=== PATIENT | male | born 1995 | race Caucasian/White ===

== ENCOUNTER → 2018-10-17 | Outpatient (CLI) | payer OTHER, MEDICAID ==
[~2018-10-17] MED LIST: ACET-683 PO; INVE234I IM
[2018-10-17 11:12] LABS: CHOLESTEROL RISK RATIO 2.781 (<5)
== END ==
LOC: M LAB 09:44
PROVIDERS: ATTEND Family Medicine
DX: Z13.1 Encounter for screening for diabetes mellitus (principal); Z13.220 Encounter for screening for lipoid disorders

== ENCOUNTER → 2019-04-24 | Outpatient (CLI) | payer OTHER, MEDICAID ==
[2019-04-24 13:51] LABS: ALT/SGPT 30 U/L (12-78); BILIRUBIN,TOTAL 0.4 MG/DL (0.2-1.0); BLOOD UREA NITROGEN 12 MG/DL (7-18); CALCIUM LEVEL 9.3 MG/DL (8.5-10.1); CARBON DIOXIDE LEVEL 27 MEQ/L (21-32); CHLORIDE LEVEL 104 MEQ/L (98-107); CHOLESTEROL LEVEL 159 MG/DL (<200); CHOLESTEROL RISK RATIO 3.533 (<5); CREATININE FOR GFR 0.81 MG/DL (0.70-1.30); GLOMERULAR FILTRATION RATE > 60.0 (>60); GLUCOSE, FASTING 94 MG/DL (70-100); HDL CHOLESTEROL 45 MG/DL (>40); LDL CHOLESTEROL 88 MG/DL (<100); NON-HDL-C 114 MG/DL; SODIUM LEVEL 138 MEQ/L (136-145); TOTAL PROTEIN 8.1 GM/DL (6.4-8.2); TRIGLYCERIDES LEVEL 130 MG/DL (<150)
== END ==
LOC: M LAB 11:25
PROVIDERS: ATTEND Psychiatry & Neurology Psychiatry
DX: Z51.81 Encounter for therapeutic drug level monitoring (principal)

== ENCOUNTER 2019-08-12 18:59 | Inpatient (IN) | payer MEDICAID, OTHER ==
[~2019-08-12] VITALS: Ht 182.9 cm; Wt 89.1 kg
[2019-08-12 19:48] LABS: HEMATOCRIT 43.3 % (42.0-52.0); HEMOGLOBIN 15.1 g/dl (13.5-17.5); MEAN CORPUSCULAR HEMOGLOBIN 27.7 pg (27.0-33.0); MEAN CORPUSCULAR HGB CONC 34.9 g/dl (32.0-36.5); MEAN CORPUSCULAR VOLUME 79.3 fl (80.0-96.0); PLATELET COUNT, AUTOMATED 345 10^3/uL (150-450); RED BLOOD COUNT 5.46 10^6/uL (4.30-6.10); WHITE BLOOD COUNT 11.3 10^3/uL (4.0-10.0)
[2019-08-12 20:14] LABS: AMPHETAMINES LEVEL URINE NEGATIVE (NEGATIVE); BARBITURATES URINE NEGATIVE (NEGATIVE); BENZODIAZEPINES URINE NEGATIVE (NEGATIVE); CANNABINOIDS URINE NEGATIVE (NEGATIVE); COCAINE METABOLITE URINE NEGATIVE (NEGATIVE); METHADONE URINE NEGATIVE (NEGATIVE); OPIATES URINE NEGATIVE (NEGATIVE); PHENCYCLIDINE URINE NEGATIVE (NEGATIVE)
[2019-08-12 20:27] LABS: ACETAMINOPHEN LEVEL < 2.0 UG/ML (10.0-30.0); ALBUMIN 3.9 GM/DL (3.2-5.2); ALT/SGPT 46 U/L (12-78); BILIRUBIN,DIRECT 0.1 MG/DL (0.0-0.2); BILIRUBIN,TOTAL 0.3 MG/DL (0.2-1.0); BLOOD UREA NITROGEN 13 MG/DL (7-18); CALCIUM LEVEL 9.2 MG/DL (8.5-10.1); CARBON DIOXIDE LEVEL 27 MEQ/L (21-32); CHLORIDE LEVEL 104 MEQ/L (98-107); CREATININE FOR GFR 0.88 MG/DL (0.70-1.30); ETHYL ALCOHOL (ETHANOL) < 0.003 % (0.000-0.010); GLOMERULAR FILTRATION RATE > 60.0 (>60); GLUCOSE, FASTING 101 MG/DL (70-100); POTASSIUM SERUM 3.6 MEQ/L (3.5-5.1); SALICYLATE LEVEL < 1.7 MG/DL (5.0-30.0); SODIUM LEVEL 139 MEQ/L (136-145); TOTAL PROTEIN 8.2 GM/DL (6.4-8.2)
[2019-08-12] MEDS ORDERED: MELA3TAB62 PO (21:00)
[2019-08-12] MEDS ORDERED: INVE234I IM (21:00)
[2019-08-12] MEDS ORDERED: C 50TAB PO (21:00)
[2019-08-12] MEDS ORDERED: VITAD1000T PO (21:00)
[2019-08-12] MEDS ORDERED: OLANZapine ORAL DISINTEGRATING TAB 5MG PO PRN (21:15)
[2019-08-12] MEDS ORDERED: MAALOX 30 ML SUSP *UDC PO PRN (21:15)
[2019-08-12] MEDS ORDERED: MOM 30ML SUSPENSION UDC PO PRN (21:15)
[2019-08-12 22:04] VITALS: BP 150/86
[2019-08-12] MEDS: QUEtiapine FUMARATE 50 MG TAB PO PRN (22:24)
[2019-08-13 06:28] VITALS: BP 134/66
[2019-08-13] MEDS ORDERED: risperiDONE 1 MG TAB PO SCH (09:00)
--- NOTE | 2019-08-13 09:12 | MHHPEPDOC ---
[facility] History & Physical History and Physical DATE OF ADMISSION: Aug 12, 2019 at 21:12 LEGAL STATUS AT ADMISSION: . CHIEF COMPLAINT: . HISTORY OF PRESENT ILLNESS: Patient is a 24-year-old male, who PSYCHIATRIC REVIEW OF SYSTEMS: Affective: . Anxiety: . Trauma: . Psychosis: . Personality: . PAST PSYCHIATRIC HISTORY: Prior Psychiatric Disorder: . Outpatient Treatment: . Suicidal/Self injurious: [Denies]. Psychotropic Medication History: . ALLERGIES: Please see below. FAMILY PSYCHIATRIC HISTORY: [Denies]. SOCIAL HISTORY: Early Relations/development: . Sibling order: . Paternal relationships: . Education: . Occupational: . Legal: . Marital: . Economic: . Supports: . Abuse/trauma: . SUBSTANCE ABUSE HISTORY: . PAST MEDICAL/SURGICAL HISTORY: [None]. VITAL SIGNS: Please see below. MENTAL STATUS EXAMINATION: General appearance: Patient is a -year old male, who is . Speech: . Thought processes: . Thought content: . Abstract reasoning and computation: . Description of associations: . Description of abnormal or psychotic thoughts: . Judgment: . Insight: . Orientation: . Recent and remote memory: . Attention span and concentration: . Fund of knowledge: . Mood: "." Affect: . DIAGNOSES: 1. . 2. . 3. . ASSESSMENT: PROBLEM LIST: 1. . 2. . 3. . INITIAL TREATMENT PLAN: 1. Patient was admitted on a . 2. Complete history was obtained. 3. With patients permission, family will be contacted and database will be expanded. 4. Patients medication regimen will be reviewed and changed accordingly. 5. Patient will be provided with protected environment. 6. Patient will be treated with individual, group, and milieu therapies. 7. Patient will receive supportive psych-education. 8. Discharge planning will commence immediately. 9. Outpatient follow-up treatment will be strongly recommended. 10. The initial treatment plan will focus initially on: * Depression. * Risk for suicide. * Substance abuse. ESTIMATED LENGTH OF STAY: - DAYS. TIME SPENT COUNSELING AND COORDINATING INITIAL CARE: minutes. Vital Signs Vital Signs Date Time Temp Pulse Resp B/P (MAP) Pulse Ox O2 Delivery O2 Flow Rate FiO2 08/13/19 06:28 97.3 97 18 134/66 (88) 97 Room Air Laboratory Data 24H Labs Laboratory Tests 2 08/12/19 19:36: Urine Opiates Screen NEGATIVE, Urine Methadone Screen NEGATIVE, Urine Barbiturates Screen NEGATIVE, Urine Phencyclidine Screen NEGATIVE, Urine Amphetamines Screen NEGATIVE, Urine Benzodiazepines Screen NEGATIVE, Urine Cocaine Metabolite Screen NEGATIVE, Urine Cannabinoids Screen NEGATIVE 08/12/19 19:37: Nucleated Red Blood Cells % (auto) 0.0, Anion Gap 8, Glomerular Filtration Rate > 60.0, Calcium Level 9.2, Total Bilirubin 0.3, Direct Bilirubin 0.1, Aspartate Amino Transf (AST/SGOT) 23, Alanine Aminotransferase (ALT/SGPT) 46, Alkaline Phosphatase 108, Total Protein 8.2, Albumin 3.9, Albumin/Globulin Ratio 0.91L, Thyroid Stimulating Hormone (TSH) 2.330, Salicylates Level < 1.7L, Acetaminophen Level < 2.0L, Ethyl Alcohol Level < 0.003 CBC/BMP Laboratory Tests 08/12/19 19:37 Medications Scheduled Ascorbic Acid (Vitamin C) 500 Mg Tablet, 500 MG PO DAILY, (Reported) Cholecalciferol (Vitamin D3) (Vitamin D3) 1,000 Unit Tablet, 1,000 UNITS PO DAILY, (Reported) Melatonin (Melatonin) 3 Mg Tablet, 3 MG PO QHS, (Reported) Paliperidone Palmitate (Invega Sustenna) 234 Mg/1.5 Ml Syringe, 234 MG IM QMONTH, (Reported) Allergies Coded Allergies: No Known Drug Allergies (Verified Allergy, Unknown, 10/13/18) HIRO YEBOAH DO Aug 13, 2019 09:12
[2019-08-13] MEDS ORDERED: ALBUTEROL SULFATE 2.5 MG/0.5 ML INH NEB SOLN INH PRN (13:00)
--- NOTE | 2019-08-13 13:09 | HPEPDOC ---
General Date of Admission Aug 12, 2019 at 21:12 Date of Service: Aug 13, 2019 Chief Complaint The patient is a 24-year-old male Who presented to the emergency room with complaints of suicidal ideation History of Present Illness Patient is a 24-year-old male with a past medical history of asthma, anxiety and depression who presented to the emergency room with complaints of suicidal ideation. Upon arrival to emergency room, patient was evaluated and admitted to inpatient mental health unit under the care of psychiatry. Hospitalist services consult for medical screening evaluation. Currently patient denies any headache, lightheadedness, dizziness, nausea, vomiting, chest pain, shortness of breath, palpitations, cough, abdominal pain, constipation, diarrhea or urinary discomfort. Patient denies any recent fevers or chills. They do report that they have a slight increase in weight, but reports her appetite is fairly normal. Patient reports some left ankle pain that he attributes to walking excessively. Home Medications Scheduled Ascorbic Acid (Vitamin C) 500 Mg Tablet, 500 MG PO DAILY, (Reported) Cholecalciferol (Vitamin D3) (Vitamin D3) 1,000 Unit Tablet, 1,000 UNITS PO DAILY, (Reported) Melatonin (Melatonin) 3 Mg Tablet, 3 MG PO QHS, (Reported) Paliperidone Palmitate (Invega Sustenna) 234 Mg/1.5 Ml Syringe, 234 MG IM QMONTH, (Reported) Allergies Coded Allergies: No Known Drug Allergies (Verified Allergy, Unknown, 10/13/18) Past Medical History Medical History Asthma, Anxiety and Depression Surgical History Double hernia surgery Rhinoplasty Family History - Mother with a history of multiple sclerosis - Father with a history of nerve pain - Paternal uncle with a history of lung cancer secondary to smoking Social History - Patient reports that he seldom smokes patient did report a remote history of alcohol use with whiskey. Patient reports that he smokes marijuana, last use was last year - Denies recent travel or sick contacts - Lives with parents and brother - Occupation; currently unemployed and living at home Review of Systems Other systems 10 point review of systems complete, all negative otherwise stated in HPI Vital Signs - Vitals: BP 134/66, HR 97, RR 18, Sat 97%RA, Temp 97.3F - General: Lying in bed, No acute distress, Speaking in full sentences, AAOx3 - HEENT: NC, AT, PERRLA, EOMI - CVS: RRR, +S1S2 - Lungs: Fair air entry bilaterally, No appreciable wheezing / rales / rhonchi - Abdomen: Soft, Non-distended, Non-tender - Extremities: No lower extremity edema, No calf tenderness - Neuro: No focal motor or sensory deficit - Skin: No visible rashes Laboratory Data Labs 24H Laboratory Tests 2 08/12/19 19:36: Urine Opiates Screen NEGATIVE, Urine Methadone Screen NEGATIVE, Urine Barbiturates Screen NEGATIVE, Urine Phencyclidine Screen NEGATIVE, Urine Amphetamines Screen NEGATIVE, Urine Benzodiazepines Screen NEGATIVE, Urine Coca ine Metabolite Screen NEGATIVE, Urine Cannabinoids Screen NEGATIVE 08/12/19 19:37: Nucleated Red Blood Cells % (auto) 0.0, Anion Gap 8, Glomerular Filtration Rate > 60.0, Calcium Level 9.2, Total Bilirubin 0.3, Direct Bilirubin 0.1, Aspartate Amino Transf (AST/SGOT) 23, Alanine Aminotransferase (ALT/SGPT) 46, Alkaline Phosphatase 108, Total Protein 8.2, Albumin 3.9, Albumin/Globulin Ratio 0.91L, Thyroid Stimulating Hormone (TSH) 2.330, Salicylates Level < 1.7L, Acetaminophen Level < 2.0L, Ethyl Alcohol Level < 0.003 CBC/BMP Laboratory Tests 08/12/19 19:37 Plan / VTE VTE Prophylaxis Ordered?: Yes Plan Plan Anxiety / Depression / Suicidal ideation - Presented to the emergency room with complaints of sweats at ideation - Currently is being managed by psychiatry Asthma - No evidence of exacerbation at this time - Patient reports that he uses an inhaler during emergencies - Will start albuterol PRN DVT prophylaxis - Will start early ambulation Female well services operator was present throughout the duration of his history and physical examination Thank you for this consultation; please reconsult as needed ARMIDA MCCABE MD Aug 13, 2019 13:09
[2019-08-13 16:00] VITALS: BP 138/86
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
[2019-08-13 17:54] VITALS: BP 138/86
[2019-08-13] MEDS: PALIPERIDONE 6 MG ER TAB (INVEGA) PO SCH (20:39)
[2019-08-13] MEDS: QUEtiapine FUMARATE 50 MG TAB PO PRN (21:43)
[2019-08-14 06:37] VITALS: BP 142/96
--- NOTE | 2019-08-14 09:13 | MHIPNPDOC ---
[facility] Progress Note Progress Note Inpatient Progress Note Cedrick Lozano MRN: N/A Date of : N/A Date of Service: 08/14/2019 History of Present Illness 24-year-old man with a history of psychotic disorder presents after his Invega Sustenna appears to stop working in the final weeks of his dose, he had presented with auditory hallucinations and paranoia. Interval History Patient is met with today. He reports that he is doing much better on the Invega 6 mg at night that has been augmenting his lower serum levels of Invega Sustenna. He reports he is doing well, staff report that he is engaging in treatment, has no behavioral problems, and has no complaints today. He appears more amenable and less flat. Review Of Systems General: Denies fever or appetite changes Cardiovascular: Denies Chest pain or palpations GI: Denies Nausea, vomiting, or bowel changes Respiratory: Denies shortness of breath or cough Neuro: Denies dizziness, tremors Derm: Denies any rashes or pruritus : Denies any dysuria or urinary problems MSK: Denies any muscle tightness or stiffness HEENT: Denies any vision changes or headaches Psychotherapy None on this visit. Vital Signs Reviewed. Mental Status Examination General: Well dressed with good hygiene Speech: Spontaneous and fluid Thought processes: Linear and logical MSK: Smooth and coordinated gait, no signs of tremors or involuntary orofacial movements Thought content: Less hopeless. Abstract reasoning, and computation: Intact Description of associations: Intact Description of abnormal or psychotic thoughts: Denies any suicidal or homicidal ideation. Denies any auditory or visual hallucinations. Does not appear to be responding to internal stimuli. Does not appear to be endorsing any bizarre or paranoid ideation. Judgment: Improved. Insight: Improved. Orientation: Alert and orientated 3 Cognition: Grossly normal Recent and remote memory: Intact Attention span and concentration: Intact Fund of knowledge: Adequate Mood: "okay" Affect: More reactive. Diagnoses Schizophrenia. Assessment and Plan Schizophrenia: Continue Invega 6 mg nightly of extended release, will give pat ient Invega Sustenna 234 mg before being discharged, further observation but likely discharge Saturday. Disposition Likely discharge Saturday after observation and titration of medications, we'll perform metabolic monitoring prior to discharge. Conversion to voluntary today. Time Spent 15 minutes [id number]. Saturday Vital Signs Vital Signs Date Time Temp Pulse Resp B/P (MAP) Pulse Ox O2 Delivery O2 Flow Rate FiO2 08/14/19 06:37 97.6 108 16 142/96 (111) 99 Room Air Current Medications Current Medications Medications (Trade) Dose Ordered Sig/Gerson Route PRN Reason Start Time Stop Time Status Last Admin Dose Admin Acetaminophen (Tylenol Tab) 650 mg Q6HP PRN PO HEADACHE or DISCOMFORT 08/12/19 21:15 Al Hydrox/Mg Hydrox/Simethicone (Mylanta) 30 ml Q4HP PRN PO HEARTBURN/INDIGESTION 08/12/19 21:15 Albuterol Sulfate (Proventil Neb) 2.5 mg Q2HP PRN INH SOB/WHEEZING 08/13/19 13:00 Home Med (Med Rec Complete!) ASDIRECTED XX 08/12/19 21:15 08/12/19 21:03 DC Magnesium Hydroxide (Milk Of Magnesia) 30 ml DAILYPRN PRN PO CONSTIPATION 08/12/19 21:15 Olanzapine (ZyPREXA ZYDIS) 5 mg Q6HP PRN PO AGITATION/Psychosis 08/12/19 21:15 Paliperidone (Invega) 6 mg QHS PO 08/13/19 21:00 08/13/19 20:39 Quetiapine Fumarate (SEROquel) 50 mg QHS PRN PO Insomnia 08/12/19 21:15 08/13/19 21:43 Risperidone (RisperDAL) 1 mg BID PO 08/13/19 09:00 08/13/19 10:17 DC 08/13/19 08:39 Allergies Coded Allergies: No Known Drug Allergies (Verified Allergy, Unknown, 10/13/18) HIRO YEBOAH DO Aug 14, 2019 09:13
[2019-08-14 16:00] VITALS: BP 120/80
[2019-08-14] MEDS: QUEtiapine FUMARATE 50 MG TAB PO PRN (20:14)
[2019-08-14] MEDS: PALIPERIDONE 6 MG ER TAB (INVEGA) PO SCH (20:14)
[2019-08-14] MEDS: ACETAMINOPHEN TAB 650MG DOSE (2X325MG) PO PRN (21:16)
[2019-08-15 06:27] VITALS: BP 132/71
--- NOTE | 2019-08-15 11:46 | MHIPNPDOC ---
[facility] Progress Note Progress Note Inpatient Progress Note Cedrick Lozano MRN: N/A Date of : N/A Date of Service: 08/15/2019 History of Present Illness 24-year-old man with a history of psychotic disorder presents after his Invega Sustenna appears to stop working in the final weeks of his dose, he had presented with auditory hallucinations and paranoia. Interval History The patient was met with today. He reports he is doing much better, sleeping better, and has no auditory or visual hallucinations at this time. He reports he is tolerating the medication well, staff report that he is doing well, no major behavioral problems overnight and he's been friendly and amenable to treatment. Review Of Systems General: Denies fever or appetite changes Cardiovascular: Denies Chest pain or palpations GI: Denies Nausea, vomiting, or bowel changes Respiratory: Denies shortness of breath or cough Neuro: Denies dizziness, tremors Derm: Denies any rashes or pruritus : Denies any dysuria or urinary problems MSK: Denies any muscle tightness or stiffness HEENT: Denies any vision changes or headaches Psychotherapy None on this visit. Vital Signs Reviewed. Mental Status Examination General: Well dressed with good hygiene Speech: Spontaneous and fluid Thought processes: Linear and logical MSK: Smooth and coordinated gait, no signs of tremors or involuntary orofacial movements Thought content: Less hopeless. Abstract reasoning, and computation: Intact Description of associations: Intact Description of abnormal or psychotic thoughts: Denies any suicidal or homicidal ideation. Denies any auditory or visual hallucinations. Does not appear to be responding to internal stimuli. Does not appear to be endorsing any bizarre or paranoid ideation. Judgment: Improved. Insight: Improved. Orientation: Alert and orientated 3 Cognition: Grossly normal Recent and remote memory: Intact Attention span and concentration: Intact Fund of knowledge: Adequate Mood: "okay" Affect: More reactive. Diagnoses Schizophrenia. Assessment and Plan Schizophrenia: Continue Invega 6 mg nightly of extended release, will give patient Invega Sustenna 234 mg before being discharged, further observation but likely discharge Saturday. Disposition Discharge on Saturday if continues to improve. Time Spent 15 minutes [id number]. Saturday Vital Signs Vital Signs Date Time Temp Pulse Resp B/P (MAP) Pulse Ox O2 Delivery O2 Flow Rate FiO2 08/15/19 06:53 100.1 08/15/19 06:27 96 16 132/71 (91) 99 Room Air Current Medications Current Medications Medications (Trade) Dose Ordered Sig/Gerson Route PRN Reason Start Time Stop Time Status Last Admin Dose Admin Acetaminophen (Tylenol Tab) 650 mg Q6HP PRN PO HEADACHE or DISCOMFORT 08/12/19 21:15 08/14/19 21:16 Al Hydrox/Mg Hydrox/Simethicone (Mylanta) 30 ml Q4HP PRN PO HEARTBURN/INDIGESTION 08/12/19 21:15 Albuterol Sulfate (Proventil Neb) 2.5 mg Q2HP PRN INH SOB/WHEEZING 08/13/19 13:00 Home Med (Med Rec Complete!) ASDIRECTED XX 08/12/19 21:15 08/12/19 21:03 DC Magnesium Hydroxide (Milk Of Magnesia) 30 ml DAILYPRN PRN PO CONSTIPATION 08/12/19 21:15 Olanzapine (ZyPREXA ZYDIS) 5 mg Q6HP PRN PO AGITATION/Psychosis 08/12/19 21:15 Paliperidone (Invega) 6 mg QHS PO 08/13/19 21:00 08/14/19 20:14 Quetiapine Fumarate (SEROquel) 50 mg QHS PRN PO Insomnia 08/12/19 21:15 08/14/19 20:14 Risperidone (RisperDAL) 1 mg BID PO 08/13/19 09:00 08/13/19 10:17 DC 08/13/19 08:39 Allergies Coded Allergies: No Known Drug Allergies (Verified Allergy, Unknown, 10/13/18) HIRO YEBOAH DO Aug 15, 2019 11:46
[2019-08-15 16:05] VITALS: BP 150/79
[2019-08-15] MEDS: ACETAMINOPHEN TAB 650MG DOSE (2X325MG) PO PRN (17:59)
[2019-08-15] MEDS: QUEtiapine FUMARATE 50 MG TAB PO PRN (20:42)
[2019-08-15] MEDS: PALIPERIDONE 6 MG ER TAB (INVEGA) PO SCH (20:42)
[2019-08-16 06:10] VITALS: BP 122/81
[2019-08-16] MEDS ORDERED: ALBUTEROL 90 MCG/ACT 8GM HFA INHALER INH PRN (09:15)
[2019-08-16 09:36] LABS: BASO % 0.2 % (0.0-1.0); EOS # 0.2 10^3/uL (0.0-0.5); EOS % 1.6 % (0.0-3.0); HEMATOCRIT 41.5 % (42.0-52.0); HEMOGLOBIN 14.5 g/dl (13.5-17.5); LYMPH # 2.4 10^3/uL (1.5-5.0); MEAN CORPUSCULAR HEMOGLOBIN 28.2 pg (27.0-33.0); MEAN CORPUSCULAR HGB CONC 34.9 g/dl (32.0-36.5); MEAN CORPUSCULAR VOLUME 80.6 fl (80.0-96.0); MONO # 1.2 10^3/uL (0.0-0.8); MONO % 9.4 % (0.0-5.0); NEUTROPHILS # 8.3 10^3/uL (1.5-8.5); NEUTROPHILS % 68.4 % (36.0-66.0); PLATELET COUNT, AUTOMATED 310 10^3/uL (150-450); RED BLOOD COUNT 5.15 10^6/uL (4.30-6.10); WHITE BLOOD COUNT 12.2 10^3/uL (4.0-10.0)
[2019-08-16 09:59] LABS: BLOOD UREA NITROGEN 15 MG/DL (7-18); CARBON DIOXIDE LEVEL 26 MEQ/L (21-32); CHLORIDE LEVEL 104 MEQ/L (98-107); CPK CREATINE PHOSPHOKINASE 77 U/L (39-308); CREATININE FOR GFR 1.04 MG/DL (0.70-1.30); GLOMERULAR FILTRATION RATE > 60.0 (>60); GLUCOSE, FASTING 117 MG/DL (70-100); MAGNESIUM LEVEL 1.9 MG/DL (1.8-2.4); POTASSIUM SERUM 3.7 MEQ/L (3.5-5.1); SODIUM LEVEL 142 MEQ/L (136-145)
--- NOTE | 2019-08-16 10:10 | REP ---
CHEST: REASON: Fever. FINDINGS: The technique utilized in obtaining the radiograph has magnified the cardiac silhouette and accentuated the interstitial markings. The superior mediastinal structures are midline. The cardiac silhouette is unremarkable in size, shape, and position. The diaphragmatic surfaces of the lungs are regular, and the costophrenic angles are clear. The pulmonary lindsey are clear. The imaged osseous structures are intact. IMPRESSION: There is no acute cardiopulmonary disease. Electronically Signed by Jonah Hensley DO 08/16/2019 10:46 A
--- NOTE | 2019-08-16 10:40 | MHDSPDOC ---
[facility] Discharge Summary Discharge Summary DATE OF ADMISSION: Aug 12, 2019 at 21:12 DATE OF DISCHARGE: 08/16/19 Discharge Cedrick Lozano MRN: N/[id number] Date of : N/A Date of Service: 08/16/2019 Diagnoses Schizophrenia. History of Present Illness 24-year-old man with a history of psychotic disorder presents after his Invega Sustenna appears to stop working in the final weeks of his dose, he had presented with auditory hallucinations and paranoia. Consultants Involved Hospitalist/PCP screening Treatment and Progress On The Unit The patient was admitted to the inpatient mental health unit and subsequently started on 6 mg of the equivalent Invega to use injectable, and he noted that he had had auditory hallucinations more frequently in the last week prior to his next injection. He had been replaced onto 6 mg of the oral medications and did well. He was able to stabilize with no further auditory hallucinations, was cooperative retreat with no major behavioral problems. He attended to treatment and had an uneventful admission. However, on the last day of his admission, he had a fever and tachycardia with a negative CK. It was determined that he pos sibly could be suffering from sepsis and he was subsequently sent to the medical floor and psychiatrically discharged. Discharge Assessment 27-year-old man with a history of schizophrenia and does well on 6 mg on Invega, I recommended that medicine continue his Invega as there is no signs of NMS, he will be treated on the medical floor; however, he will not need a one-to-one sitter or to be held against his will, as he is psychiatrically stable at this time and was triaged for discharge on the following day. The patient at the time of discharge did not meet criteria for involuntary admission/extension due to having a normal mental status exam, fair insight into the situation, They are engaged in the discharge process, as well as being friendly and amenable in behavioral control and havent been engaging in any observed concerning behavior or ideation recently. They decline voluntary exte nsion/admission at this time and must be discharged in [place], as Im unable to make a case for holding the patient against their will. They may have historical risk factors of admissions and other interactions with psychiatry however, those are not modifiable from a clinical perspective. The patient will need to be discharged in [place]. . S Mental Status Examination Please refer to my previous mental status exam. Review of the chart indicates no signs of suicidal or homicidal ideation and no sense of resurgence of auditory hallucinations prior to his discharge as he was discharged in the evening due to the acuity of the situation. Follow Up The social work team worked during the predischarge meeting in order to evaluate for further issues of lethality address them fully before discharge. They worked on safety planning with the patient's family members in order to ensure that the patient will have a safe and effective discharge. Time Spent The amount of time spent in the coordination of care for this patient was approximately 45 minutes. Saturday Vital Signs/I&Os Vital Signs Date Time Temp Pulse Resp B/P (MAP) Pulse Ox O2 Delivery O2 Flow Rate FiO2 08/16/19 06:10 99.7 110 16 122/81 (95) 99 Room Air Laboratory Data Labs 24H Laboratory Tests 2 08/15/19 21:32: Total Creatine Kinase 100 08/16/19 09:04: Total Creatine Kinase 77, Immature Granulocyte % (Auto) 0.4, Neutrophils (%) (Auto) 68.4H, Lymphocytes (%) (Auto) 20.0L, Monocytes (%) (Auto) 9.4H, Eosinophils (%) (Auto) 1.6, Basophils (%) (Auto) 0.2, Neutrophils # (Auto) 8.3, Lymphocytes # (Auto) 2.4, Monocytes # (Auto) 1.2H, Eosinophils # (Auto) 0.2, Basophils # (Auto) 0.0, Nucleated Red Blood Cells % (auto) 0.0, Anion Gap 12, Glomerular Filtration Rate > 60.0, Lactic Acid Level 2.3*H, Calcium Level 9.0, Magnesium Level 1.9 08/16/19 10:15: CBC/BMP Laboratory Tests 08/16/19 09:04 Microbiology Microbiology 08/16/19 Blood Culture, Received Pending 08/16/19 Blood Culture, Received Pending 08/15/19 Coronavirus COVID-19 PCR (JANIS), Received Pending 08/15/19 Respiratory Virus Panel (PCR) (JANIS) - Final, Complete Medications Scheduled Ascorbic Acid (Vitamin C) 500 Mg Tablet, 500 MG PO DAILY, (Reported) Cholecalciferol (Vitamin D3) (Vitamin D3) 1,000 Unit Tablet, 1,000 UNITS PO DAILY, (Reported) Melatonin (Melatonin) 3 Mg Tablet, 3 MG PO QHS, (Reported) Paliperidone (Paliperidone ER) 6 Mg Tab.er.24, 6 MG PO QHS for thoughts for 7 Days, #7 Paliperidone Palmitate (Invega Sustenna) 234 Mg/1.5 Ml Syringe, 234 MG IM QMONTH, (Reported) Allergies Coded Allergies: No Known Drug Allergies (Verified Allergy, Unknown, 10/13/18) HIRO YEBOAH DO Aug 16, 2019 10:40
[2019-08-16] MEDS ORDERED: PALI1TAB3 PO (10:43)
[2019-08-16] MEDS: ACETAMINOPHEN TAB 650MG DOSE (2X325MG) PO PRN (14:16)
[2019-08-16 14:26] VITALS: BP 135/88
[2019-08-16] MEDS ORDERED: PALIPERIDONE 6 MG ER TAB (INVEGA) PO SCH (21:00)
[2019-08-17] MEDS ORDERED: AMOX875T2 PO (10:14)
== END 2019-08-16 14:51 | disposition short-term general hospital (02) | DRG 750 ==
LOC: M ED 18:59 → M ED INP 21:12 → M PSY 21:44
PROVIDERS: ADMIT Psychiatry & Neurology Psychiatry; ATTEND Psychiatry & Neurology Addiction Medicine
DX: F20.0 Paranoid schizophrenia (principal); R45.851 Suicidal ideations; Z79.899 Other long term (current) drug therapy; J45.909 Unspecified asthma, uncomplicated; R50.9 Fever, unspecified; R00.0 Tachycardia, unspecified

== ENCOUNTER 2019-08-16 10:46 | Observation (INO) | payer OTHER ==
[~2019-08-16] VITALS: Ht 182.9 cm; Wt 87.5 kg
[~2019-08-16 10:46] MED LIST changes: +C 50TAB PO; +MELA3TAB62 PO; +PALI1TAB3 PO; +VITAD1000T PO
[2019-08-16] MEDS ORDERED: ALBUTEROL 90 MCG/ACT 8GM HFA INHALER INH PRN (12:45)
--- NOTE | 2019-08-16 12:45 | HPEPDOC ---
General Date of Admission 08/16/2019 Date of Service: Aug 16, 2019 Chief Complaint The patient is a 24-year-old male who was transferred to inpatient acute medical status after patient was noted to have a fever in inpatient mental health unit History of Present Illness Patient is a 24-year-old male with a PMHx of Asthma, Anxiety / Depression and recent suicidal ideation who was transferred to the inpatient medical side of the hospital for fever while at inpatient mental health unit. Patient remained in inpatient mental health unit from 08/12-08/15 for suicidal ideation that was managed by his psychiatrist. Patient was initially evaluated by hospitalist on 08/12. At that time, patient did not have any significant findings on review of systems. However, he did report left ankle pain extubated 2 excessive walking. Hospitalist service was again consulted on 08/15 were evaluation of fever that he experienced on 08/14. Initially there was a thought that this could be related to neuroleptic malignant syndrome. Psychiatrist had checked a CK level that resulted within normal range. Upon evaluation of patient this morning patient was placed in a room for COVID precautions. He had denied any headache, nausea, vomiting, chest pain, shortness of breath, palpitations, cough, abdominal pain, constipation, diarrhea, or urinary discomfort. Patient noted that yesterday he did experience chills. Reports that his left ankle pain that he experienced initially on 08/12, has completely resolved. Patient was discharged from inpatient mental health unit and admitted to the hospital for further evaluation of his lactic acidosis and fevers. Home Medications Scheduled Ascorbic Acid (Vitamin C) 500 Mg Tablet, 500 MG PO DAILY, (Reported) Cholecalciferol (Vitamin D3) (Vitamin D3) 1,000 Unit Tablet, 1,000 UNITS PO DAILY, (Reported) Melatonin (Melatonin) 3 Mg Tablet, 3 MG PO QHS, (Reported) Paliperidone (Paliperidone ER) 6 Mg Tab.er.24, 6 MG PO QHS for thoughts Paliperidone Palmitate (Invega Sustenna) 234 Mg/1.5 Ml Syringe, 234 MG IM QMONTH, (Reported) Allergies Coded Allergies: No Known Drug Allergies (Verified Allergy, Unknown, 10/13/18) Past Medical History Medical History Asthma, Anxiety and Depression Surgical History Double hernia surgery Rhinoplasty Family History - Mother with a history of multiple sclerosis - Father with a history of nerve pain - Paternal uncle with a history of lung cancer secondary to smoking Social History - Patient reports that he seldom smokes patient did report a remote history of alcohol use with whiskey. Patient reports that he smokes marijuana, last use was last year - Denies recent travel or sick contacts - Lives with parents and brother - Occupation; currently unemployed and living at home Review of Systems Other systems 10 point review of systems complete, all negative otherwise stated in HPI Vital Signs - Vitals: BP 122/81, HR 110, RR 16, Sat 99%RA, Temp 99.7F - General: Sitting up in bed, appears to be comfortable, AAOx3 - HEENT: NC, AT, PERRLA, EOMI - CVS: +S1S2 - Lungs: Fair air entry bilaterally, auscultation does not reveal any evidence of rhonchi or crackles, mild wheezing appreciated bilaterally - Abdomen: Soft, remains nondistended and nontender. No guarding, rigidity or rebound - Extremities: LE are free of any pitting edema, No calf tenderness - Neuro: No focal motor or sensory deficit - Skin: No visible rashes Plan / VTE VTE Prophylaxis Ordered?: Yes Plan Plan Fevers - possibly 2/2 sepsis - etiology unclear, possibly 2/2 medication related - Clinically patient has denied any positives on review of systems - Yesterday, patient did experience a fever as high as 101.5 - Mild leukocytosis still noted; lactic acidosis of 2.3 - UA without evidence of infection - Blood cultures pending - Respiratory panel 08/14: Negative; COVID 19 Pending - Will check EKG to evaluate QTc - Will continue with IV fluid hydration at this time; Will start Augmentin for now Lactic acidosis - Will repeat Lactic acid level - Will start IV fluid hydration Elevated Cr compared to baseline - Will start IV fluid hydration Asthma - Physical does reveal very faint wheezing on expiration - Will continue with albuterol inhaled PRN Anxiety / Depression - s/p Suicidal ideation - Patient was seen and evaluated by psychiatry who have cleared patient for discharge home - Patient does not require any sitters at this time - Will continue with antidepressant/antipsychotic medications as per psychiatrys recommendation - c/w Paliperidone and Quetiapine DVT prophylaxis - Will start Heparin ARMIDA MCCABE MD Aug 16, 2019 12:45
[2019-08-16 13:00] VITALS: BP 138/81
[2019-08-16 15:00] VITALS: BP 138/81
[2019-08-16] MEDS: NS 1,000 ML IV SCH ×2 (15:47→21:22)
[2019-08-16 16:00] VITALS: O2SAT 98
[2019-08-16 16:06] LABS: INR 0.99; PROTHROMBIN TIME 12.8 SECONDS (11.8-14.0)
[2019-08-16 16:07] LABS: PARTIAL THROMBOPLASTIN TIME 28.3 SECONDS (25.0-38.4)
[2019-08-16 16:09] LABS: D-DIMER QUANT 335.66 ng/ml (<500)
[2019-08-16 16:42] LABS: C REACTIVE PROTEIN QUANTITATIV 5.19 MG/DL (0.00-0.30); CK-MB VALUE MASS < 1.0 NG/ML (<3.6); CPK CREATINE PHOSPHOKINASE 104 U/L (39-308); FERRITIN 55 NG/ML (26-388); LDH LACTATE DEHYDROGENASE 278 U/L (87-241); MB/CK RELATIVE INDEX 0.96 (< OR =4); NT-PRO BNP 9 PG/ML (<125); TRIGLYCERIDES LEVEL 92 MG/DL (<150); TROPONIN I < 0.02 NG/ML (< 0.10)
[2019-08-16] MEDS: AUGMENTIN 875 MG TAB PO SCH (17:27)
[2019-08-16 20:00] VITALS: O2SAT 99
[2019-08-16 21:00] VITALS: BP 136/88
[2019-08-16] MEDS ORDERED: QUEtiapine FUMARATE 50 MG TAB PO SCH (21:00)
[2019-08-16] MEDS ORDERED: PALIPERIDONE 3 MG ER TAB (INVEGA) PO SCH (21:00)
[2019-08-16] MEDS: HEPARIN SOD (PORCINE) 5000UNITS/ML VIAL (J1644 PER 1000UNITS) SQ SCH (21:22)
[2019-08-17] VITALS: O2SAT 96
[2019-08-17 04:00] VITALS: BP 143/72; O2SAT 97
[2019-08-17] MEDS: NS 1,000 ML IV SCH (04:04)
[2019-08-17 04:50] LABS: BASO % 0.3 % (0.0-1.0); EOS # 0.2 10^3/uL (0.0-0.5); EOS % 1.6 % (0.0-3.0); HEMATOCRIT 38.9 % (42.0-52.0); HEMOGLOBIN 13.6 g/dl (13.5-17.5); LYMPH # 2.7 10^3/uL (1.5-5.0); LYMPH % 22.3 % (24.0-44.0); MEAN CORPUSCULAR HEMOGLOBIN 28.2 pg (27.0-33.0); MEAN CORPUSCULAR VOLUME 80.7 fl (80.0-96.0); MONO # 1.1 10^3/uL (0.0-0.8); MONO % 8.7 % (0.0-5.0); NEUTROPHILS % 66.9 % (36.0-66.0); PLATELET COUNT, AUTOMATED 286 10^3/uL (150-450); RED BLOOD COUNT 4.82 10^6/uL (4.30-6.10)
[2019-08-17] MEDS: AUGMENTIN 875 MG TAB PO SCH (05:00)
[2019-08-17] MEDS: HEPARIN SOD (PORCINE) 5000UNITS/ML VIAL (J1644 PER 1000UNITS) SQ SCH (05:01)
[2019-08-17 05:03] LABS: INR 1.12; PROTHROMBIN TIME 14.1 SECONDS (11.8-14.0)
[2019-08-17 05:04] LABS: FIBRINOGEN 426 MG/DL (221-452); PARTIAL THROMBOPLASTIN TIME 32.4 SECONDS (25.0-38.4)
[2019-08-17 05:20] LABS: ALBUMIN 3.2 GM/DL (3.2-5.2); ALT/SGPT 33 U/L (12-78); BILIRUBIN,DIRECT 0.2 MG/DL (0.0-0.2); BILIRUBIN,TOTAL 0.7 MG/DL (0.2-1.0); BLOOD UREA NITROGEN 9 MG/DL (7-18); C REACTIVE PROTEIN QUANTITATIV 4.35 MG/DL (0.00-0.30); CALCIUM LEVEL 8.5 MG/DL (8.5-10.1); CARBON DIOXIDE LEVEL 25 MEQ/L (21-32); CHLORIDE LEVEL 107 MEQ/L (98-107); CPK CREATINE PHOSPHOKINASE 57 U/L (39-308); CREATININE FOR GFR 0.73 MG/DL (0.70-1.30); D-DIMER QUANT < 270 ng/ml (<500); FERRITIN 53 NG/ML (26-388); GLOMERULAR FILTRATION RATE > 60.0 (>60); GLUCOSE, FASTING 96 MG/DL (70-100); LDH LACTATE DEHYDROGENASE 158 U/L (87-241); MAGNESIUM LEVEL 1.8 MG/DL (1.8-2.4); POTASSIUM SERUM 3.9 MEQ/L (3.5-5.1); SODIUM LEVEL 141 MEQ/L (136-145); TOTAL PROTEIN 7.2 GM/DL (6.4-8.2); TROPONIN I < 0.02 NG/ML (< 0.10)
--- NOTE | 2019-08-17 07:45 | ECGEPIP ---
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
[2019-08-17 08:00] VITALS: BP 132/91; O2SAT 95
[2019-08-17 08:39] LABS: HIV 1&2 SCREEN CENTAUR NEGATIVE (NEGATIVE)
[2019-08-17] MEDS ORDERED: AMOX875T2 PO (10:14)
--- NOTE | 2019-08-17 15:37 | DS.PDOC ---
Discharge Summary General Date of Admission Aug 16, 2019 at 14:55 Date of Discharge 08/17/2019 Discharge Summary PROCEDURES PERFORMED DURING STAY: [None]. ADMITTING DIAGNOSES / DISCHARGE DIAGNOSES: s/p Fevers - possibly 2/2 sepsis - etiology unclear, possibly 2/2 medication related s/p Lactic acidosis Elevated Cr compared to baseline Asthma Anxiety / Depression DVT prophylaxis COMPLICATIONS/CHIEF COMPLAINT: Fever HISTORY OF PRESENT ILLNESS: Patient is a 24-year-old male with a PMHx of Asthma, Anxiety / Depression and recent suicidal ideation who was transferred to the inpatient medical side of the hospital for fever while at inpatient mental health unit. Patient remained in inpatient mental health unit from 08/12-08/15 for suicidal ideation that was managed by his psychiatrist. Patient was initially evaluated by hospitalist on 08/12. At that time, patient did not have any significant findings on review of systems. However, he did report left ankle pain extubated 2 excessive walking. Hospitalist service was again consulted on 08/15 were evaluation of fever that he experienced on 08/14. Initially there was a thought that this could be related to neuroleptic malignant syndrome. Psychiatrist had checked a CK level that resulted within normal range. Upon evaluation of patient he was on COVID precautions. Patient was admitted to hospitalist service for evaluation of fever. HOSPITAL COURSE: s/p Fevers - possibly 2/2 sepsis - etiology unclear, possibly 2/2 medication related - Clinically patient has denied any positives on review of systems - Yesterday, patient did experience a fever as high as 101.5; since admission to ICU patient has not experienced any fevers - Mild leukocytosis improved / Blood cultures at 24 hours negative - UA without evidence of infection - Respiratory panel 08/14: Negative; COVID 19 08/15: - s/p IV fluid hydration; will complete Augmentin course as outpatinet - Will follow up with PCP within 7 days s/p Lactic acidosis - Will repeat Lactic acid level - s/p IV fluid hydration Elevated Cr compared to baseline - Will start IV fluid hydration Asthma - Physical does reveal very faint wheezing on expiration - c/w albuterol inhaled PRN Anxiety / Depression - s/p Suicidal ideation - Patient was seen and evaluated by psychiatry who have cleared patient for discharge home - Patient does not require any sitters at this time - c/w antidepressant/antipsychotic medications as per psychiatrys recommendation - c/w Paliperidone and Quetiapine DVT prophylaxis - c/w Heparin DISCHARGE MEDICATIONS: Please see below. ALLERGIES: Please see below. PHYSICAL EXAMINATION ON DISCHARGE: Vitals (See below) General: Lying in bed, appears comfortable, AAOx3 HEENT: NC, AT CVS: +S1S2 Lungs: Fair air entry b/l, no rhonchi / crackles / wheezing Abdomen: Soft, ND, NT Extremities: No evidence of edema, - Calf tenderness LABORATORY DATA: Please see below. ACTIVITY: [As tolerated]. INSTRUCTIONS: Follow-up with PCP and psychiatry within 7 days Remain compliant with treatment plan and medications Return to the ER if you experience any problems DISPOSITION: Home, Self-Care. DISCHARGE CONDITION: [Stable]. TIME SPENT ON DISCHARGE: 35 minutes Vital Signs/I&Os Vital Signs Date Time Temp Pulse Resp B/P (MAP) Pulse Ox O2 Delivery O2 Flow Rate FiO2 08/17/19 08:00 95 Room Air 08/17/19 08:00 96.4 112 20 132/91 (105) I&O- Last 24 Hours up to 6 AM 08/17/19 06:00 Intake Total 2720 ml Output Total 750 ml Balance 1970 ml Laboratory Data Labs 24H Laboratory Tests 2 08/16/19 15:35: Prothrombin Time 12.8, Prothromb Time International Ratio 0.99, Activated Partial Thromboplast Time 28.3, Fibrinogen 491H, D-Dimer, Quantitative 335.66, Lactic Acid Level 2.0 08/16/19 15:37: Ferritin 55, Lactate Dehydrogenase 278H, Total Creatine Kinase 104, Creatine Kinase MB < 1.0, Creatine Kinase MB Relative Index 0.96, Troponin I < 0.02, C- Reactive Protein, Quantitative 5.19H, JM-Qlp-X-Type Natriuretic Peptide 9, Triglycerides Level 92, HIV Antigen/Antibody Combo Qual NEGATIVE 08/16/19 17:27: Urine Color COLORLESS, Urine Appearance CLEAR, Urine pH 6.0, Urine Specific [place] 1.001L, Urine Protein NEGATIVE, Urine Glucose (UA) NEGATIVE, Urine Ketones NEGATIVE, Urine Blood NEGATIVE, Urine Nitrite NEGATIVE, Urine Bilirubin NEGATIVE, Urine Urobilinogen 0.2, Urine Leukocyte Esterase NEGATIVE, Urine WBC (Auto) 0, Urine RBC (Auto) 0, Urine Hyaline Casts (Auto) 0, Urine Bacteria (Auto) NEGATIVE, Urine Squamous Epithelial Cells 0, Urine Sperm (Auto) 08/17/19 04:28: Prothrombin Time 14.1H, Prothromb Time International Ratio 1.12, Activated Partial Thromboplast Time 32.4, Fibrinogen 426, D-Dimer, Quantitative < 270, Ferritin 53, Lactate Dehydrogenase 158, Total Creatine Kinase 57, Troponin I < 0.02, C-Reactive Protein, Quantitative 4.35H, Immature Granulocyte % (Auto) 0.2, Neutrophils (%) (Auto) 66.9H, Lymphocytes (%) (Auto) 22.3L, Monocytes (%) (Auto) 8.7H, Eosinophils (%) (Auto) 1.6, Basophils (%) (Auto) 0.3, Neutrophils # (Auto) 8.0, Lymphocytes # (Auto) 2.7, Monocytes # (Auto) 1.1H, Eosinophils # (Auto) 0.2, Basophils # (Auto) 0.0, Nucleated Red Blood Cells % (auto) 0.0, Anion Gap 9, Glomerular Filtration Rate > 60.0, Calcium Level 8.5, Magnesium Level 1.8, Total Bilirubin 0.7, Direct Bilirubin 0.2, Aspartate Amino Transf (AST/SGOT) 13, Alanine Aminotransferase (ALT/SGPT) 33, Alkaline Phosphatase 88, Total Protein 7.2, Albumin 3.2, Albumin/Globulin Ratio 0.80L CBC/BMP Laboratory Tests 08/17/19 04:28 Discharge Medications Scheduled Amoxicillin/Potassium Clav (Amox-Clav 875-125 mg Tablet) 1 Each Tablet, 875 MG PO Q12H Ascorbic Acid (Vitamin C) 500 Mg Tablet, 500 MG PO DAILY, (Reported) Cholecalciferol (Vitamin D3) (Vitamin D3) 1,000 Unit Tablet, 1,000 UNITS PO DAILY, (Reported) Melatonin (Melatonin) 3 Mg Tablet, 3 MG PO QHS, (Reported) Paliperidone (Paliperidone ER) 6 Mg Tab.er.24, 6 MG PO QHS for thoughts Paliperidone Palmitate (Invega Sustenna) 234 Mg/1.5 Ml Syringe, 234 MG IM QMONTH, (Reported) Allergies Coded Allergies: No Known Drug Allergies (Verified Allergy, Unknown, 10/13/18) ARMIDA MCCABE MD Aug 17, 2019 15:37
[2019-08-19 14:11] LABS: BODY FLUID CULTURE Not indicated. (.); LEGIONELLA ANTIGEN URINE Negative (Negative); ORGANISM ID Not indicated. (.); SPECIMEN SOURCE Urine (.); URINE STREP PNEUMONIAE ANTIGEN Negative (Negative)
== END 2019-08-17 10:53 | disposition home or self-care (01) ==
LOC: M ICU 14:55
PROVIDERS: ADMIT Internal Medicine; ATTEND Internal Medicine
DX: R50.9 Fever, unspecified (principal); E87.2 Acidosis; R79.89 Other specified abnormal findings of blood chemistry; J45.909 Unspecified asthma, uncomplicated; F41.9 Anxiety disorder, unspecified; F32.9 Major depressive disorder, single episode, unspecified; D72.829 Elevated white blood cell count, unspecified; I45.10 Unspecified right bundle-branch block; Z79.899 Other long term (current) drug therapy; Z79.2 Long term (current) use of antibiotics
CPT/HCPCS: 36415; 80048; 80076; 81001; 82550; 82553; 82728; 83605; 83615; 83735; 83880; 84145; 84478; 85025; 85379; 85384; 85610; 85730; 86140; 87389; 87449; 87899; 93005; 96360; 96361; 96372; J1644

== ENCOUNTER 2019-12-15 23:42 | Inpatient (IN) | payer MEDICAID, OTHER ==
[~2019-12-15 23:42] MED LIST changes: +AMOX875T2 PO; +D31000TA2 PO; +MELA3TAB30 PO; -MELA3TAB62 PO; -VITAD1000T PO
[2019-12-16] MEDS ORDERED: traZODone 50 MG TAB ONE (20:59)
[2019-12-16] MEDS ORDERED: traZODone 50 MG TAB As Ordered ONE (20:59)
[2019-12-16] MEDS ORDERED: SERTRALINE HCL 50 MG TAB As Ordered ONE (20:59)
[2019-12-16] MEDS ORDERED: SERTRALINE HCL 50 MG TAB ONE (20:59)
[2019-12-17] MEDS ORDERED: SERTRALINE HCL 50 MG TAB As Ordered ONE (20:33)
[2019-12-17] MEDS ORDERED: traZODone 50 MG TAB ONE (20:33)
[2019-12-17] MEDS ORDERED: SERTRALINE HCL 50 MG TAB ONE (20:33)
[2019-12-17] MEDS ORDERED: traZODone 50 MG TAB As Ordered ONE (20:33)
[2020-01-30 07:49] LABS: HEMATOCRIT 42.8 % (42.0-52.0); HEMOGLOBIN 15.1 g/dl (13.5-17.5); MEAN CORPUSCULAR HEMOGLOBIN 28.1 pg (27.0-33.0); MEAN CORPUSCULAR HGB CONC 35.3 g/dl (32.0-36.5); MEAN CORPUSCULAR VOLUME 79.7 fl (80.0-96.0); PLATELET COUNT, AUTOMATED 368 10^3/uL (150-450); RED BLOOD COUNT 5.37 10^6/uL (4.30-6.10); WHITE BLOOD COUNT 10.7 10^3/uL (4.0-10.0)
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
[2020-03-04 10:26] LABS: AMPHETAMINES LEVEL URINE NEGATIVE (NEGATIVE); BARBITURATES URINE NEGATIVE (NEGATIVE); BENZODIAZEPINES URINE NEGATIVE (NEGATIVE); CANNABINOIDS URINE NEGATIVE (NEGATIVE); COCAINE METABOLITE URINE NEGATIVE (NEGATIVE); METHADONE URINE NEGATIVE (NEGATIVE); OPIATES URINE NEGATIVE (NEGATIVE); PHENCYCLIDINE URINE NEGATIVE (NEGATIVE)
[2020-03-04 10:27] LABS: ACETAMINOPHEN LEVEL < 2.0 UG/ML (10.0-30.0); BLOOD UREA NITROGEN 9 MG/DL (7-18); CALCIUM LEVEL 9.1 MG/DL (8.5-10.1); CARBON DIOXIDE LEVEL 29 MEQ/L (21-32); CHLORIDE LEVEL 107 MEQ/L (98-107); CREATININE FOR GFR 0.95 MG/DL (0.70-1.30); ETHYL ALCOHOL (ETHANOL) 0.006 % (0.000-0.010); GLOMERULAR FILTRATION RATE > 60.0 (>60); GLUCOSE, FASTING 113 MG/DL (70-100); POTASSIUM SERUM 3.9 MEQ/L (3.5-5.1); SALICYLATE LEVEL < 1.7 MG/DL (5.0-30.0); SODIUM LEVEL 142 MEQ/L (136-145)
== END 2019-12-18 12:30 | disposition home or self-care (01) | DRG 753 ==
LOC: M ED 23:42 → M PSY 12-16 03:00
PROVIDERS: ADMIT Psychiatry & Neurology Psychiatry; ATTEND Psychiatry & Neurology Psychiatry
DX: F39 Unspecified mood [affective] disorder (principal); F79 Unspecified intellectual disabilities; F20.9 Schizophrenia, unspecified

== ENCOUNTER 2020-05-31 17:21 | Inpatient (IN) | payer MEDICAID, OTHER ==
[~2020-05-31] VITALS: Ht 185.4 cm; Wt 108.8 kg
[2020-05-31 18:50] LABS: HEMOGLOBIN 14.9 g/dl (13.5-17.5); MEAN CORPUSCULAR HEMOGLOBIN 26.8 pg (27.0-33.0); MEAN CORPUSCULAR HGB CONC 33.9 g/dl (32.0-36.5); MEAN CORPUSCULAR VOLUME 79.3 fl (80.0-96.0); PLATELET COUNT, AUTOMATED 385 10^3/uL (150-450); RED BLOOD COUNT 5.55 10^6/uL (4.30-6.10)
[2020-05-31] MEDS ORDERED: ZOLO50TA (19:02)
[2020-05-31 19:09] LABS: AMPHETAMINES LEVEL URINE NEGATIVE (NEGATIVE); BARBITURATES URINE NEGATIVE (NEGATIVE); BENZODIAZEPINES URINE NEGATIVE (NEGATIVE); CANNABINOIDS URINE NEGATIVE (NEGATIVE); COCAINE METABOLITE URINE NEGATIVE (NEGATIVE); METHADONE URINE NEGATIVE (NEGATIVE); OPIATES URINE NEGATIVE (NEGATIVE); PHENCYCLIDINE URINE NEGATIVE (NEGATIVE)
[2020-05-31 19:24] LABS: ACETAMINOPHEN LEVEL < 2.0 UG/ML (10.0-30.0); ALBUMIN 4.1 GM/DL (3.2-5.2); ALT/SGPT 50 U/L (12-78); BILIRUBIN,DIRECT 0.1 MG/DL (0.0-0.2); BILIRUBIN,TOTAL 0.2 MG/DL (0.2-1.0); BLOOD UREA NITROGEN 11 MG/DL (7-18); CALCIUM LEVEL 10.2 MG/DL (8.5-10.1); CARBON DIOXIDE LEVEL 28 MEQ/L (21-32); CHLORIDE LEVEL 105 MEQ/L (98-107); CREATININE FOR GFR 0.91 MG/DL (0.70-1.30); ETHYL ALCOHOL (ETHANOL) < 0.003 % (0.000-0.010); GLOMERULAR FILTRATION RATE > 60.0 (>60); GLUCOSE, FASTING 107 MG/DL (70-100); POTASSIUM SERUM 3.7 MEQ/L (3.5-5.1); SALICYLATE LEVEL < 1.7 MG/DL (5.0-30.0); SODIUM LEVEL 138 MEQ/L (136-145); TOTAL PROTEIN 8.8 GM/DL (6.4-8.2)
[2020-05-31] MEDS ORDERED: VITAMIN D 1,000 INTERNATIONAL UNITS TABLET PO ONE (20:45)
--- OUTSIDE RECORDS SUMMARY | 2020-05-31 21:11 | CCD ---
Author Author [facility] Organization [facility] Address Unknown Phone Unavailable Care Team Providers Care Dancing Master Name Role Phone Marilee Lai Unavailable PROBLEMS Type Condition ICD9-CM Code [id number] Code Onset Dates Condition S tatus SNOMED Code Notes Problem Body mass index [BMI] 33.0-33.9, adult Z68.33 A ctive [id number] Problem Other obesity due to excess calories E66.09 Act bertin [id number] Problem Environmental allergies Z91.09 Active [id number] Problem 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 1 [id number] ALLERGIES No Known Allergies ENCOUNTERS from 1997 to 2020-05-16 Encounter Location Date Provider Diagnosis [address] [address] May, Marilee Lai Annual physical exam Z00.00 ; Undifferen tiated schizophrenia F20.3 ; Environmental allergies Z91.09 ; Other obesity due to excess calories E66.09 ; Body mass index [BMI] 33.0-33.9, adult Z68.33 ; Screening for hyperlipidemia Z13.220 and Screening for diabetes mellitus Z13.1 IMMUNIZATIONS No Information SOCIAL HISTORY Tobacco Use: Social History Observation Description Date Details (start date - stop date) Never Smoker Sex Assigned At : Social History Observation Description Sex Assigned At Unknown Education: Question Answer Notes Level of Education: College Audit Question Answer Notes Total Score: 0 Interpretation: Alcohol Education Language: Question Answer Notes Languages spoken: Beninese Rastafari: Question Answer Notes Rastafari 33 None Domestic Violence: Question Answer Notes Status: Single Sexual Hx: Question Answer Notes Had sex in the last 12 months (vaginal, oral, or anal)? No Have you ever had an STD? No Drug and Alcohol Question Answer Notes Total Score: 0 Interpretation: No problems reported Alcohol Screening: Question Answer Notes Did you have a drink containing alcohol in the past year? No Points 0 Interpretation Negative Tobacco Use: Question Answer Notes Are you a: never smoker REASON FOR REFERRAL No Information VITAL SIGNS Weight 230 lbs May, Height 70 in May, BMI 33.00 kg/m2 May, Heart Rate 106 /min May, Respiratory Rate 20 /min May, Temperature 97.7 degrees Fahrenheit May, Oximetry 96 May, Blood pressure systolic 122 mm Hg May, Blood pressure diastolic 78 mm Hg May, MEDICATIONS Medication SIG (Take, Route, Frequency, Duration) Notes Start Da te End Date Status Sertraline HCl 50 MG 1 tablet Orally Once a day for 30 day(s) Active Claritin 10 MG 1 tablet Orally Once a day as needed Not-Taking Melatonin 3 MG 1 tablet at bedtime as needed Orally Once a day for 30 day(s) Active Acetaminophen 500 MG 1 capsule as needed Orally every 6 hrs Active Fluticasone Propionate 50 MCG/ACT 1 spray in each nostril Nasall y Once a day May, Not-Taking HydrOXYzine HCl 10 MG 1 tablet as needed Orally every 8 hrs Active Invega Sustenna 234 MG/1.5ML 1.5 ml Intramuscular monthly Active Paliperidone ER 6 MG 1 tablet in the morning Orally Once a day Not-Taking ProAir HFA 108 (90 Base) MCG/ACT 2 puff as needed Inhalation ese ry 6 hrs May, Active PROCEDURES No Information RESULTS No Results REASON FOR VISIT Annual MEDICAL (GENERAL) HISTORY Type Description Date Medical History Undifferentiated schizophrenia - Dr. Candelario mtz Medical History Environmental allergies Medical History Anxiety Surgical History double hernia repair 1999 Hospitalization History surgery related Hospitalization History [facility] stay for a week 09/11/2018 Hospitalization History [facility] for 6 days 07/2019 Goals Section No Information Health Concerns No Information MEDICAL EQUIPMENT No Information MENTAL STATUS No Information FUNCTIONAL STATUS No Information ASSESSMENTS Encounter Date Diagnosis Assessment Notes Treatment Notes Treatm ent Clinical Notes May, Annual physical exam (ICD-10 - Z00.00) Medical, surgical, and family histories were reviewed and updated. See preventative section. I recommended he schedule an appointment with his dentist. May, Undifferentiated schizophrenia (ICD-10 - F20.3) Following with [facility]; feels his mood is doing well on current medication. May, Environmental allergies (ICD-10 - Z91.09) Denies recent symptoms. May, Other obesity due to excess calories (ICD-10 - E 66.09) Has had a 34 lb weight gain since starting Invega; I recommended regular exercise and dietary changes to control weight. Screen for diabetes and HLD. May, Body mass index [BMI] 33.0-33.9, adult (ICD-10 - Z68.33) May, Screening for hyperlipidemia (ICD-10 - Z13.220) May, Screening for diabetes mellitus (ICD-10 - Z13.1) PLAN OF TREATMENT Treatment Notes Assessment Notes Clinical Notes Annual physical exam Medical, surgical, and family histories were reviewed and updated. See preventative section. I recommended he schedule an appointment with his dentist. Undifferentiated schizophrenia Following with [facility]; feels his mood is doing well on current medication. Environmental allergies Denies recent sy mptoms. Other obesity due to excess calories Has had a 34 lb weight gain since starting Invega; I recommended regular exercise and dietary changes to control weight. Screen for diabetes and HLD. Future Test Test Name Order Date LIPID PANEL (CARDIAC RISK) 20200513 Comprehensive Metabolic Profile (CMP) 20200513 Next Appt Details 1 year; 30 min Reason:Annual Provider Name:Marilee Lai, 2021-05-17 01:00:00 PM, [address] [place], [id number], Follow Up:1 year; 30 minAnnual Insurance Providers Payer Name Payer Address Payer Phone Insured Name Patient Relati onship to Insured Coverage Start Date Coverage End Date [facility] [employer] [facility] [address] [facility] [id number] ELLYN LOZANO self
--- OUTSIDE RECORDS SUMMARY | 2020-05-31 21:14 | CCD ---
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 If such information is present, then the following federally mandated warning applies: This information has been disclosed to you from records protected by federal confidentiality rules (42 CFR part 2). The federal rules prohibit you from making any further disclosure of this information unless further disclosure is expressly permitted by the written consent of the person to whom it pertains or as otherwise permitted by 42 CFR part 2. A general authorization for the release of medical or other information is NOT sufficient for this purpose. The Federal rules restrict any use of the information to criminally investigate or prosecute any alcohol or drug abuse patient.The records that you are about to access may contain highly sensitive health information, the redisclosure of which is protected by Article 27-F of the [facility] Public Health law. If you continue you may have access to information: Regarding HIV / AIDS; Provided by facilities licensed or operated by the [facility] Office of Mental Health; or Provided by the [facility] Office for People With Developmental Disabilities. If such information is present, then the following [facility] mandated warning applies: This information has been disclosed to you from confidential records which are protected by state law. State law prohibits you from making any further disclosure of this information without the specific written consent of the person to whom it pertains, or as otherwise permitted by law. Any unauthorized further disclosure in violation of state law may result in a fine or shelter sentence or both. A general authorization for the release of medical or other information is NOT sufficient authorization for further disc losure. Encounters Encounter Providers Location Date Indications Data Source(s ) Outpatient [address] [place] [address] [place] [address] 05/13/2020 12:00:00 AM EST eCW1 ([facility]) [facility] 10/06/2019 12:02:23 AM EDT [address] [address] 08/21/2019 12:00:00 AM EDT eCW1 ([facility]) [address] [place] [address] 07/10/2019 12:00:00 AM EST eCW1 ([facility]) [address] [place] [address] 07/03/2019 12:00:00 AM EST eCW1 ([facility]) [address] [address] 05/14/2019 12:00:00 AM EST eCW1 ([facility]) [address] [place] [address] 05/14/2019 12:00:00 AM EST eCW1 ([facility]) Medications Medication Brand Name Start Date Product Form Dose Route Admi nistrative Instructions Pharmacy Instructions Status Indications Reaction Description Data Source(s) 234 mg/1.5 mL 05/27/2020 12:00:00 AM EST syringe 1 INJECT 234MG INTRAMUSCULARLY EVERY 4 WEEKS INJECT 234MG INTRAMUSCULARLY EVERY 4 WEEKS SOLD: 05/27/2020 [facility] 50 mg 05/08/2020 12:00:00 AM EST tablet 45 TAKE 1 & 1/2 TABLETS BY MOUTH ONCE DAILY DIRECTED TAKE 1 & 1/2 TABLETS BY MOUTH ONCE DAILY DIRECTED SOLD: 05/08/2020 [facility] 234 mg/1.5 mL 04/28/2020 12:00:00 AM EST syringe 1 INJECT INTRAMUSCULARLY ONCE EVERY 4 WEEKS INJECT INTRAMUSCULARLY ONCE EVERY 4 WEEKS SOLD: 04/30/2020 [facility] 234 mg/1.5 mL 04/04/2020 12:00:00 AM EST syringe 1 INJECT INTRAMUSCULARLY ONCE EVERY 4 WEEKS INJECT INTRAMUSCULARLY ONCE EVERY 4 WEEKS SOLD: 04/04/2020 [facility] 50 mg 03/21/2020 12:00:00 AM EST tablet 45 TAKE ONE AND ONE-HALF TABLETS BY MOUTH EVERY DAY DIRECTED TAKE ONE AND ONE-HALF TABLETS BY MOUTH E VERY DAY DIRECTED SOLD: 03/24/2020 [facility] 234 mg/1.5 mL 02/27/2020 12:00:00 AM EDT syringe 1 INJECT 234MG INTRAMUSCULARLY ONCE MONTHLY INJECT 234MG INTRAMUSCULARLY ONCE MONTHLY SOLD: 03/03/2020 [facility] 50 mg 02/04/2020 12:00:00 AM EDT tablet 45 TAKE 1 & 1/2 TABLETS BY MOUTH ONCE DAILY DIRECTED TAKE 1 & 1/2 TABLETS BY MOUTH ONCE DAILY DIRECTED SOLD: 02/05/2020 [facility] 50 mg 01/07/2020 12:00:00 AM EDT tablet 30 TAKE ONE TABLET BY MOUTH EVERY DAY TAKE ONE TABLET BY MOUTH EVERY DAY SOLD: 01/08/2020 [facility] 50 mg 12/18/2019 12:00:00 AM EDT tablet 7 TAKE ONE TABLET BY MOUTH DAILY TAKE ONE TABLET BY MOUTH DAILY SOLD: 12/18/2019 [facility] 50 mg 12/18/2019 12:00:00 AM EDT tablet 7 TAKE ONE TABLET BY MOUTH DAILY TAKE ONE TABLET BY MOUTH DAILY SOLD: 01/01/2020 [facility] 50 mg 12/18/2019 12:00:00 AM EDT tablet 7 TAKE ONE TABLET BY MOUTH DAILY TAKE ONE TABLET BY MOUTH DAILY SOLD: 12/25/2019 [facility] 234 mg/1.5 mL 12/08/2019 12:00:00 AM EDT syringe 1 INJECT INTRAMUSCULARLY ONCE EVERY MONTH INJECT INTRAMUSCULARLY ONCE EVERY MONTH SOLD: 12/08/2019 [facility] 234 mg/1.5 mL 12/08/2019 12:00:00 AM EDT syringe 1 INJECT INTRAMUSCULARLY ONCE EVERY MONTH INJECT INTRAMUSCULARLY ONCE EVERY MONTH SOLD: 02/02/2020 [facility] 234 mg/1.5 mL 12/08/2019 12:00:00 AM EDT syringe 1 INJECT INTRAMUSCULARLY ONCE EVERY MONTH INJECT INTRAMUSCULARLY ONCE EVERY MONTH SOLD: 01/05/2020 [facility] 234 mg/1.5 mL 10/15/2019 12:00:00 AM EDT syringe 1 INJECT 1 SYRINGE INTRAMUSCULARLY ONCE MONTHLY INJECT 1 SYRINGE INTRAMUSCULARLY ONCE MONTHLY SOLD: 11/11/2019 [facility] 234 mg/1.5 mL 10/15/2019 12:00:00 AM EDT syringe 1 INJECT 1 SYRINGE INTRAMUSCULARLY ONCE MONTHLY INJECT 1 SYRINGE INTRAMUSCULARLY ONCE MONTHLY SOLD: 10/15/2019 [facility] 3 mg 10/13/2019 12:00:00 AM EDT tablet extended release 24hr 7 TAKE ONE TABLET BY MOUTH EVERY OTHER DAY FOR 2 WEEKS THEN STOP TAKE ONE TABLET BY MOUTH EVERY OTHER DAY FOR 2 WEEKS THEN STOP SOLD: 10/15/2019 [facility] 234 mg/1.5 mL 09/16/2019 12:00:00 AM EDT syringe 1 INJECT INTRAMUSCULARLY ONCE MONTHLY INJECT INTRAMUSCULARLY ONCE MONTHLY SOLD: 09/17/2019 [facility] 3 mg 09/14/2019 12:00:00 AM EDT tablet extended release 24hr 7 TAKE ONE TABLET BY MOUTH EVERY DAY TAKE ONE TABLET BY MOUTH EVERY DAY SOLD: 09/14/2019 [facility] 10 mg 08/22/2019 12:00:00 AM EDT tablet 20 TAKE ONE TABLET BY MOUTH TWO TIMES A DAY NEEDED FOR ANXIETY TAKE ONE TABLET BY MOUTH TWO TIMES A DAY NEEDED FOR ANXIETY SOLD: 08/26/2019 [facility] 234 mg/1.5 mL 08/20/2019 12:00:00 AM EDT syringe 1 INJECT 1 SYRINGE INTRAMUSCULAR ONCE A MONTH INJECT 1 SYRINGE INTRAMUSCULAR ONCE A MONTH SOLD: 08/20/2019 [facility] 6 mg 08/19/2019 12:00:00 AM EDT tablet extended release 24hr 7 TAKE ONE TABLET BY MOUTH AT BEDTIME FOR THOUGHTS TAKE ONE TABLET BY MOUTH AT BEDTIME FOR THOUGHTS SOLD: 08/20/2019 [facility] 6 mg 08/19/2019 12:00:00 AM EDT tablet extended release 24hr 7 TAKE ONE TABLET BY MOUTH AT BEDTIME FOR THOUGHTS TAKE ONE TABLET BY MOUTH AT BEDTIME FOR THOUGHTS SOLD: 09/11/2019 [facility] 6 mg 08/19/2019 12:00:00 AM EDT tablet extended release 24hr 7 TAKE ONE TABLET BY MOUTH AT BEDTIME FOR THOUGHTS TAKE ONE TABLET BY MOUTH AT BEDTIME FOR THOUGHTS SOLD: 09/02/2019 [facility] 875-125 mg 08/17/2019 12:00:00 AM EDT tablet 8 TAKE ONE TABLET BY MOUTH EVERY 12 HOURS TAKE ONE TABLET BY MOUTH EVERY 12 HOURS SOLD: 08/17/2019 [facility] 234 mg/1.5 mL 07/23/2019 12:00:00 AM EDT syringe 1 INJECT CONTENTS OF 1 SYRINGE ONCE A MONTH INJECT CONTENTS OF 1 SYRINGE ONCE A MONTH SOLD: 07/23/2019 [facility] 234 mg/1.5 mL 06/24/2019 12:00:00 AM EST syringe 1 INJECT ONE SYRINGE INTRAMUSCULARLY ONCE A MONTH INJECT ONE SYRINGE INTRAMUSCULARLY ONCE A MONTH SOLD: 06/24/2019 [facility] 234 mg/1.5 mL 05/28/2019 12:00:00 AM EST syringe 1 INJECT 1 SYRINGE ONCE A MONTH INJECT 1 SYRINGE ONCE A MONTH SOLD: 05/29/2019 [facility] 50 mcg/actuation 05/15/2019 12:00:00 AM EST spray,suspension 16 SPRAY ONE SPRAY IN EACH NOSTRIL EVERY DAY ( THIS WILL LAST 60 DAYS ) SPRAY ONE SPRAY IN EACH NOSTRIL EVERY DAY ( THIS WILL LAST 60 DAYS ) SOLD: 05/18/2019 [facility] 90 mcg/actuation 05/15/2019 12:00:00 AM EST HFA aerosol inha ler 18 INHALE 2 PUFFS BY MOUTH EVERY 6 HOURS NEEDED INHALE 2 PUFFS BY MOUTH EVERY 6 HOURS NEEDED SOLD: 05/18/2019 [facility] 200 ACTUAT Albuterol 0.09 MG/ACTUAT Mete red Dose Inhaler [ProAir] ProAir HFA 108 (90 Base) MCG/ACT ProAir HFA 108 (90 Base) MCG/ACT 05/14/2019 12:00:00 AM EST active 2 puff as needed [facility] 200 ACTUAT Albuterol 0.09 MG/ACTUAT Mete red Dose Inhaler [ProAir] ProAir HFA 108 (90 Base) MCG/ACT ProAir HFA 108 (90 Base) MCG/ACT 05/14/2019 12:00:00 AM EST active 2 puff as needed [facility]) Fluticasone Propionate 50 MCG/ACT Fluticasone Propionate 50 MCG/ACT 05/14/2019 12:00:00 AM EST 1.0 {spray_in_each_nostril} susp ended Fluticasone Propionate 50 MCG/ACT eCW[facility]) 200 ACTUAT Albuterol 0.09 MG/ACTUAT Mete red Dose Inhaler [ProAir] ProAir HFA 108 (90 Base) MCG/ACT ProAir HFA 108 (90 Base) MCG/ACT 05/14/2019 12:00:00 AM EST 2.0 {puff_as_needed} active Pro Air HFA 108 (90 Base) MCG/ACT eCW[facility]) Fluticasone Propionate 50 MCG/ACT Fluticasone Propionate 50 MCG/ACT 05/14/2019 12:00:00 AM EST active 1 spray in each nostril eCW1 ([facility]) Fluticasone Propionate 50 MCG/ACT Fluticasone Propionate 50 MCG/ACT 05/14/2019 12:00:00 AM EST suspended 1 spr ay in each nostril eCW1 ([facility]) 200 ACTUAT Albuterol 0.09 MG/ACTUAT Mete red Dose Inhaler [ProAir] ProAir HFA 108 (90 Base) MCG/ACT ProAir HFA 108 (90 Base) MCG/ACT 05/14/2019 12:00:00 AM EST active 2 puff as needed eCW1 ([facility]) Fluticasone Propionate 50 MCG/ACT Fluticasone Propionate 50 MCG/ACT 05/14/2019 12:00:00 AM EST active 1 spray in each nostril eCW1 ([facility]) 234 mg/1.5 mL 05/01/2019 12:00:00 AM EST syringe 1 USE 1 SYRINGE ONCE A MONTH USE 1 SYRINGE ONCE A MONTH SOLD: 05/02/2019 [facility] 234 mg/1.5 mL 04/04/2019 12:00:00 AM EST syringe 1 INJECT 1 SYRINGE ONCE MONTHLY INJECT 1 SYRINGE ONCE MONTHLY SOLD: 04/05/2019 [facility] Insurance Providers Payer name Policy type / Coverage type Policy ID Covered republican ID Covered republican's relationship to 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 Plan Information [facility] [id number] SP [id number] UN COMMUNITY PLAN [facility] [id number] SP [id number] UN COMMUNITY PLAN [facility] [id number] SP [id number] Managed Care [facility] P [id number] S [id number] Medicaid S UNAVAILABLE S UNAVAILA BLE UN COMMUNITY PLAN MCDO [id number] SP [id number] ANSI-Medicaid [id number] Managed Care [facility] P [id number] S [id number] [facility] COMMUNITY PLAN [facility] [id number] SP [id number] [facility] [id number] SP [id number] D Managed Care [facility] P [id number] S [id number] ANSI-Medicaid [id number] MEDICAID [id number] SP [id number] Problems, Conditions, and Diagnoses Code Display Name Description Problem Type Effective Dates Data Source(s) E66.09 073927606 Other obesity due to excess calories Prob dominga 05/13/2020 12:00:00 AM EST [facility]) Z68.33 [id number] Body mass index [BMI] 33.0-33.9, adult Pr oblem 05/13/2020 12:00:00 AM EST eCW1 ([facility]) Results ID Date Data Source [id number] 08/15/2019 07:15:00 PM EDT [facility] Name Value Range Interpretation Code Description Data Roro rce(s) Supporting Document(s) SARS CORONAVIRUS 2 RNA [facility] This lab was ordered by [facility] and reported by [facility]. Procedure Social History Code Duration Value Status Description Data Source(s ) Smoking 05/13/2020 12:00:00 AM EST Never Smoker completed Never S moker eCW1 ([facility]) Vital Signs ID Date Data Source UNK Name Value Range Interpretation Code Description Data Source(s) Diastolic blood pressure 78 mm[Hg] 78 mm[Hg] eCW1 ([facility]) Systolic blood pressure 122 mm[Hg] 122 mm[Hg] e CW1 ([facility]) Body temperature 97.7 [degF] 97.7 [degF] [facility]) Respiratory rate 20 /min 20 /min eCW1 ([facility]) Heart rate 106 /min 106 /min eCW1 ([facility]) Body mass index (BMI) [Ratio] 33.00 kg/m2 33.00 kg/m2 eCW1 [facility]) Body height 70 [in_i] 70 [in_i] eCW1 ([facility]) Body weight 230 [lb_av] 230 [lb_av] eCW1 ([facility]) Diastolic blood pressure 74 mm[Hg] 74 mm[Hg] eCW1 [facility]) Systolic blood pressure 120 mm[Hg] 120 mm[Hg] e CW1 ([facility]) Body temperature 95.7 [degF] 95.7 [degF] eCW1 ( [facility]) Respiratory rate 20 /min 20 /min eCW1 ([facility]) Heart rate 120 /min 120 /min eCW1 ([facility]) Body mass index (BMI) [Ratio] 28.12 kg/m2 28.12 kg/m2 eCW1 ([facility]) Body height 70 [in_us] 70 [in_us] eCW1 ([facility]) Body weight Measured 196 [lb_av] 196 [lb_av] eC W1 ([facility]) Diastolic blood pressure 70 mm[Hg] 70 mm[Hg] eCW1 ([facility]) Systolic blood pressure 120 mm[Hg] 120 mm[Hg] e CW1 ([facility]) Body temperature 96.3 [degF] 96.3 [degF] eCW1 ( [facility]) Respiratory rate 20 /min 20 /min eCW1 ([facility]) Heart rate 120 /min 120 /min eCW1 ([facility]) Body mass index (BMI) [Ratio] 28.12 kg/m2 28.12 kg/m2 eCW1 ([facility]) Body height 70 [in_us] 70 [in_us] eCW1 ([facility]) Body weight Measured 196 [lb_av] 196 [lb_av] eC W1 ([facility]) Diastolic blood pressure 60 mm[Hg] 60 mm[Hg] eCW1 ([facility]) Systolic blood pressure 110 mm[Hg] 110 mm[Hg] e CW1 ([facility]) Body temperature 98.6 [degF] 98.6 [degF] eCW1 ( [facility]) Respiratory rate 20 /min 20 /min eCW1 ([facility]) Heart rate 111 /min 111 /min eCW1 ([facility]) Body mass index (BMI) [Ratio] 26.40 kg/m2 26.40 kg/m2 eCW1 ([facility]) Body height 70 [in_us] 70 [in_us] eCW1 ([facility]) Body weight Measured 184 [lb_av] 184 [lb_av] eC W1 ([facility]) Patient Treatment Plan of Care Planned Activity Planned Date Details Description Data Source (s) Fluticasone Propionate 50 MCG/ACT 05/14/2019 12:00:00 AM EST eCW1 [facility] 200 ACTUAT Albuterol 0.09 MG/ACTUAT Metered Dose Inhal er [ProAir] 05/14/2019 12:00:00 AM EST eCW1 ([facility]) Fluticasone Propionate 50 MCG/ACT 05/14/2019 12:00:00 AM EST eCW1 [facility] 200 ACTUAT Albuterol 0.09 MG/ACTUAT Metered Dose Inhal er [ProAir] 05/14/2019 12:00:00 AM EST eCW1 ([facility])
[2020-05-31] MEDS ORDERED: HYDR-643 PO (22:33)
[2020-05-31] MEDS ORDERED: D31000TA2 PO (22:33)
[2020-05-31] MEDS ORDERED: SERT50TA29 PO (22:33)
[2020-05-31] MEDS ORDERED: MELA5TAB36 PO (22:33)
[2020-05-31] MEDS ORDERED: MOM 30ML SUSPENSION UDC PO PRN (22:45)
[2020-05-31] MEDS ORDERED: hydrOXYzine 10 MG TAB PO PRN (22:45)
[2020-05-31 23:42] LABS: RSV AMPLIFICATION NEGATIVE (NEGATIVE)
--- OUTSIDE RECORDS SUMMARY | 2020-05-31 23:49 | CCD ---
Author Author [facility] Organization [facility] Address Unknown Phone Unavailable Care Team Providers Care Strike Planning Applications Name Role Phone NIRAJ WAHL Unavailable Unavailable [...] is protected by Article 27-F of the [facility] Public Health law. If you continue you may have access to information: Regarding HIV / AIDS; Provided by facilities licensed or operated by the [facility] Office of Mental Health; or Provided by the [facility] Office for People With Developmental Disabilities. If such information is present, then the following [facility] mandated warning applies: This information has [...] law may result in a fine or penitentiary sentence or both. A general authorization for the release of medical or other information is NOT sufficient authorization for further disc losure. Encounters Encounter Providers Location Date Indications Data Source(s ) Outpatient [address] [place] [address] Y [address] 05/13/2020 12:00:00 AM EST eCW1 ([facility]) [facility] 10/06/2019 12:02:23 AM EDT [address] [address] 08/21/2019 12:00:00 AM EDT eCW1 ([facility]) [address] [place] [address] 07/10/2019 12:00:00 AM EST eCW1 ([facility]) [address] [place] [address] 07/03/2019 12:00:00 AM EST eCW1 ([facility]) [address] [address] 05/14/2019 12:00:00 AM EST eCW1 ([facility]) [address] [place] [address] 05/14/2019 12:00:00 AM EST eCW1 ([facility]) Medications Medication Brand Name Start Date Product [...] EST active 2 puff as needed eCW1 ([facility]) 200 ACTUAT Albuterol 0.09 MG/ACTUAT Mete red Dose Inhaler [ProAir] ProAir HFA 108 (90 Base) MCG/ACT ProAir HFA 108 (90 Base) MCG/ACT 05/14/2019 12:00:00 AM EST active 2 puff as needed eCW1 ([facility]) Fluticasone Propionate 50 MCG/ACT Fluticasone Propionate 50 MCG/ACT 05/14/2019 12:00:00 AM EST 1.0 {spray_in_each_nostril} susp ended Fluticasone Propionate 50 MCG/ACT eCW1 ([facility]) 200 ACTUAT Albuterol 0.09 MG/ACTUAT Mete red Dose Inhaler [ProAir] ProAir HFA 108 (90 Base) MCG/ACT ProAir HFA 108 (90 Base) MCG/ACT 05/14/2019 12:00:00 AM EST 2.0 {puff_as_needed} active Pro Air HFA 108 (90 Base) MCG/ACT eCW1 ([facility]) Fluticasone Propionate 50 MCG/ACT Fluticasone Propionate 50 MCG/ACT 05/14/2019 12:00:00 AM EST active 1 spray in each nostril eCW1 ([facility]) Fluticasone Propionate 50 MCG/ACT Fluticasone Propionate 50 MCG/ACT 05/14/2019 12:00:00 AM EST suspended 1 spr ay in each nostril eCW1 ([facility]) 200 ACTUAT Albuterol 0.09 MG/ACTUAT Mete red Dose Inhaler [ProAir] ProAir HFA 108 (90 Base) MCG/ACT ProAir HFA 108 (90 Base) MCG/ACT 05/14/2019 12:00:00 AM EST active 2 puff as needed eCW1 ([facility]) Fluticasone Propionate 50 MCG/ACT Fluticasone Propionate 50 MCG/ACT 05/14/2019 12:00:00 AM EST active 1 spray in each nostril eCW1 ([facility]) 234 mg/1.5 mL 05/01/2019 12:00:00 AM EST [...] relationship to 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 Plan Information [facility] [id number] SP [id number] UN COMMUNITY PLAN [facility] [id number] SP [id number] UN COMMUNITY PLAN [facility] [id number] SP [id number] Managed Care [facility] P [id number] S [id number] Medicaid S UNAVAILABLE S UNAVAILA BLE UN COMMUNITY PLAN MCDO [id number] SP [id number] ANSI-Medicaid [id number] Managed Care [facility] P [id number] S [id number] [facility] COMMUNITY PLAN [facility] [id number] SP [id number] [facility] [id number] SP [id number] D Managed Care [facility] P [id number] S [id number] ANSI-Medicaid [id number] MEDICAID [id number] SP [id number] Problems, Conditions, and Diagnoses Code Display Name Description Problem Type Effective Dates Data Source(s) E66.09 [id number] Other obesity due to excess calories Prob dominga 05/13/2020 12:00:00 AM EST eCW1 ([facility]) Z68.33 [id number] Body mass index [BMI] 33.0-33.9, adult Pr oblem 05/13/2020 12:00:00 AM EST eCW1 ([facility]) Results ID Date Data Source [id number] 08/15/2019 07:15:00 PM EDT [facility] Name Value Range Interpretation Code Description Data Roro rce(s) Supporting Document(s) SARS CORONAVIRUS 2 RNA [facility] This lab was ordered by [facility] and reported by [facility]. Procedure Social History Code Duration Value Status Description Data Source(s ) Smoking 05/13/2020 12:00:00 AM EST Never Smoker completed Never S moker eCW1 ([facility]) Vital Signs ID Date Data Source UNK Name Value Range Interpretation Code Description Data Source(s) Diastolic blood pressure 78 mm[Hg] 78 mm[Hg] eCW1 ([facility]) Systolic blood pressure 122 mm[Hg] 122 mm[Hg] e CW1 ([facility]) Body temperature 97.7 [degF] 97.7 [degF] eCW1 ( [facility]) Respiratory rate 20 /min 20 /min eCW1 ([facility]) Heart rate 106 /min 106 /min eCW1 ([facility]) Body mass index (BMI) [Ratio] 33.00 kg/m2 33.00 kg/m2 eCW1 ([facility]) Body height 70 [in_i] 70 [in_i] eCW1 ([facility]) Body weight 230 [lb_av] 230 [lb_av] [facility] Diastolic blood pressure 74 mm[Hg] 74 mm[Hg] eCW1 ([facility]) Systolic blood pressure 120 mm[Hg] 120 mm[Hg] e CW1 ([facility]) Body temperature 95.7 [degF] 95.7 [degF] eCW1 ( [facility]) Respiratory rate 20 /min 20 /min eCW1 ([facility]) Heart rate 120 /min 120 /min eCW1 ([facility]) Body mass index (BMI) [Ratio] 28.12 kg/m2 28.12 kg/m2 eCW1 ([facility]) Body height 70 [in_us] 70 [in_us] eCW1 ([facility]) Body weight Measured 196 [lb_av] 196 [lb_av] eC W1 ([facility]) Diastolic blood pressure 70 mm[Hg] 70 mm[Hg] eCW1 ([facility]) Systolic blood pressure 120 mm[Hg] 120 mm[Hg] e CW1 ([facility]) Body temperature 96.3 [degF] 96.3 [degF] eCW1 ( [facility]) Respiratory rate 20 /min 20 /min eCW1 ([facility]) Heart rate 120 /min 120 /min eCW1 ([facility]) Body mass index (BMI) [Ratio] 28.12 kg/m2 28.12 kg/m2 eCW1 ([facility]) Body height 70 [in_us] 70 [in_us] eCW1 ([facility]) Body weight Measured 196 [lb_av] 196 [lb_av] eC W1 ([facility]) Diastolic blood pressure 60 mm[Hg] 60 mm[Hg] eCW1 ([facility]) Systolic blood pressure 110 mm[Hg] 110 mm[Hg] e CW1 ([facility]) Body temperature 98.6 [degF] 98.6 [degF] eCW1 ( [facility]) Respiratory rate 20 /min 20 /min eCW1 ([facility]) Heart rate 111 /min 111 /min eCW1 ([facility]) Body mass index (BMI) [Ratio] 26.40 kg/m2 26.40 kg/m2 eCW1 ([facility]) Body height 70 [in_us] 70 [in_us] eCW1 ([facility]) Body weight Measured 184 [lb_av] 184 [lb_av] eC W1 ([facility]) Patient Treatment Plan of Care Planned Activity Planned Date Details Description Data Source (s) Fluticasone Propionate 50 MCG/ACT 05/14/2019 12:00:00 AM EST eCW1 ([facility]) 200 ACTUAT Albuterol 0.09 MG/ACTUAT Metered Dose Inhal er [ProAir] 05/14/2019 12:00:00 AM EST eCW1 ([facility]) Fluticasone Propionate 50 MCG/ACT 05/14/2019 12:00:00 AM EST eCW1 ([facility]) 200 ACTUAT Albuterol 0.09 MG/ACTUAT Metered Dose Inhal er [ProAir] 05/14/2019 12:00:00 AM EST eCW1 ([facility])
[2020-06-01 00:40] VITALS: BP 136/95
[2020-06-01] MEDS ORDERED: SERTRALINE 100 MG TAB PO SCH (09:00)
[2020-06-01] MEDS ORDERED: hydrOXYzine 50 MG TAB PO PRN (11:30)
[2020-06-01] MEDS ORDERED: SERTRALINE HCL 50 MG TAB PO ONE (11:45)
--- NOTE | 2020-06-01 14:46 | ECGEPIP ---
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
--- NOTE | 2020-06-01 16:16 | HPEPDOC ---
General Date of Admission May 31, 2020 at 22:44 Date of Service: Jun 01, 2020 Chief Complaint The patient is a 24-year-old male admitted with a reason for visit of Schizophrenia. Source: Patient History of Present Illness 24 year old male with PMH of intellectual disabilities, schizophrenia, mood diorsr, anxiety, depression was admitted to [facility] for depression and suicidal thoughts. His Cousin of COVID last week which is the main stressor. Patient's Zoloft was recently increased and patient believes that making him depressed. Caro reported to his father that he was having suicidal thoughts so his father called the [facility] and he was brought to the ED. He is being medically examined today. He does not offer any other complaints. Home Medications Scheduled Cholecalciferol (Vitamin D3) (Vitamin D3) 1,000 Unit Tablet, 1,000 UNITS PO QHS, (Reported) Melatonin (Melatonin) 5 Mg Tablet, 5 MG PO QHS, (Reported) Paliperidone Palmitate (Invega Sustenna) 234 Mg/1.5 Ml Syringe, 234 MG IM QMONTH, (Reported) Sertraline HCl (Sertraline HCl) 50 Mg Tablet, 75 MG PO DAILY, (Reported) Scheduled PRN Hydroxyzine HCl (Hydroxyzine HCl) 10 Mg Tablet, 10 MG PO BID PRN for ANXIETY, (Reported) Allergies Coded Allergies: No Known Drug Allergies (Verified Allergy, Unknown, 10/13/18) Past Medical History Medical History Intellectual disability, Schizophrenia, mood disorder, anxiety, depression, environmental allergies, asthma Surgical History Double hernia repair in 1999 Family History FATHER: ALIVE, FIBROMYALGIA MOTHER: ALIVE, MS, DIAGNOSED WITH HYPERTENSION, DIABETES Uncles and Aunts both maternal and paternal with Diabetes and heart disease Social History * Smoker: non-smoker Alcohol: Denies Drugs: marijuana (Last used more than a year ago) A-FIB/CHADSVASC A-FIB History Current/History of A-Fib/PAF?: No Review of Systems Constitutional: Denies: Chills, Fever, Night Sweats Eyes: Denies: Pain, Vision change ENT: Denies: Head Aches, Ear Pain, Dysphagia Skin: Denies: Rash, Lesions, Breakdown Pulmonary: Denies: Dyspnea, Cough Cardiovascular: Denies: Chest Pain, Palpitations, Orthopnea, Paroxysmal Noc. Dyspnea, Lt Headedness Gastrointestinal: Denies: Nausea, Vomiting, Abdominal Pain, Diarrhea Genitourinary: Denies: Dysuria, Frequency, Incontinence, Retention Hematologic: Denies: Bruising, Bleeding Excessively Musculoskeletal: Denies: Neck Pain, Back Pain, Joint Pain, Muscle Pain, Spasms Neurological: Denies: Weakness, Numbness, Change in speech, Confusion Psych: Reports: Anxiety, Depression, Thoughts of Self Harm; Denies: Memory Issues Physical Examination General Exam: Positive: Alert, No Acute Distress Eye Exam: Positive: PERRLA, Conjunctiva & lids normal, EOMI; Negative: Sclera icteric ENT Exam: Positive: Atraumatic, Mucous membr. moist/pink, Pharynx Normal Neck Exam: Positive: Supple; Negative: JVD, thyromegaly Chest Exam: Positive: Clear to auscultation, Normal air movement Heart Exam: Positive: Rate Normal, Regular Rhythm, Normal S1, Normal S2; Negative: Murmurs, Rubs Telemetry: Positive: No significant arrhythmia Abdomen Exam: Positive: Normal bowel sounds, Soft; Negative: Tenderness, Hepatospenomegaly Extremity Exam: Positive: Normal pulses; Negative: Clubbing, Cyanosis, Edema Skin Exam: Positive: Nl turgor and temperature; Negative: Breakdown, Lesion Neuro Exam: Positive: Normal Gait, Normal Speech, Cranial Nerves 3-12 NL, Reflexes 2+ Psych Exam: Positive: Mental status NL, Mood NL, Oriented x 3 Vital Signs Vital Signs Date Time Temp Pulse Resp B/P (MAP) Pulse Ox O2 Delivery O2 Flow Rate FiO2 06/01/20 00:40 98.4 106 20 136/95 (109) 97 Room Air Laboratory Data Labs 24H Laboratory Tests 2 05/31/20 18:37: Nucleated Red Blood Cells % (auto) 0.0, Anion Gap 5L, Glomerular Filtration Rate > 60.0, Calcium Level 10.2H, Total Bilirubin 0.2, Direct Bilirubin 0.1, Aspartate Amino Transf (AST/SGOT) 18, Alanine Aminotransferase (ALT/SGPT) 50, Alkaline Phosphatase 120H, Total Protein 8.8H, Albumin 4.1, Albumin/Globulin Ratio 0.9, Thyroid Stimulating Hormone (TSH) 1.330, Salicylates Level < 1.7L, Urine Opiates Screen NEGATIVE, Urine Methadone Screen NEGATIVE, Acetaminophen Level < 2.0L, Urine Barbiturates Screen NEGATIVE, Urine Phencyclidine Screen NEGATIVE, Urine Amphetamines Screen NEGATIVE, Urine Benzodiazepines Screen NEGATIVE, Urine Cocaine Metabolite Screen NEGATIVE, Urine Cannabinoids Screen NEGATIVE, Ethyl Alcohol Level < 0.003 05/31/20 22:45: Coronavirus (COVID-19)(PCR) NEGATIVE, Influenza Type A (RT-PCR) NEGATIVE, Influenza Type B (RT-PCR) NEGATIVE, Respiratory Syncytial Virus (PCR) NEGATIVE CBC/BMP Laboratory Tests 05/31/20 18:37 Assessment/Plan 24 year old male with PMH of intellectual disabilities, schizophrenia, mood diorsr, anxiety, depression was admitted to [facility] for depression and suicidal thoughts. His Cousin of COVID last week which is the main stressor. Patient's Zoloft was recently increased and patient believes that making him depressed. Caro reported to his father that he was having suicidal thoughts so his father called the [facility] and he was brought to the ED. He is being medically examined today. Depression/ Schizophrenia As per psychiatry Asthma albuterol prn No active medical issues at this time. Plan / VTE VTE Prophylaxis Ordered?: No (Freely ambulatory) SILVA REY MD Jun 01, 2020 14:12
--- NOTE | 2020-06-01 17:01 | MHHPEPDOC ---
General Date Of Admission: Jun 01, 2020 Legal Status: 9.39 Chief Complaint I told my dad that I didnt feel safe and he brought me to the ER. History of Present Illness Cedrick is a 24 year old male with a history of Schizoaffective disorder, depressed subtype and r/o Intellectual developmental disorder, mild type who was brought into the [facility] ED, and later, admitted to the [facility] after letting his father know that he didnt feel safe. States that he has been compliant with his Invega Sustenna, 234 mg, monthly injection, that he just received as recent as yesterday, but his depressive symptoms have increased in frequency/intensity since COVID began. States that his cousin from COVID, one week ago, and that was his tipping point for feeling very depressed and tearful. He told his father that he didnt feel safe, however, he did not have clear intent or plan on how he would, potentially, hurt himself/end his life. Endorsing anergia, anhedonia, poor concentration, feelings of hopelessness/helplessness with initial and middle insomnia. Also endorsing passive SI but denies any plan. He has one parasuicidal gesture in the past, in which he states in February 2020, he swallowed 1-2 pills of his dads medication. I dont want to ; I just feel really crappy and lonely. Denying any current manic or psychotic sxs. Denies any PTSD sxs. Denies any OCD symptoms. Psychiatric Review of Systems Depression (2 or more weeks): depressed mood, anhedonia, insomnia/hypersomnia, feelings of excess/guilt, feelings of worthlesness, decreased energy, difficulty concentrating, appetite changes, psychomotor changes, suicidal thoughts Sandi (4 or more days of): denies Psychosis: denies PTSD: denies Anxiety: gen/non-specific anxiety Anxiety/ 6 months or more of: sleep disturbance Past Psychiatric History 3 prior inpatient Psychiatric hospitalizations. He has no history of violence and no history of actual suicide attempts. One parasuicidal gesture by aamir lowing 1-2 pills in 02/2020 of his dads medication. He follows up with Dr. Ziegler at [facility] outpatient clinic. Past medication trials are unknown and he cannot elicit that information, when asked. Past Medical History Medical Problems Anemia Family Medical/Psychiatric HX Psychiatric Disorders: No Addiction: No Suicide Attemps/Completions: No Addiction History denies Social History Resides with his parents and 12 year old brother; he graduated from high school but has never been employed; He receives SSI; He is single, no children and denies any history of abuse. Denies any legal history. Denies any substance use. Mental Status Examination General Appearance: unkempt, disheveled, appears stated age, hospital scubs/clothing Build: average, tall Demeanor: withdrawn, guarded Eye Contact: poor Activity: slowed Behavior: resistant, withdrawn Speech: spontaneous, slow, low in volume, impoverished Mood: depressed Affect: constricted Thought Process: depressed, slow Thought Content (Delusions): paranoia Thought Content (Other): autistic, preoccupied, obsessional, guarded, appears paranoid Perception (Hallucinations): none reported Perception (Other): none reported Cognition (Impairment of): attention/concentration, ability to abstract Cognition(Intelligence Est.): borderline Oriented: Awake, Alert, Oriented times three Insight: poor Judgment: Poor Psychosis: Denies Diagnoses Schizoaffective disorder, Depressed type r/o Intellectual developmental disorder, mild type A-FIB/CHADSVASC A-FIB History Current/History of A-Fib/PAF?: No Current PO Anticoag Therapy: No Age/Risk Factor Scoring CHADSVASC: CHADSVASC Response (Comments) Value Age Risk Factor Age < 65 years old 0 Gender Risk Factor Male 0 Hx of CHF No 0 Hx of HTN No 0 Hx of Stroke/TIA/or VTE No 0 Hx of Diabetes No 0 Hx of Vascular Disease No 0 Total 0 Treatment Treatment ordered: NONE Reason Anticoagulant not given: Not indicated/[id number] Assessment Cedrick is a 24 year old male with a history of Schizoaffective disorder, depressed subtype and r/o Intellectual developmental disorder, mild type who was brought into the [facility] ED, and later, admitted to the [facility] after letting his father know that he didnt feel safe. Initial Treatment Plan 1. Patient was admitted on a [9.39] status. 2. Complete history was obtained. 3. With patients permission, family will be contacted and database will be expanded. 4. Patients medication regimen will be reviewed and changed accordingly. 5. Patient will be provided with protected environment. 6. Patient will be treated with individual, group, and milieu therapies. 7. Patient will receive supportive psych-education. 8. Discharge planning will commence immediately. 9. Outpatient follow-up treatment will be strongly recommended. 10. The initial treatment plan will focus initially on: Depression/Psychosis. Risk for suicide. 11. q 15 min checks 12. In terms of psychotropic medication management, he just received Invega Sustenna 234 mg, yesterday, 05/31/20, which he receives monthly. Zoloft was recently started to help with his depressive symptomatology; Increased his Zoloft from 100 mg to 150 mg to help alleviate these symptoms. 13. Strongly encourage both individual and group therapy. 14. He was given extensive psychoeducation in terms of all risks, benefits and alternatives to all treatment modalities and she vocalized understanding. 15. Continue to collaborate with Hospitalist to best optimize his medical comorbidities and his BMI. CBC, CMP, TSH, EKG, lipid panel, urine toxicology all conducted and will follow up. ESTIMATED LENGTH OF STAY: 5-7 DAYS. TIME SPENT COUNSELING AND COORDINATING INITIAL CARE: 120 minutes. Vital Signs Vital Signs Date Time Temp Pulse Resp B/P (MAP) Pulse Ox O2 Delivery O2 Flow Rate FiO2 06/01/20 00:40 98.4 106 20 136/95 (109) 97 Room Air Laboratory Data 24H Labs Laboratory Tests 2 05/31/20 18:37: Nucleated Red Blood Cells % (auto) 0.0, Anion Gap 5L, Glomerular Filtration Rate > 60.0, Calcium Level 10.2H, Total Bilirubin 0.2, Direct Bilirubin 0.1, Aspa rtate Amino Transf (AST/SGOT) 18, Alanine Aminotransferase (ALT/SGPT) 50, Alkaline Phosphatase 120H, Total Protein 8.8H, Albumin 4.1, Albumin/Globulin Ratio 0.9, Thyroid Stimulating Hormone (TSH) 1.330, Salicylates Level < 1.7L, Urine Opiates Screen NEGATIVE, Urine Methadone Screen NEGATIVE, Acetaminophen Level < 2.0L, Urine Barbiturates Screen NEGATIVE, Urine Phencyclidine Screen NEGATIVE, Urine Amphetamines Screen NEGATIVE, Urine Benzodiazepines Screen NEGATIVE, Urine Cocaine Metabolite Screen NEGATIVE, Urine Cannabinoids Screen NEGATIVE, Ethyl Alcohol Level < 0.003 05/31/20 22:45: Coronavirus (COVID-19)(PCR) NEGATIVE, Influenza Type A (RT-PCR) NEGATIVE, Influenza Type B (RT-PCR) NEGATIVE, Respiratory Syncytial Virus (PCR) NEGATIVE CBC/BMP Laboratory Tests 05/31/20 18:37 Medications Scheduled Cholecalciferol (Vitamin D3) (Vitamin D3) 1,000 Unit Tablet, 1,000 UNITS PO QHS, (Reported) Melatonin (Melatonin) 5 Mg Tablet, 5 MG PO QHS, (Reported) Paliperidone Palmitate (Invega Sustenna) 234 Mg/1.5 Ml Syringe, 234 MG IM QMONTH, (Reported) Sertraline HCl (Sertraline HCl) 50 Mg Tablet, 75 MG PO DAILY, (Reported) Scheduled PRN Hydroxyzine HCl (Hydroxyzine HCl) 10 Mg Tablet, 10 MG PO BID PRN for ANXIETY, (Reported) Allergies Coded Allergies: No Known Drug Allergies (Verified Allergy, Unknown, 10/13/18) RAMANDEEP GOMEZ MD Jun 01, 2020 17:01
[2020-06-01 17:47] VITALS: BP 135/80
[2020-06-01] MEDS: VITAMIN D 1,000 INTERNATIONAL UNITS TABLET PO SCH (20:13)
[2020-06-01] MEDS: MAALOX 30 ML SUSP *UDC PO PRN (22:16)
[2020-06-02 06:37] VITALS: BP 136/87
[2020-06-02] MEDS ORDERED: SERTRALINE HCL 50 MG TAB PO SCH (09:00)
--- NOTE | 2020-06-02 13:43 | MHIPNPDOC ---
[facility] Progress Note Progress Note Subjective: Cedrick is a 24 year old male with a history of Schizoaffective disorder, depressed subtype and r/o Intellectual developmental disorder, mild type who was brought into the [facility] ED, and later, admitted to the [facility] after letting his father know that he didnt feel safe. Staff states that he was, for the most part, isolative on the unit, not participating in group activities; He is not engaging with staff or peers; endorsing hopelessness, helplessness, poor energy and initial insomnia. I just feel really crappy. ADLs are poor; he appears internally preoccupied. Objective: He was seen and evaluated, alert and oriented times three, cognition poor, poor hygiene, average body habitus, tall stature; appears stated age, fair eye contact; Speech is decreased in production, slow in rate and soft in volume. Mood: not great, affect: constricted; TP are concrete and disorganized; TC contains depressive themes but he denies any current passive or active suicidal or homicidal ideation, intent or plan. Paranoid ideation is present but denies any delusional themes; Denies AH/VH/TH but appears somewhat internally preoccupied, responding to internal stimuli; insight, impulse control and judgment are poor Diagnosis: Schizoaffective disorder, Depressed type r/o Intellectual developmental disorder, mild type A/P: Cedrick is a 24 year old male with a history of Schizoaffective disorder, depressed subtype and r/o Intellectual developmental disorder, mild type who was brought into the [facility] ED, and later, admitted to the [facility] after letting his father know that he didnt feel safe. 1) Today, increased his Zoloft to 200 mg q am to help alleviate mood and anxiety symptoms 2) Continue to collaborate with treatment team and Hospitalist. 3) Q 15 min checks 4) Collaborate with discharge planners for the safest, most optimal, discharge, upon his clinical stabilization. Likely will be discharged on 06/06/20, with appropriate aftercare in place. 5) Continue to encourage participation with group programming and activities on the unit. Total time spent: 45 minutes Vital Signs Vital Signs Date Time Temp Pulse Resp B/P (MAP) Pulse Ox O2 Delivery O2 Flow Rate FiO2 06/02/20 06:37 97.0 118 16 136/87 (103) 96 Room Air Current Medications Current Medications Medications (Trade) Dose Ordered Sig/Gerson Route PRN Reason Start Time Stop Time Status Last Admin Dose Admin Acetaminophen (Tylenol Tab) 650 mg Q6HP PRN PO HEADACHE or DISCOMFORT 05/31/20 22:45 Al Hydrox/Mg Hydrox/Simethicone (Mylanta) 30 ml Q4HP PRN PO HEARTBURN/INDIGESTION 05/31/20 22:45 06/01/20 22:16 Home Med (Med Rec Complete!) ASDIRECTED XX 05/31/20 22:45 05/31/20 22:35 DC Hydroxyzine HCl (Atarax) 10 mg BID PRN PO ANXIETY 05/31/20 22:45 06/01/20 11:25 DC Hydroxyzine HCl (Atarax) 50 mg BID PRN PO ANXIETY 06/01/20 11:30 Magnesium Hydroxide (Milk Of Magnesia) 30 ml DAILYPRN PRN PO CONSTIPATION 05/31/20 22:45 Sertraline HCl (Zoloft) 100 mg DAILY PO 06/01/20 09:00 06/01/20 11:29 DC 06/01/20 08:10 Sertraline HCl (Zoloft) 150 mg DAILY PO 06/02/20 09:00 06/02/20 11:05 DC 06/02/20 08:08 Sertraline HCl (Zoloft) 200 mg DAILY PO 06/03/20 09:00 Trazodone HCl (Desyrel) 50 mg QHSP PRN PO INSOMNIA 05/31/20 22:45 Vitamin D (Vitamin D) 1,000 units QHS PO 06/01/20 21:00 06/01/20 20:13 Allergies Coded Allergies: No Known Drug Allergies (Verified Allergy, Unknown, 10/13/18) RAMANDEEP GOMEZ MD Jun 02, 2020 13:43
[2020-06-02 16:23] VITALS: BP 125/89
[2020-06-02] MEDS: VITAMIN D 1,000 INTERNATIONAL UNITS TABLET PO SCH (20:06)
[2020-06-03 06:20] VITALS: BP 148/90
[2020-06-03] MEDS: SERTRALINE 100 MG TAB PO SCH (08:12)
[2020-06-03] MEDS: ACETAMINOPHEN TAB 650MG DOSE (2X325MG) PO PRN (12:04)
--- NOTE | 2020-06-03 13:59 | MHIPNPDOC ---
[facility] Progress Note Progress Note DATE OF SERVICE: 06/03/20 HISTORY: Cedrick is a 24 year old male with a history of Schizoaffective disorder, depressed subtype and r/o Intellectual developmental disorder, mild type who was brought into the [facility] ED, and later, admitted to the [facility] after letting his father know that he didnt feel safe. Staff is participating in group activities; He is still mildly withdrawn; denies feeling hopelessness, helplessness, poor energy and initial insomnia. I feel happy. ADLs are poor; he appears internally preoccupied. VITAL SIGNS: See below. CURRENT MEDICATIONS: See below. MENTAL STATUS EXAMINATION: Cedrick is a 24 year old Single, Disabled, male with a history of Schizoaffective disorder, depressed subtype and r/o Intellectual developmental disorder, mild type who was brought into the [facility] ED, and later, admitted to the [facility] after letting his father know that he didnt feel safe (suicidal thinking). He is alert and oriented in the interview, appears his stated age, eye contact is intermittent, no observations of psychomotor agitation or retardation Speech: Is fluid, conversant, normal rate, tone and volume Language skills are intact Thought processes including: fairly linear and at times mildly disorganized Thought content: denies depression and anxiety. Denies suicidal/homicidal ideation, planning or intent. Abstract reasoning, and computation: fair Description of associations: denies, none observed Description of abnormal or psychotic thoughts: denies, observed mildly paranoid Judgment: fair Insight: fair Orientation: alert and oriented to person, place, time and situation Recent and remote memory: intact Attention span and concentration: good Language: expansive Fund of knowledge: average Mood: Euthymic Mood "I am happy" Affect: constricted, congruent, at times blunted DIAGNOSES: Schizoaffective disorder, depressed subtype r/o Intellectual developmental disorder, mild type ASSESSMENT: Patient appears improved from his reported of "not feeling safe." He smiles on approach and reporting that he has no suicidal ideation. States that he is engaged in the milieu, social with peers and attending groups. Staff reporting that he is improving. Denies depression and suicidality. MANAGEMENT PLAN: Continue all treatment modalities and medications as ordered. Patient to be discharged when stable, probable discharge on Tuesday 06/06. TIME SPENT: 35 minutes. Vital Signs Vital Signs Date Time Temp Pulse Resp B/P (MAP) Pulse Ox O2 Delivery O2 Flow Rate FiO2 06/03/20 06:20 98.4 115 16 148/90 (109) 96 Room Air Current Medications Current Medications Medications (Trade) Dose Ordered Sig/Gerson Route PRN Reason Start Time Stop Time Status Last Admin Dose Admin Acetaminophen (Tylenol Tab) 650 mg Q6HP PRN PO HEADACHE or DISCOMFORT 05/31/20 22:45 06/03/20 12:04 Al Hydrox/Mg Hydrox/Simethicone (Mylanta) 30 ml Q4HP PRN PO HEARTBURN/INDIGESTION 05/31/20 22:45 06/01/20 22:16 Home Med (Med Rec Complete!) ASDIRECTED XX 05/31/20 22:45 05/31/20 22:35 DC Hydroxyzine HCl (Atarax) 10 mg BID PRN PO ANXIETY 05/31/20 22:45 06/01/20 11:25 DC Hydroxyzine HCl (Atarax) 50 mg BID PRN PO ANXIETY 06/01/20 11:30 Magnesium Hydroxide (Milk Of Magnesia) 30 ml DAILYPRN PRN PO CONSTIPATION 05/31/20 22:45 Sertraline HCl (Zoloft) 100 mg DAILY PO 06/01/20 09:00 06/01/20 11:29 DC 06/01/20 08:10 Sertraline HCl (Zoloft) 150 mg DAILY PO 06/02/20 09:00 06/02/20 11:05 DC 06/02/20 08:08 Sertraline HCl (Zoloft) 200 mg DAILY PO 06/03/20 09:00 06/03/20 08:12 Trazodone HCl (Desyrel) 50 mg QHSP PRN PO INSOMNIA 05/31/20 22:45 Vitamin D (Vitamin D) 1,000 units QHS PO 06/01/20 21:00 06/02/20 20:06 Allergies Coded Allergies: No Known Drug Allergies (Verified Allergy, Unknown, 10/13/18) RENEE PAREDES NP Jun 03, 2020 12:44
[2020-06-03 19:34] VITALS: BP 135/86
[2020-06-03] MEDS: VITAMIN D 1,000 INTERNATIONAL UNITS TABLET PO SCH (20:07)
[2020-06-03] MEDS: traZODone 50 MG TAB PO PRN (21:13)
[2020-06-04] MEDS: ACETAMINOPHEN TAB 650MG DOSE (2X325MG) PO PRN (04:42)
[2020-06-04 06:49] VITALS: BP 153/87
[2020-06-04] MEDS: SERTRALINE 100 MG TAB PO SCH (08:06)
[2020-06-04] MEDS: MAALOX 30 ML SUSP *UDC PO PRN (15:47)
--- NOTE | 2020-06-04 17:43 | MHIPNPDOC ---
[facility] Progress Note Progress Note DATE OF SERVICE: 06/04/20-----The patient was evAluated using ZOOM due to coronavirus pandemic HISTORY: Cedrick is a 24 year old male with a history of Schizoaffec tive disorder, depressed subtype and r/o Intellectual developmental disorder, mild type who was brought into the [facility] ED, and later, admitted to the [facility] after letting his father know that he didnt feel safe. Staff is participating in group activities; He is still mildly withdrawn; denies feeling hopelessness, helplessness, poor energy and initial insomnia. I feel happy. ADLs are poor; he appears internally preoccupied. VITAL SIGNS: See below. CURRENT MEDICATIONS: See below. MENTAL STATUS EXAMINATION: Cedrick is a 24 year old Single, Disabled, male with a history of Schizoaffective disorder, depressed subtype and r/o Intellectual developmental disorder, mild type who was brought into the [facility] ED, and later, admitted to the [facility] after letting his father know that he didnt feel safe (suicidal thinking). Cedrick was dressed in hospital clothes, was mildly disheveled, was cooperative with the interview. Speech: Is fluid, normal in r/t/v Language skills are intact Thought processes including: linear at this time Thought content: Denies anxious/depressed thoughts, denies SI/HI at this time. Abstract reasoning, and computation: fair Description of associations: not loose at this time Description of abnormal or psychotic thoughts: Denies, but he was a little bit guarded, mistrustful Judgment: fair Insight: fair Orientation: alert and oriented to person, place, date and time Recent and remote memory: intact Attention span and concentration: good Language: sparse, needed prompting Fund of knowledge: average Mood: Euthymic Affect: constricted, congruent, at times blunted DIAGNOSES: Schizoaffective disorder, depressed subtype r/o Intellectual developmental disorder, mild type ASSESSMENT: The patient is looking forward to being discharged. He says he would go to his parents home, with whom he lives. He reports that they are very supportive. He is not suiidal, not homicidal, not dangerous to self or aothrs at this time but his affect is constricted/blunted and he still is a little bit paranoid/guarded. MANAGEMENT PLAN: Continue with current treatment plan TIME SPENT: 20 minutes Vital Signs Vital Signs Date Time Temp Pulse Resp B/P (MAP) Pulse Ox O2 Delivery O2 Flow Rate FiO2 06/04/20 09:30 Room Air 06/04/20 06:49 99.2 91 16 153/87 (109) 94 Current Medications Current Medications Medications (Trade) Dose Ordered Sig/Gerson Route PRN Reason Start Time Stop Time Status Last Admin Dose Admin Acetaminophen (Tylenol Tab) 650 mg Q6HP PRN PO HEADACHE or DISCOMFORT 05/31/20 22:45 06/04/20 04:42 Al Hydrox/Mg Hydrox/Simethicone (Mylanta) 30 ml Q4HP PRN PO HEARTBURN/INDIGESTION 05/31/20 22:45 06/01/20 22:16 Home Med (Med Rec Complete!) ASDIRECTED XX 05/31/20 22:45 05/31/20 22:35 DC Hydroxyzine HCl (Atarax) 10 mg BID PRN PO ANXIETY 05/31/20 22:45 06/01/20 11:25 DC Hydroxyzine HCl (Atarax) 50 mg BID PRN PO ANXIETY 06/01/20 11:30 Magnesium Hydroxide (Milk Of Magnesia) 30 ml DAILYPRN PRN PO CONSTIPATION 05/31/20 22:45 Sertraline HCl (Zoloft) 100 mg DAILY PO 06/01/20 09:00 06/01/20 11:29 DC 06/01/20 08:10 Sertraline HCl (Zoloft) 150 mg DAILY PO 06/02/20 09:00 06/02/20 11:05 DC 06/02/20 08:08 Sertraline HCl (Zoloft) 200 mg DAILY PO 06/03/20 09:00 06/04/20 08:06 Trazodone HCl (Desyrel) 50 mg QHSP PRN PO INSOMNIA 05/31/20 22:45 06/03/20 21:13 Vitamin D (Vitamin D) 1,000 units QHS PO 06/01/20 21:00 06/03/20 20:07 Allergies Coded Allergies: No Known Drug Allergies (Verified Allergy, Unknown, 10/13/18) LUIS CHAN MD Jun 04, 2020 14:10
[2020-06-04 18:17] VITALS: BP 143/83
[2020-06-04] MEDS: traZODone 50 MG TAB PO PRN (19:56)
[2020-06-04] MEDS: VITAMIN D 1,000 INTERNATIONAL UNITS TABLET PO SCH (19:56)
[2020-06-05 06:16] VITALS: BP 127/97
[2020-06-05] MEDS: SERTRALINE 100 MG TAB PO SCH (08:43)
--- NOTE | 2020-06-05 14:30 | MHIPNPDOC ---
[facility] Progress Note Progress Note DATE OF SERVICE: 06/05/20 -----The patient was evAluated using ZOOM due to coronavirus pandemic HISTORY: Cedrick is a 24 year old male with a history of Schizoaffe ctive disorder, depressed subtype and r/o Intellectual developmental disorder, mild type who was brought into the [facility] ED, and later, admitted to the [facility] after letting his father know that he didnt feel safe. Staff is participating in group activities; He is still mildly withdrawn; denies feeling hopelessness, helplessness, poor energy and initial insomnia. I feel happy. ADLs are poor; he appears internally preoccupied. VITAL SIGNS: See below. CURRENT MEDICATIONS: See below. MENTAL STATUS EXAMINATION: Cedrick is a 24 year old Single, Disabled, male with a history of Schizoaffective disorder, depressed subtype and r/o Intellectual developmental disorder, mild type who was brought into the [facility] ED, and later, admitted to the [facility] after letting his father know that he didnt feel safe (suicidal thinking). Cedrick was dressed in hospital clothes, was mildly disheveled, was cooperative with the interview. Speech: Is fluid, normal in r/t/v Language skills are intact Thought processes including: linear at this time Thought content: Denies anxious/depressed thoughts, denies SI/HI at this time. Abstract reasoning, and computation: fair Description of associations: not loose at this time Description of abnormal or psychotic thoughts: Denies Judgment: fair Insight: fair Orientation: alert and oriented to person, place, date and time Recent and remote memory: intact Attention span and concentration: good Language: sparse, needed prompting Fund of knowledge: average Mood: Euthymic Affect: constricted, congruent, at times blunted DIAGNOSES: Schizoaffective disorder, depressed subtype r/o Intellectual developmental disorder, mild type ASSESSMENT: Patient is stable at this time, he will continue on the same treatment plan MANAGEMENT PLAN: Continue with current treatment plan TIME SPENT: 20 minutes Vital Signs Vital Signs Date Time Temp Pulse Resp B/P (MAP) Pulse Ox O2 Delivery O2 Flow Rate FiO2 06/05/20 06:16 97.3 90 16 127/97 (107) 97 Room Air Current Medications Current Medications Medications (Trade) Dose Ordered Sig/Gerson Route PRN Reason Start Time Stop Time Status Last Admin Dose Admin Acetaminophen (Tylenol Tab) 650 mg Q6HP PRN PO HEADACHE or DISCOMFORT 05/31/20 22:45 06/04/20 04:42 Al Hydrox/Mg Hydrox/Simethicone (Mylanta) 30 ml Q4HP PRN PO HEARTBURN/INDIGESTION 05/31/20 22:45 06/04/20 15:47 Home Med (Med Rec Complete!) ASDIRECTED XX 05/31/20 22:45 05/31/20 22:35 DC Hydroxyzine HCl (Atarax) 10 mg BID PRN PO ANXIETY 05/31/20 22:45 06/01/20 11:25 DC Hydroxyzine HCl (Atarax) 50 mg BID PRN PO ANXIETY 06/01/20 11:30 Magnesium Hydroxide (Milk Of Magnesia) 30 ml DAILYPRN PRN PO CONSTIPATION 05/31/20 22:45 Sertraline HCl (Zoloft) 100 mg DAILY PO 06/01/20 09:00 06/01/20 11:29 DC 06/01/20 08:10 Sertraline HCl (Zoloft) 150 mg DAILY PO 06/02/20 09:00 06/02/20 11:05 DC 06/02/20 08:08 Sertraline HCl (Zoloft) 200 mg DAILY PO 06/03/20 09:00 06/05/20 08:43 Trazodone HCl (Desyrel) 50 mg QHSP PRN PO INSOMNIA 05/31/20 22:45 06/04/20 19:56 Vitamin D (Vitamin D) 1,000 units QHS PO 06/01/20 21:00 06/04/20 19:56 Allergies Coded Allergies: No Known Drug Allergies (Verified Allergy, Unknown, 10/13/18) LUIS CHAN MD Jun 05, 2020 14:30
[2020-06-05] MEDS: MAALOX 30 ML SUSP *UDC PO PRN (15:07)
[2020-06-05] MEDS: traZODone 50 MG TAB PO PRN (20:07)
[2020-06-05] MEDS: VITAMIN D 1,000 INTERNATIONAL UNITS TABLET PO SCH (20:07)
[2020-06-06 06:48] VITALS: BP 118/82
[2020-06-06] MEDS: SERTRALINE 100 MG TAB PO SCH (08:01)
--- NOTE | 2020-06-06 15:43 | MHIPNPDOC ---
[facility] Progress Note Progress Note DATE OF SERVICE: 06/06/20 Cedrick is a 24 year old male with a history of Schizoaffective disorder, depressed subtype and r/o Intellectual developmental disorder, mild type who was brought into the [facility] ED, and later, admitted to the [facility] after letting his father know that he didnt feel safe (suicidal thinking). Staff report he is participating in group activities; He is still mildly withdrawn; ADLs are poor; VITAL SIGNS: See below. CURRENT MEDICATIONS: See below. MENTAL STATUS EXAMINATION: Cedrick is a 24 year old Single, Disabled, male with a history of Schizoaffective disorder, depressed subtype and r/o Intellectual developmental disorder, mild type who was brought into the [facility] ED, and later, admitted to the [facility] after letting his father know that he didnt feel safe (suicidal thinking). He is alert and oriented in the interview, appears his stated age, eye contact is intermittent, no observations of psychomotor agitation or retardation Speech: Is fluid, conversant, normal rate, tone and volume Language skills are intact Thought processes including: fairly linear and at times mildly disorganized Thought content: denies depression and anxiety. Denies suicidal/homicidal ideation, planning or intent. Abstract reasoning, and computation: fair Description of associations: denies, none observed Description of abnormal or psychotic thoughts: denies, observed mildly paranoid Judgment: fair Insight: fair Orientation: alert and oriented to person, place, time and situation Recent and remote memory: intact Attention span and concentration: good Language: expansive Fund of knowledge: average Mood: Euthymic Mood "I am happy" Affect: constricted, congruent, at times blunted DIAGNOSES: Schizoaffective disorder, depressed subtype r/o Intellectual developmental disorder, mild type ASSESSMENT: Patient appears improved from his reported of "not feeling safe." He smiles on approach and reporting that he has no suicidal ideation. Staff reporting that he is improving. Slept well until another peer was coded last night. Appetite eating well. Reviewed with me that his Suicidal thoughts and depression were the reasons that he returned to the hospital .is Dad. "Was having over the weekend and doesn't feel that it is as strong." Continues to have poor hygiene and grooming. States he last showered on . Going to groups. Talking and being social with other peers. MANAGEMENT PLAN: Continue all treatment modalities and medications as ordered. Patient to be discharged TIME SPENT: 35 minutes. Vital Signs Vital Signs Date Time Temp Pulse Resp B/P (MAP) Pulse Ox O2 Delivery O2 Flow Rate FiO2 06/06/20 06:48 97.7 98 20 118/82 (94) 95 Room Air Current Medications Current Medications Medications (Trade) Dose Ordered Sig/Gerson Route PRN Reason Start Time Stop Time Status Last Admin Dose Admin Acetaminophen (Tylenol Tab) 650 mg Q6HP PRN PO HEADACHE or DISCOMFORT 05/31/20 22:45 06/04/20 04:42 Al Hydrox/Mg Hydrox/Simethicone (Mylanta) 30 ml Q4HP PRN PO HEARTBURN/INDIGESTION 05/31/20 22:45 06/05/20 15:07 Home Med (Med Rec Complete!) ASDIRECTED XX 05/31/20 22:45 05/31/20 22:35 DC Hydroxyzine HCl (Atarax) 10 mg BID PRN PO ANXIETY 05/31/20 22:45 06/01/20 11:25 DC Hydroxyzine HCl (Atarax) 50 mg BID PRN PO ANXIETY 06/01/20 11:30 Magnesium Hydroxide (Milk Of Magnesia) 30 ml DAILYPRN PRN PO CONSTIPATION 05/31/20 22:45 Sertraline HCl (Zoloft) 100 mg DAILY PO 06/01/20 09:00 06/01/20 11:29 DC 06/01/20 08:10 Sertraline HCl (Zoloft) 150 mg DAILY PO 06/02/20 09:00 06/02/20 11:05 DC 06/02/20 08:08 Sertraline HCl (Zoloft) 200 mg DAILY PO 06/03/20 09:00 06/06/20 08:01 Trazodone HCl (Desyrel) 50 mg QHSP PRN PO INSOMNIA 05/31/20 22:45 06/05/20 20:07 Vitamin D (Vitamin D) 1,000 units QHS PO 06/01/20 21:00 06/05/20 20:07 Allergies Coded Allergies: No Known Drug Allergies (Verified Allergy, Unknown, 10/13/18) RENEE PAREDES NP Jun 06, 2020 15:43
[2020-06-06 16:07] VITALS: BP 135/85
[2020-06-06] MEDS: VITAMIN D 1,000 INTERNATIONAL UNITS TABLET PO SCH (20:15)
[2020-06-06] MEDS: traZODone 50 MG TAB PO PRN (21:10)
[2020-06-07 06:17] VITALS: BP 119/59
[2020-06-07] MEDS ORDERED: SERT-138 PO (08:24)
[2020-06-07] MEDS ORDERED: HYDR50TA70 PO (08:24)
[2020-06-07] MEDS ORDERED: INVE234I IM (08:24)
[2020-06-07] MEDS: SERTRALINE 100 MG TAB PO SCH (08:59)
--- NOTE | 2020-06-07 12:50 | MHDSPDOC ---
[facility] Discharge Summary Discharge Summary DATE OF ADMISSION: May 31, 2020 at 22:44 DATE OF DISCHARGE: Jun 07, 2020 at 11:20 DISCHARGE DIAGNOSES: Schizoaffective disorder, depressed subtype Intellectual developmental disorder, mild type REASON FOR ADMISSION: Cedrick is a 24 year old male with a history of Schizoaffective disorder, depressed subtype and r/o Intellectual developmental disorder, mild type who was brought into the [facility] ED, and later, admitted to the [facility] after letting his father know that he didnt feel safe (suicidal thinking). CONSULTANTS INVOLVED: See medical H + P by hospitalist TREATMENT AND PROGRESS ON THE UNIT: Patient was admitted to the [facility] on a 9.39 legal status he was afforded the following treatment modalities: 1) Individual Therapy 2) Group Therapy 3) Medication Management 4) Milieu Therapy 5) Safe Environment HOSPITAL COURSE: Patient was given his Invega Sustenna 234 mg IM injection on 05/31/20. Initially patient was withdrawn and guarded. His ADLS were poor, he was better about hygiene and grooming at the end of his hospitalization. He was cooperative with provider/patient sessions and attended some group therapies. DISCHARGE ASSESSMENT: In today's interview, patient is alert and oriented, pts dress is appropriate. Hygiene and grooming is improved. Smiles on approach and is pleasant and engaged in the interview. Denies depression and anxiety. Denies suicidal and homicidal ideation, planning or intent. He denies and is not observed with henri, psychotic symptoms of delusions, bizarre thinking, obsessions, paranoia, ruminations illogical thoughts, flight of ideas or having poor insight and judgement. Patient has normal mentation, declines further hospitalization on a voluntary status and meets criteria for discharge today. MENTAL STATUS EXAMINATION ON DISCHARGE: Cedrick is a 24 year old Single, Disabled, male with a history of Schizoaffective disorder, depressed subtype and r/o Intellectual developmental disorder, mild type who was brought into the [facility] ED, and later, admitted to the [facility] after letting his father know that he didnt feel safe (suicidal thinking). He is alert and oriented in the interview, appears his stated age, eye contact is intermittent, no observations of psychomotor agitation or retardation Speech: Is fluid, conversant, normal rate, tone and volume Language skills are intact Thought processes including: fairly linear and at times mildly disorganized Thought content: denies depression and anxiety. Denies suicidal/homicidal ideation, planning or intent. Abstract reasoning, and computation: fair Description of associations: denies, none observed Description of abnormal or psychotic thoughts: denies, observed mildly paranoid Judgment: fair Insight: fair Orientation: alert and oriented to person, place, time and situation Recent and remote memory: intact Attention span and concentration: good Language: expansive Fund of knowledge: average Mood: Euthymic Mood "I am happy" Affect: constricted, congruent, at times blunted MEDICATIONS ON DISCHARGE: See Medication Summary PLAN/FOLLOWUP ARRANGEMENTS: Segundo The amount of time spent in the coordination of care for this patient was approximately 25 minutes. Vital Signs/I&Os Vital Signs Date Time Temp Pulse Resp B/P (MAP) Pulse Ox O2 Delivery O2 Flow Rate FiO2 06/07/20 06:17 97.5 96 18 119/59 (79) 97 Room Air Medications Scheduled Cholecalciferol (Vitamin D3) (Vitamin D3) 1,000 Unit Tablet, 1,000 UNITS PO QHS, (Reported) Melatonin (Melatonin) 5 Mg Tablet, 5 MG PO QHS, (Reported) Paliperidone Palmitate (Invega Sustenna) 234 Mg/1.5 Ml Syringe, 234 MG IM QMONTH for antipsychotic, #1 Sertraline HCl (Sertraline HCl) 100 Mg Tablet, 200 MG PO DAILY for Depression, #14 Scheduled PRN Hydroxyzine HCl (Hydroxyzine HCl) 50 Mg Tablet, 50 MG PO BID PRN for ANXIETY, #14 Allergies Coded Allergies: No Known Drug Allergies (Verified Allergy, Unknown, 10/13/18) RENEE PAREDES NP Jun 07, 2020 12:50
== END 2020-06-07 11:20 | disposition home or self-care (01) | DRG 750 ==
LOC: M ED 17:21 → M ED INP 22:44 → M PSY 06-01 00:24
PROVIDERS: ADMIT Psychiatry & Neurology Geriatric Psychiatry; ATTEND Psychiatry & Neurology Psychiatry
DX: F25.1 Schizoaffective disorder, depressive type (principal); F70 Mild intellectual disabilities; D64.9 Anemia, unspecified; J45.909 Unspecified asthma, uncomplicated; Z20.822 Contact with and (suspected) exposure to COVID-19; Z79.899 Other long term (current) drug therapy; Z63.4 Disappearance and death of family member

== ENCOUNTER → 2020-06-14 | Outpatient (REF) | payer OTHER ==
[~2020-06-14] MED LIST changes: +HYDR-643 PO; +HYDR50TA70 PO; +MELA5TAB36 PO; +SERT-138 PO; +SERT50TA29 PO; +ZOLO50TA
[2020-06-14 14:36] LABS: ALBUMIN 3.8 GM/DL (3.2-5.2); ALT/SGPT 48 U/L (12-78); BILIRUBIN,TOTAL 0.4 MG/DL (0.2-1.0); BLOOD UREA NITROGEN 15 MG/DL (7-18); CALCIUM LEVEL 9.7 MG/DL (8.5-10.1); CARBON DIOXIDE LEVEL 28 MEQ/L (21-32); CHLORIDE LEVEL 102 MEQ/L (98-107); CHOLESTEROL LEVEL 158 MG/DL (<200); CHOLESTEROL RISK RATIO 4.157 (<5); CREATININE FOR GFR 0.86 MG/DL (0.70-1.30); GLOMERULAR FILTRATION RATE > 60.0 (>60); GLUCOSE, FASTING 97 MG/DL (70-100); HDL CHOLESTEROL 38 MG/DL (>40); LDL CHOLESTEROL 101 MG/DL (<100); NON-HDL-C 120 MG/DL; POTASSIUM SERUM 4.1 MEQ/L (3.5-5.1); SODIUM LEVEL 136 MEQ/L (136-145); TOTAL PROTEIN 8.1 GM/DL (6.4-8.2); TRIGLYCERIDES LEVEL 93 MG/DL (<150)
== END ==
LOC: M PLALAB 10:41
PROVIDERS: ATTEND Family Medicine
DX: Z13.220 Encounter for screening for lipoid disorders (principal); Z13.1 Encounter for screening for diabetes mellitus

== ENCOUNTER 2020-06-21 11:54 | Inpatient (IN) | payer MEDICAID, OTHER ==
[~2020-06-21] VITALS: Ht 185.4 cm; Wt 101.4 kg
--- OUTSIDE RECORDS SUMMARY | 2020-06-21 12:59 | CCD ---
Author Author [facility] Organization [facility] Address Unknown Phone Unavailable Care Team Providers Care Die Out Worker Name Role Phone NIRAJ WAHL Unavailable Unavailable [...] is protected by Article 27-F of the [facility] Public Health law. If you continue you may have access to information: Regarding HIV / AIDS; Provided by facilities licensed or operated by the [facility] Office of Mental Health; or Provided by the [facility] Office for People With Developmental Disabilities. If such information is present, then the following [facility] mandated warning applies: This information has been [...] law may result in a fine or fdc sentence or both. A general authorization for the release of medical or other information is NOT sufficient authorization for further disc losure. Encounters Encounter Providers Location Date Indications Data Source(s ) Outpatient [address] [place] [phone] 06/15/2020 12:00:00 AM EST eCW1 ([facility]) Outpatient [address] [place] [phone] 05/13/2020 12:00:00 AM EST eCW1 ([facility]) Outpatient Attender: [facility] 10/06/2019 12:02:23 AM EDT [address] [address] 08/21/2019 12:00:00 AM EDT eCW1 ([facility]) [address] [address] 07/10/2019 12:00:00 AM EST eCW1 ([facility]) [address] [address] 07/03/2019 12:00:00 AM EST eCW1 ([facility]) [address] [address] 05/14/2019 12:00:00 AM EST eCW1 ([facility]) [address] [address] 05/14/2019 12:00:00 AM EST eCW1 ([facility]) Medications Medication Brand Name Start Date Product Form Dose Route Admi nistrative Instructions Pharmacy Instructions Status Indications Reaction Description Data Source(s) 50 mg 06/15/2020 12:00:00 AM EST tablet 14 TAKE ONE TABLET BY MOUTH TWICE A DAY NEEDED FOR ANXIETY TAKE ONE TABLET BY MOUTH TWICE A DAY NEEDED FOR ANXIETY SOLD: 06/15/2020 [facility] 100 mg 06/13/2020 12:00:00 AM EST tablet 14 TAKE TWO TABLETS BY MOUTH EVERY DAY FOR DEPRESSION TAKE TWO TABLETS BY MOUTH EVERY DAY FOR DEPRESSION [facility] 100 mg 06/07/2020 12:00:00 AM EST tablet 14 TAKE TWO TABLETS BY MOUTH EVERY DAY FOR DEPRESSION TAKE TWO TABLETS BY MOUTH EVERY DAY FOR DEPRESSION [facility] 50 mg 06/07/2020 12:00:00 AM EST tablet 14 TAKE ONE TABLET BY MOUTH TWICE A DAY NEEDED FOR ANXIETY TAKE ONE TABLET BY MOUTH TWICE A DAY NEEDED FOR ANXIETY SOLD: 06/07/2020 [facility] 234 mg/1.5 mL 05/27/2020 12:00:00 AM EST [...] 1 SYRINGE ONCE A MONTH SOLD: 05/29/2019 [facility] 50 mcg/actuation 05/15/2019 12:00:00 AM EST [...] EST active 2 puff as needed eCW1 ([facility]) Fluticasone Propionate 50 MCG/ACT Fluticasone Propionate 50 MCG/ACT 05/14/2019 12:00:00 AM EST 1.0 {spray_in_each_nostril} susp ended Fluticasone Propionate 50 MCG/ACT eCW1 ([facility]) 200 ACTUAT Albuterol 0.09 MG/ACTUAT Mete red Dose Inhaler [ProAir] ProAir HFA 108 (90 Base) MCG/ACT ProAir HFA 108 (90 Base) MCG/ACT 05/14/2019 12:00:00 AM EST active 2 puff as needed eCW1 ([facility]) Fluticasone Propionate 50 MCG/ACT Fluticasone Propionate 50 MCG/ACT 05/14/2019 12:00:00 AM EST 1.0 {spray_in_each_nostril} susp ended Fluticasone Propionate 50 MCG/ACT eCW1 ([facility]) 200 ACTUAT Albuterol 0.09 MG/ACTUAT Mete red Dose Inhaler [ProAir] ProAir HFA 108 (90 Base) MCG/ACT ProAir HFA 108 (90 Base) MCG/ACT 05/14/2019 12:00:00 AM EST 2.0 {puff_as_needed} active Pro Air HFA 108 (90 Base) MCG/ACT eCW1 ([facility]) Fluticasone Propionate 50 MCG/ACT Fluticasone Propionate 50 MCG/ACT 05/14/2019 12:00:00 AM EST active 1 spray in each nostril eCW1 ([facility]) Fluticasone Propionate 50 MCG/ACT Fluticasone Propionate 50 MCG/ACT 05/14/2019 12:00:00 AM EST suspended 1 spr ay in each nostril eCW1 ([facility]) 200 ACTUAT Albuterol 0.09 MG/ACTUAT Mete red Dose Inhaler [ProAir] ProAir HFA 108 (90 Base) MCG/ACT ProAir HFA 108 (90 Base) MCG/ACT 05/14/2019 12:00:00 AM EST active 2 puff as needed eCW1 ([facility]) Fluticasone Propionate 50 MCG/ACT Fluticasone Propionate 50 MCG/ACT 05/14/2019 12:00:00 AM EST active 1 spray in each nostril eCW1 ([facility]) 200 ACTUAT Albuterol 0.09 MG/ACTUAT Mete red Dose Inhaler [ProAir] ProAir HFA 108 (90 Base) MCG/ACT ProAir HFA 108 (90 Base) MCG/ACT 05/14/2019 12:00:00 AM EST 2.0 {puff_as_needed} active Pro Air HFA 108 (90 Base) MCG/ACT eCW1 ([facility]) 234 mg/1.5 mL 05/01/2019 12:00:00 AM EST syringe 1 USE 1 SYRINGE ONCE A MONTH USE 1 SYRINGE ONCE A MONTH SOLD: 05/02/2019 [facility] Insurance Providers Payer name Policy type / Coverage type Policy ID Covered libertarian ID Covered libertarian's relationship to 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 Plan Information [facility] [id number] SP [id number] [employer] [place] [id number] SP [id number] [employer] [place] [id number] SP [id number] Managed Care - [facility] P [id number] S [id number] Medicaid S UNAVAILABLE S UNAVAILA BLE [employer] [place] [id number] SP [id number] ANSI-Medicaid [id number] Managed Care - [facility] P [id number] S [id number] [employer] [place] [id number] SP [id number] [id number] SP [id number] D Managed Care [facility] P [id number] S [id number] ANSI-Medicaid [id number] MEDICAID [id number] SP [id number] Problems, Conditions, and Diagnoses Code Display Name Description Problem Type Effective Dates Data Source(s) F25.1 [id number] Schizoaffective disorder, depressive type Problem 06/15/2020 12:00:00 AM EST eCW1 ([facility]) Z68.33 [id number] Body mass index [BMI] 33.0-33.9, adult Pr oblem 05/13/2020 12:00:00 AM EST eCW1 ([facility]) E66.09 [id number] Other obesity due to excess calories Prob dominga 05/13/2020 12:00:00 AM EST eCW1 ([facility]) Results ID Date Data Source [id number] 05/31/2020 10:45:00 PM EST [facility] Name Value Range Interpretation Code Description Data Roro rce(s) Supporting Document(s) SARS coronavirus 2 RNA [Presence] in Res piratory specimen by MARIO with probe detection NEGATIVE [facility] This lab was ordered by [facility] a nd reported by [facility]. ID Date Data Source [id number] 08/15/2019 07:15:00 PM EDT [facility] Name Value Range Interpretation Code Description Data Roro rce(s) Supporting Document(s) SARS CORONAVIRUS 2 RNA [facility] This lab was ordered by [facility] and reported by [facility]. Procedure Social History Code Duration Value Status Description Data Source(s ) Smoking 06/15/2020 12:00:00 AM EST Never Smoker completed Never S moker eCW1 ([facility]) Smoking 05/13/2020 12:00:00 AM EST Never Smoker completed Never S moker eCW1 ([facility]) Vital Signs ID Date Data Source UNK Name Value Range Interpretation Code Description Data Source(s) Diastolic blood pressure 72 mm[Hg] 72 mm[Hg] eCW1 ([facility]) Systolic blood pressure 120 mm[Hg] 120 mm[Hg] e CW1 ([facility]) Body temperature 97.3 [degF] 97.3 [degF] eCW1 ( [facility]) Respiratory rate 20 /min 20 /min eCW1 ([facility]) Heart rate 98 /min 98 /min eCW1 ([facility]) Body mass index (BMI) [Ratio] 32.42 kg/m2 32.42 kg/m2 eCW1 ([facility]) Body height 70 [in_i] 70 [in_i] eCW1 ([facility]) Body weight 226 [lb_av] 226 [lb_av] eCW1 ([facility]) Diastolic blood pressure 78 mm[Hg] 78 mm[Hg] eCW1 ([facility]) Systolic blood pressure 122 mm[Hg] 122 mm[Hg] e CW1 ([facility]) Body temperature 97.7 [degF] 97.7 [degF] eCW1 ( [facility]) Respiratory rate 20 /min 20 /min eCW1 ([facility]) Heart rate 106 /min 106 /min eCW1 ([facility]) Body mass index (BMI) [Ratio] 33.00 kg/m2 33.00 kg/m2 eCW1 ([facility]) Body height 70 [in_i] 70 [in_i] eCW1 ([facility]) Body weight 230 [lb_av] 230 [lb_av] eCW1 ([facility]) Diastolic blood pressure 74 mm[Hg] 74 mm[Hg] eCW1 ([facility]) Systolic blood pressure 120 mm[Hg] 120 mm[Hg] e CW1 ([facility]) Body temperature 95.7 [degF] 95.7 [degF] eCW1 ( [facility]) Respiratory rate 20 /min 20 /min eCW1 ([facility]) Heart rate 120 /min 120 /min eCW1 ([facility]) Body mass index (BMI) [Ratio] 28.12 kg/m2 28.12 kg/m2 eCW1 ([facility]) Body height 70 [in_us] 70 [in_us] eCW1 ([facility]) Body weight Measured 196 [lb_av] 196 [lb_av] eC W1 ([facility]) Diastolic blood pressure 70 mm[Hg] 70 mm[Hg] eCW1 ([facility]) Systolic blood pressure 120 mm[Hg] 120 mm[Hg] e CW1 ([facility]) Body temperature 96.3 [degF] 96.3 [degF] eCW1 ( [facility]) Respiratory rate 20 /min 20 /min eCW1 ([facility]) Heart rate 120 /min 120 /min eCW1 ([facility]) Body mass index (BMI) [Ratio] 28.12 kg/m2 28.12 kg/m2 eCW1 ([facility]) Body height 70 [in_us] 70 [in_us] eCW1 ([facility]) Body weight Measured 196 [lb_av] 196 [lb_av] eC W1 ([facility]) Diastolic blood pressure 60 mm[Hg] 60 mm[Hg] eCW1 ([facility]) Systolic blood pressure 110 mm[Hg] 110 mm[Hg] e CW1 ([facility]) Body temperature 98.6 [degF] 98.6 [degF] eCW1 ( [facility]) Respiratory rate 20 /min 20 /min eCW1 ([facility]) Heart rate 111 /min 111 /min eCW1 ([facility]) Body mass index (BMI) [Ratio] 26.40 kg/m2 26.40 kg/m2 eCW1 ([facility]) Body height 70 [in_us] 70 [in_us] eCW1 ([facility]) Body weight Measured 184 [lb_av] 184 [lb_av] eC W1 ([facility]) Patient Treatment Plan of Care Planned Activity Planned Date Details Description Data Source (s) Fluticasone Propionate 50 MCG/ACT 05/14/2019 12:00:00 AM EST eCW1 ([facility]) 200 ACTUAT Albuterol 0.09 MG/ACTUAT Metered Dose Inhal er [ProAir] 05/14/2019 12:00:00 AM EST eCW1 ([facility]) Fluticasone Propionate 50 MCG/ACT 05/14/2019 12:00:00 AM EST eCW1 ([facility]) 200 ACTUAT Albuterol 0.09 MG/ACTUAT Metered Dose Inhal er [ProAir] 05/14/2019 12:00:00 AM EST eCW1 ([facility])
--- OUTSIDE RECORDS SUMMARY | 2020-06-21 12:59 | CCD ---
Author Author [facility] Organization [facility] Address Unknown Phone Unavailable Care Team Providers Care Administrative Resources Associate Name Role Phone Marilee Lai Unavailable PROBLEMS Type Condition ICD9-CM Code UOF99-FE Code Onset Dates Condition S tatus W/U Status Risk SNOMED Code Notes Problem Other obesity due to excess calories E66.09 Act bertin confirmed [id number] Problem Schizoaffective disorder, depressive type F25.1 Active confirmed 83722040 Problem Environmental allergies Z91.09 Active confirmed [id number] Problem Body mass index [BMI] 33.0-33.9, adult Z68.33 A ctive confirmed [id number] ALLERGIES No Known Allergies ENCOUNTERS from 1997 to 2020-06-17 Encounter Location Date Provider Diagnosis [address] [phone] Jun, Marilee Lai Schizoaffective disorder, depressive typ e F25.1 IMMUNIZATIONS No Information SOCIAL HISTORY Tobacco Use: Social History Observation Description Date Details (start date - stop date) Never Smoker Sex Assigned At : Social History Observation Description Sex Assigned At Unknown Education: Question Answer Notes Level of Education: College Audit Question Answer Notes Total Score: 0 Interpretation: Alcohol Education Language: Question Answer Notes Languages spoken: Belizean Yazidi: Question Answer Notes Yazidi 33 None Domestic Violence: Question Answer Notes [...] FOR REFERRAL No Information VITAL SIGNS Weight 226 lbs Jun, Height 70 in Jun, BMI 32.42 kg/m2 Jun, Heart Rate 98 /min Jun, Respiratory Rate 20 /min Jun, Temperature 97.3 degrees Fahrenheit Jun, Oximetry 99 Jun, Blood pressure systolic 120 mm Hg Jun, Blood pressure diastolic 72 mm Hg Jun, MEDICATIONS Medication SIG (Take, Route, Frequency, Duration) Notes Start Da te End Date Status Invega Sustenna 234 MG/1.5ML 1.5 ml Intramuscular monthly Active Claritin 10 MG 1 tablet Orally Once a day as needed Not-Taking Sertraline HCl 100 MG 2 tablets Orally Once a day Active HydrOXYzine HCl 10 MG 1 tablet as needed Orally every 8 hrs Active Acetaminophen 500 MG 1 capsule as needed Orally every 6 hrs Active Fluticasone Propionate 50 MCG/ACT 1 spray in each nostril Nasall y Once a day May, Not-Taking ProAir HFA 108 (90 Base) MCG/ACT 2 puff as needed Inhalation ese ry 6 hrs May, Active PROCEDURES No Information RESULTS No Results REASON FOR VISIT [facility], d/c 06/07/20, schizophrenia , [facility] Discharge summary MEDICAL (GENERAL) HISTORY Type Description Date Medical History Schizoaffective disorder - Dr. Ziegler Medical History Environmental allergies Medical History Anxiety Surgical History double hernia repair 1999 Hospitalization History surgery related Hospitalization History [facility] stay for a week 09/11/2018 Hospitalization History [facility] for 6 days 07/2019 Hospitalization History [facility]hu x 7 day 06/2020 Goals Section No Information Health Concerns No Information MEDICAL EQUIPMENT No Information MENTAL STATUS No Information FUNCTIONAL STATUS No Information ASSESSMENTS Encounter Date Diagnosis Assessment Notes Treatment Notes Treatm ent Clinical Notes Jun, Schizoaffective disorder, depressive type (ICD-1 0 - F25.1) He had some medication changes in the hospital and feels he is doing better on his current regimen. He agrees to tell his parents if he has any more suicidal thoughts. Jun, Other Recent lab resu lts were reviewed with the patient. PLAN OF TREATMENT Medication Medication Name Sig Start Date Stop Date HydrOXYzine HCl 10 MG 1 tablet as needed Orally every 8 hrs Invega Sustenna 234 MG/1.5ML 1.5 ml Intramuscular monthly Sertraline HCl 100 MG 2 tablets Orally Once a day Treatment Notes Assessment Notes Clinical Notes Schizoaffective disorder, depressive type He had some medication changes in the hospital and feels he is doing better on his current regimen. He agrees to tell his parents if he has any more suicidal thoughts. Next Appt Details as sched Reason: Provider Name:Marilee Dean Beatrizchato, 2021-05-17 01:00:00 PM, [address] [place] [address], [phone], Insurance Providers Payer Name Payer Address Payer Phone Insured Name Patient Relati onship to Insured Coverage Start Date Coverage End Date [facility] [address] [facility] [phone] ELLYN BUSCH self
[2020-06-21 13:07] LABS: HEMATOCRIT 42.7 % (42.0-52.0); HEMOGLOBIN 14.9 g/dl (13.5-17.5); MEAN CORPUSCULAR HEMOGLOBIN 27.3 pg (27.0-33.0); MEAN CORPUSCULAR HGB CONC 34.9 g/dl (32.0-36.5); MEAN CORPUSCULAR VOLUME 78.3 fl (80.0-96.0); PLATELET COUNT, AUTOMATED 364 10^3/uL (150-450); RED BLOOD COUNT 5.45 10^6/uL (4.30-6.10); WHITE BLOOD COUNT 10.8 10^3/uL (4.0-10.0)
--- OUTSIDE RECORDS SUMMARY | 2020-06-21 13:14 | CCD ---
Author Author [facility] Organization [facility] Address Unknown Phone Unavailable Care Team Providers Care Case Finishing Machine Adjuster Name Role Phone NIRAJ WAHL Unavailable Unavailable [...] is protected by Article 27-F of the [facility] Public Health law. If you continue you may have access to information: Regarding HIV / AIDS; Provided by facilities licensed or operated by the [facility] Office of Mental Health; or Provided by the [facility] Office for People With Developmental Disabilities. If such information is present, then the following [facility] mandated warning applies: This information [...] law may result in a fine or fpc sentence or both. A general authorization for the release of medical or other information is NOT sufficient authorization for further disc losure. Encounters Encounter Providers Location Date Indications Data Source(s ) Outpatient [address] [place] [phone] 06/15/2020 12:00:00 AM EST [facility]) Outpatient [address] [place] [phone] 05/13/2020 12:00:00 AM EST eCW1 ([facility]) Outpatient Attender: NIRAJ [facility] 10/06/2019 12:02:23 AM EDT [address] [phone] 08/21/2019 12:00:00 AM EDT eCW1 ([facility]) [address] [phone] 07/10/2019 12:00:00 AM EST eCW[facility] ([facility]) [address] [phone] 07/03/2019 12:00:00 AM EST eCW[facility] ([facility]) [address] [phone] 05/14/2019 12:00:00 AM EST eCW[facility] ([facility]) [address] [phone] 05/14/2019 12:00:00 AM EST eCW1 ([facility]) Medications Medication Brand Name Start Date Product [...] EST active 2 puff as needed eCW1 ([facility]) Fluticasone Propionate 50 MCG/ACT Fluticasone Propionate 50 MCG/ACT 05/14/2019 12:00:00 AM EST 1.0 {spray_in_each_nostril} susp ended Fluticasone Propionate 50 MCG/ACT eCW1 ([facility]) 200 ACTUAT Albuterol 0.09 MG/ACTUAT Mete red Dose Inhaler [ProAir] ProAir HFA 108 (90 Base) MCG/ACT ProAir HFA 108 (90 Base) MCG/ACT 05/14/2019 12:00:00 AM EST active 2 puff as needed eCW1 ([facility]) Fluticasone Propionate 50 MCG/ACT Fluticasone Propionate 50 MCG/ACT 05/14/2019 12:00:00 AM EST 1.0 {spray_in_each_nostril} susp ended Fluticasone Propionate 50 MCG/ACT eCW1 ([facility]) 200 ACTUAT Albuterol 0.09 MG/ACTUAT Mete red Dose Inhaler [ProAir] ProAir HFA 108 (90 Base) MCG/ACT ProAir HFA 108 (90 Base) MCG/ACT 05/14/2019 12:00:00 AM EST 2.0 {puff_as_needed} active Pro Air HFA 108 (90 Base) MCG/ACT eCW1 ([facility]) Fluticasone Propionate 50 MCG/ACT Fluticasone Propionate 50 MCG/ACT 05/14/2019 12:00:00 AM EST active 1 spray in each nostril eCW1 ([facility]) Fluticasone Propionate 50 MCG/ACT Fluticasone Propionate 50 MCG/ACT 05/14/2019 12:00:00 AM EST suspended 1 spr ay in each nostril eCW1 ([facility]) 200 ACTUAT Albuterol 0.09 MG/ACTUAT Mete red Dose Inhaler [ProAir] ProAir HFA 108 (90 Base) MCG/ACT ProAir HFA 108 (90 Base) MCG/ACT 05/14/2019 12:00:00 AM EST active 2 puff as needed eCW1 ([facility]) Fluticasone Propionate 50 MCG/ACT Fluticasone Propionate 50 MCG/ACT 05/14/2019 12:00:00 AM EST active 1 spray in each nostril eCW1 ([facility]) 200 ACTUAT Albuterol 0.09 MG/ACTUAT Mete red Dose Inhaler [ProAir] ProAir HFA 108 (90 Base) MCG/ACT ProAir HFA 108 (90 Base) MCG/ACT 05/14/2019 12:00:00 AM EST 2.0 {puff_as_needed} active Pro Air HFA 108 (90 Base) MCG/ACT eCW1 ([facility]) 234 mg/1.5 mL 05/01/2019 12:00:00 AM EST syringe 1 USE 1 SYRINGE ONCE A MONTH USE 1 SYRINGE ONCE A MONTH SOLD: 05/02/2019 [facility] Insurance Providers Payer name Policy type / Coverage type Policy ID Covered alliance party ID Covered alliance party's relationship to 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 Plan Information [facility] [id number] SP [id number] [facility] [id number] SP [id number] [facility] [id number] SP [id number] Managed Care [facility] P [id number] S [id number] Medicaid S UNAVAILABLE S UNAVAILA BLE [facility] [facility] [id number] SP [id number] ANSI-Medicaid [id number] Managed Care - [facility] P [id number] S [id number] [employer] [employer] [id number] SP [id number] [facility] [id number] SP [id number] D Managed Care [facility] P [id number] S [id number] ANSI-Medicaid [id number] MEDICAID [id number] SP [id number] Problems, Conditions, and Diagnoses Code Display Name Description Problem Type Effective Dates Data Source(s) F25.1 [id number] Schizoaffective disorder, depressive type Problem 06/15/2020 12:00:00 AM EST eCW1 ([facility]) Z68.33 [id number] Body mass index [BMI] 33.0-33.9, adult Pr oblem 05/13/2020 12:00:00 AM EST eCW1 ([facility]) E66.09 [id number] Other obesity due to excess calories Prob dominga 05/13/2020 12:00:00 AM EST eCW1 ([facility]) Results ID Date Data Source [id number] 05/31/2020 10:45:00 PM EST [facility] Name Value Range Interpretation Code Description Data Roro rce(s) Supporting Document(s) SARS coronavirus 2 RNA [Presence] in Res piratory specimen by MARIO with probe detection NEGATIVE [facility] This lab was ordered by [facility] a nd reported by [facility]. ID Date Data Source [id number] 08/15/2019 07:15:00 PM EDT [facility] Name Value Range Interpretation Code Description Data Roro rce(s) Supporting Document(s) SARS CORONAVIRUS 2 RNA [facility] This lab was ordered by [facility] and reported by [facility]. Procedure Social History Code Duration Value Status Description Data Source(s ) Smoking 06/15/2020 12:00:00 AM EST Never Smoker completed Never S moker eCW1 ([facility]) Smoking 05/13/2020 12:00:00 AM EST Never Smoker completed Never S moker eCW1 ([facility]) Vital Signs ID Date Data Source UNK Name Value Range Interpretation Code Description Data Source(s) Diastolic blood pressure 72 mm[Hg] 72 mm[Hg] eCW1 ([facility]) Systolic blood pressure 120 mm[Hg] 120 mm[Hg] e CW1 ([facility]) Body temperature 97.3 [degF] 97.3 [degF] eCW1 ( [facility]) Respiratory rate 20 /min 20 /min eCW1 ([facility]) Heart rate 98 /min 98 /min eCW1 ([facility]) Body mass index (BMI) [Ratio] 32.42 kg/m2 32.42 kg/m2 eCW1 ([facility]) Body height 70 [in_i] 70 [in_i] eCW1 ([facility]) Body weight 226 [lb_av] 226 [lb_av] eCW1 ([facility]) Diastolic blood pressure 78 mm[Hg] 78 mm[Hg] eCW1 ([facility]) Systolic blood pressure 122 mm[Hg] 122 mm[Hg] e CW1 ([facility]) Body temperature 97.7 [degF] 97.7 [degF] eCW1 ( [facility]) Respiratory rate 20 /min 20 /min eCW1 ([facility]) Heart rate 106 /min 106 /min eCW1 ([facility]) Body mass index (BMI) [Ratio] 33.00 kg/m2 33.00 kg/m2 eCW1 ([facility]) Body height 70 [in_i] 70 [in_i] eCW1 ([facility]) Body weight 230 [lb_av] 230 [lb_av] eCW1 ([facility]) Diastolic blood pressure 74 mm[Hg] 74 mm[Hg] eCW1 ([facility]) Systolic blood pressure 120 mm[Hg] 120 mm[Hg] e CW1 ([facility]) Body temperature 95.7 [degF] 95.7 [degF] eCW1 ( [facility]) Respiratory rate 20 /min 20 /min eCW1 ([facility]) Heart rate 120 /min 120 /min eCW1 ([facility]) Body mass index (BMI) [Ratio] 28.12 kg/m2 28.12 kg/m2 eCW1 ([facility]) Body height 70 [in_us] 70 [in_us] eCW1 ([facility]) Body weight Measured 196 [lb_av] 196 [lb_av] eC W1 ([facility]) Diastolic blood pressure 70 mm[Hg] 70 mm[Hg] eCW1 ([facility]) Systolic blood pressure 120 mm[Hg] 120 mm[Hg] e CW1 ([facility]) Body temperature 96.3 [degF] 96.3 [degF] eCW1 ( [facility]) Respiratory rate 20 /min 20 /min eCW1 ([facility]) Heart rate 120 /min 120 /min eCW1 ([facility]) Body mass index (BMI) [Ratio] 28.12 kg/m2 28.12 kg/m2 eCW1 ([facility]) Body height 70 [in_us] 70 [in_us] eCW1 ([facility]) Body weight Measured 196 [lb_av] 196 [lb_av] eC W1 ([facility]) Diastolic blood pressure 60 mm[Hg] 60 mm[Hg] eCW1 ([facility]) Systolic blood pressure 110 mm[Hg] 110 mm[Hg] e CW1 ([facility]) Body temperature 98.6 [degF] 98.6 [degF] eCW1 ( [facility]) Respiratory rate 20 /min 20 /min eCW1 ([facility]) Heart rate 111 /min 111 /min eCW1 ([facility]) Body mass index (BMI) [Ratio] 26.40 kg/m2 26.40 kg/m2 eCW1 ([facility]) Body height 70 [in_us] 70 [in_us] eCW1 ([facility]) Body weight Measured 184 [lb_av] 184 [lb_av] eC W1 ([facility]) Patient Treatment Plan of Care Planned Activity Planned Date Details Description Data Source (s) Fluticasone Propionate 50 MCG/ACT 05/14/2019 12:00:00 AM EST eCW1 ([facility]) 200 ACTUAT Albuterol 0.09 MG/ACTUAT Metered Dose Inhal er [ProAir] 05/14/2019 12:00:00 AM EST eCW1 ([facility]) Fluticasone Propionate 50 MCG/ACT 05/14/2019 12:00:00 AM EST eCW1 ([facility]) 200 ACTUAT Albuterol 0.09 MG/ACTUAT Metered Dose Inhal er [ProAir] 05/14/2019 12:00:00 AM EST eCW1 ([facility])
[2020-06-21 13:42] LABS: ACETAMINOPHEN LEVEL < 2.0 UG/ML (10.0-30.0); ALBUMIN 3.7 GM/DL (3.2-5.2); ALT/SGPT 40 U/L (12-78); BILIRUBIN,DIRECT 0.1 MG/DL (0.0-0.2); BILIRUBIN,TOTAL 0.3 MG/DL (0.2-1.0); BLOOD UREA NITROGEN 9 MG/DL (7-18); CALCIUM LEVEL 10.4 MG/DL (8.5-10.1); CARBON DIOXIDE LEVEL 26 MEQ/L (21-32); CHLORIDE LEVEL 103 MEQ/L (98-107); CREATININE FOR GFR 0.88 MG/DL (0.70-1.30); ETHYL ALCOHOL (ETHANOL) < 0.003 % (0.000-0.010); GLOMERULAR FILTRATION RATE > 60.0 (>60); GLUCOSE, FASTING 98 MG/DL (70-100); SALICYLATE LEVEL < 1.7 MG/DL (5.0-30.0); SODIUM LEVEL 138 MEQ/L (136-145)
[2020-06-21 14:23] LABS: AMPHETAMINES LEVEL URINE NEGATIVE (NEGATIVE); BARBITURATES URINE NEGATIVE (NEGATIVE); BENZODIAZEPINES URINE NEGATIVE (NEGATIVE); CANNABINOIDS URINE NEGATIVE (NEGATIVE); COCAINE METABOLITE URINE NEGATIVE (NEGATIVE); METHADONE URINE NEGATIVE (NEGATIVE); OPIATES URINE NEGATIVE (NEGATIVE); PHENCYCLIDINE URINE NEGATIVE (NEGATIVE)
--- NOTE | 2020-06-21 19:50 | ECGEPIP ---
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
[2020-06-21] MEDS ORDERED: HYDR50TA70 PO (20:11)
[2020-06-21] MEDS ORDERED: ZOLO100T PO (20:11)
[2020-06-22 09:17] LABS: RSV AMPLIFICATION NEGATIVE (NEGATIVE)
[2020-06-22] MEDS ORDERED: MOM 30ML SUSPENSION UDC PO PRN (17:00)
[2020-06-22] MEDS ORDERED: ACETAMINOPHEN TAB 650MG DOSE (2X325MG) PO PRN (17:00)
[2020-06-22] MEDS ORDERED: MAALOX 30 ML SUSP *UDC PO PRN (17:00)
--- OUTSIDE RECORDS SUMMARY | 2020-06-22 17:30 | CCD ---
Author Author [facility] Organization [facility] Address Unknown Phone Unavailable Care Team Providers Care Social Services Specialist Name Role Phone NIRAJ WAHL Unavailable Unavailable [...] is protected by Article 27-F of the [facility] Public Health law. If you continue you may have access to information: Regarding HIV / AIDS; Provided by facilities licensed or operated by the [facility] Office of Mental Health; or Provided by the [facility] Office for People With Developmental Disabilities. If such information is present, then the following [facility] mandated warning applies: This information has [...] law may result in a fine or nursing home sentence or both. A general authorization for the release of medical or other information is NOT sufficient authorization for further disc losure. Encounters Encounter Providers Location Date Indications Data Source(s ) Outpatient [id number] 06/21/2020 05:43:00 PM EST bipolar [facility] bipolar depression Outpatient [address] [place] [phone] 06/15/2020 12:00:00 AM EST eCW1 ([facility]) Outpatient [address] [place] [phone] 05/13/2020 12:00:00 AM EST eCW1 ([facility]) Outpatient Attender: NIRAJ [facility] 10/06/2019 12:02:23 AM EDT [address] [place] [address] 08/21/2019 12:00:00 AM EDT eCW1 ([facility]) [address] [place] [address] 07/10/2019 12:00:00 AM EST eCW1 ([facility]) [address] [place] [address] 07/03/2019 12:00:00 AM EST eCW1 ([facility]) [address] [place] [address] 05/14/2019 12:00:00 AM EST eCW1 ([facility]) [address] [phone] 05/14/2019 12:00:00 AM EST eCW1 ([facility]) Medications Medication Brand Name Start Date Product [...] EST active 2 puff as needed eCW1 ([facility]) Fluticasone Propionate 50 MCG/ACT Fluticasone Propionate 50 MCG/ACT 05/14/2019 12:00:00 AM EST 1.0 {spray_in_each_nostril} susp ended Fluticasone Propionate 50 MCG/ACT eCW1 ([facility]) 200 ACTUAT Albuterol 0.09 MG/ACTUAT Mete red Dose Inhaler [ProAir] ProAir HFA 108 (90 Base) MCG/ACT ProAir HFA 108 (90 Base) MCG/ACT 05/14/2019 12:00:00 AM EST active 2 puff as needed eCW1 ([facility]cludes [facility]) Fluticasone Propionate 50 MCG/ACT Fluticasone Propionate 50 MCG/ACT 05/14/2019 12:00:00 AM EST 1.0 {spray_in_each_nostril} susp ended Fluticasone Propionate 50 MCG/ACT eCW1 ([facility]) 200 ACTUAT Albuterol 0.09 MG/ACTUAT Mete red Dose Inhaler [ProAir] ProAir HFA 108 (90 Base) MCG/ACT ProAir HFA 108 (90 Base) MCG/ACT 05/14/2019 12:00:00 AM EST 2.0 {puff_as_needed} active Pro Air HFA 108 (90 Base) MCG/ACT eCW1 ([facility]cludes [facility]) Fluticasone Propionate 50 MCG/ACT Fluticasone Propionate 50 MCG/ACT 05/14/2019 12:00:00 AM EST active 1 spray in each nostril eCW1 ([facility]cludes [facility]) Fluticasone Propionate 50 MCG/ACT Fluticasone Propionate 50 MCG/ACT 05/14/2019 12:00:00 AM EST suspended 1 spr ay in each nostril eCW1 ([facility]) 200 ACTUAT Albuterol 0.09 MG/ACTUAT Mete red Dose Inhaler [ProAir] ProAir HFA 108 (90 Base) MCG/ACT ProAir HFA 108 (90 Base) MCG/ACT 05/14/2019 12:00:00 AM EST active 2 puff as needed eCW1 ([facility]) Fluticasone Propionate 50 MCG/ACT Fluticasone Propionate 50 MCG/ACT 05/14/2019 12:00:00 AM EST active 1 spray in each nostril eCW1 ([facility]) 200 ACTUAT Albuterol 0.09 MG/ACTUAT Mete red Dose Inhaler [ProAir] ProAir HFA 108 (90 Base) MCG/ACT ProAir HFA 108 (90 Base) MCG/ACT 05/14/2019 12:00:00 AM EST 2.0 {puff_as_needed} active Pro Air HFA 108 (90 Base) MCG/ACT eCW1 ([facility]) 234 mg/1.5 mL 05/01/2019 12:00:00 AM EST syringe 1 USE 1 SYRINGE ONCE A MONTH USE 1 SYRINGE ONCE A MONTH SOLD: 05/02/2019 [facility] Insurance Providers Payer name Policy type / Coverage type Policy ID Covered alliance party ID Covered alliance party's relationship to 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 Plan Information [facility] [employer] [employer] [employer] [id number] SP [id number] [facility] [id number] SP [id number] [facility] [employer] [employer] [id number] SP [id number] Managed Care - [facility] P [id number] S [id number] Medicaid S UNAVAILABLE S UNAVAILA BLE [employer] [facility] [employer] [id number] SP [id number] ANSI-Medicaid [id number] Managed Care - [facility] P [id number] S [id number] [employer] [facility] [facility] [employer] [id number] SP [id number] [facility] [id number] SP [id number] D Managed Care [facility] P [id number] S [id number] ANSI-Medicaid [id number] MEDICAID [id number] SP [id number] Problems, Conditions, and Diagnoses Code Display Name Description Problem Type Effective Dates Data Source(s) F25.1 72208462 Schizoaffective disorder, depressive type Problem 06/15/2020 12:00:00 AM EST W1 ([facility]) Z68.33 [id number] Body mass index [BMI] 33.0-33.9, adult Pr oblem 05/13/2020 12:00:00 AM EST W1 ([facility]) E66.09 [id number] Other obesity due to excess calories Prob dominga 05/13/2020 12:00:00 AM EST eCW1 ([facility]) bipolar depression bipolar depression Diagnosis 05:43:00 PM [facility] Results ID Date Data Source [id number] 06/21/2020 07:01:32 PM [facility] Name Value Range Interpretation Code Description Data Roro rce(s) Supporting Document(s) Progress Note [facility] LKKNQu4xVcPLBiUl42/MIWceRKUkj9PbWHcxJHi5KCpcDEXjR7XeIJC7qP7sYCA3NIyDPuZcUyEfNdX0 lbm [file] dGE+DQogICAgICAgICAgICAgICAgICAgICAgICAgIC AgICAgICAgICAgICAgICAgICAgICAgICAgICAgICAgICAgICAgICAgICAgICAgICAgICAgICAgICAgIC AgICAgICAgICAgICAgDQogICAgICAgICAgICAgICAgICAgICAgICAgICAgICAgICAgICAgICAgICAgIC AgICAgICAgICAgICAgICAgICAgICAgICAgICAgICAg ICAgICAgICAgICAgICAgICAgICAgICAgDQogICAgICAgICAgICAgICAgICAgICAgICAgICAgICAgICAg ICAgICAgICAgICAgICAgICAgICAgICAgICAgICAgICAgICAgICAgICAgICAgICAgICAgICAgICAgICAg ICAgICAgDQogICAgICAgICAgICAgICAgICAgICAgIC AgICAgICAgICAgICAgICAgICAgICAgICAgICAgICAgICAgICAgICAgICAgICAgICAgICAgICAgICAgIC AgICAgICAgICAgICAgICAgDQogICAgICAgICAgICAgICAgICAgICAgICAgICAgICAgICAgICAgICAgIC AgICAgICAgICAgICAgICAgICAgICAgICAgICAgICAg ICAgICAgICAgICAgICAgICAgICAgICAgICAgDQogICAgICAgICAgICAgICAgICAgICAgICAgICAgICAg ICAgICAgICAgICAgICAgICAgICAgICAgICAgICAgICAgICAgICAgICAgICAgICAgICAgICAgICAgICAg ICAgICAgICAgDQogICAgICAgICAgICAgICAgICAgIC AgICAgICAgICAgICAgICAgICAgICAgICAgICAgICAgICAgICAgICAgICAgICAgICAgICAgICAgICAgIC AgICAgICAgICAgICAgICAgICAgDQogICAgICAgICAgICAgICAgICAgICAgICAgICAgICAgICAgICAgIC AgICAgICAgICAgICAgICAgICAgICAgICAgICAgICAg ICAgICAgICAgICAgICAgICAgICAgICAgICAgICAgDQogICAgICAgICAgICAgICAgICAgICAgICAgICAg ICAgICAgICAgICAgICAgICAgICAgICAgICAgICAgICAgICAgICAgICAgICAgICAgICAgICAgICAgICAg ICAgICAgICAgICAgDQogICAgICAgICAgICAgICAgIC AgICAgICAgICAgICAgICAgICAgICAgICAgICAgICAgICAgICAgICAgICAgICAgICAgICAgICAgICAgIC EjPXUvHHJxWTZrNJYsFOHxYETwIFNfKCx0O1jzHFRbHIIsHB1yBNz3Fr7+TJzKIfZcSBW3nfMyuM6SCB 4ws1KwDFgkLNVgx9RvUFr0DC3BAJXqSWndEO8LHHrd eb6PMQOzDWPhrWQZn0kpBzEwZQZ2VTSxTznmRP1NHIObW9mhmdRbKLAvOXJHFF2BUlMxO3NxqS95GQTI Cj4+ORrwynTzBdgBIeZ4ZSTgb8GnFTp5YN9MSDZtBkfyl5LnKVHjOPTKDDuxBV3UXNH9NXE2GSMiCa9Y ZZCmP689yePrKK6KBr8MZmXdFG5zbp0OTVMcPKVxOk sHSed2LUfiNK4AfLExRCmDcv9euqQhhpARg8AujdErmOWBZYHjJMSmFQLsp0JvN6jtWFVoRu4hXo2tOR DkXLE0XrWrGAPTKW2EAKYuNBLxsZAwCPCtJFYIOU1PNTqxXJZ3FmfsynBsyFFxYJyjBR6CQUXtxoQgVL QgMCBSDQo+Kw9OXY6zs6ShFUtjTwOmOP0shd2RYSvJ KbPyR2P0vDOiF3L1PYxjHw5BIVYaZHVcJUNgVKYANPekDJ4IMB2covN3TY3LcJVyNMBoERBrpUPdIDh0 A92thLKfGNduVT5ACPH+Jennifer+Fh1TMUKjMFUpPCHlItXpQKCWMyXwD7ZyQ3NBm9QuJ5RwCJ34tQeurjNi TTdxTE8IYA4hRSCkKRSPYM6WsRRkdP8zpgQoIKMiZP PHGeSzR29bdLImIFBnCRTeSDKmLw6VCFXaG1XqxrNvwMtzalFbYUCnJRPYPD9EKHcoxpHjjLSlzUvhFH 14vXmlOW3CRg5ZOoOuRG5gcg9BcYBqRd9NKSMqVh9LMSKyEIVjXAGuONY3QDYwPbAwPPfqJAWaTRTyER L4MIYrVJXbNS1LZjZjYLDfSRQ8VBrgJEArLEPdel5Z LNRsVQLtQqChTTKsOWBvTZWrLSbwUSViBXKuTKU2XTChCRBeQI4MAoKnVRWcCKR0EMolKTAeRSZeys0S OBUxBECoNCekXzSsRKJfYIRqQRlbVWRvYDSwBGzxENUoFONxUO4IAbCvAPFqGYNiYofbCVAhITUzcn8G UGKmFTKzTlR0GfRzYEUwQASnEPsfXDRyYZA9MuR0AY JhJTRkBO7ZKbLdALOqVTP3WWczTWCeWYDfqa3MKNZrLSAxBXZ2JENkTCJhRJHkMTpoYZEvLQI3MXx1YX BsNNRxOK1PEzWbFOEwFQM5LlGvWYDbUPGkcm8HPNJmLTDuBmIbZaOuYFQeADUkFGpnIVFkWVZ0GhFnVK MpUDNrYB2RZpKaGWutPQXXZes5IZwhI3i5PPGmKl7O Z5Vib0EpFXFuWZOYSDmqRP7xjaVaGCZzUv7JJ8sLEik9BcjcJpEmY1XgM9S7YMS7ISf7E5K9VYRxDoTh TWD6Vl2rAKLqXDKmELHyDMW1SDvgVDdfHRa9QQtuKJLmFJBzVBv4GuMmNT3PZp9TSeX5ULY2jNDxLf3N Kka1Ei5OZVEDX2IHFw== ID Date Data Source [id number] 05/31/2020 10:45:00 PM EST [facility] Name Value Range Interpretation Code Description Data Roro rce(s) Supporting Document(s) SARS coronavirus 2 RNA [Presence] in Res piratory specimen by MARIO with probe detection NEGATIVE [facility] This lab was ordered by [facility] a nd reported by [facility]. ID Date Data Source [id number] 08/15/2019 07:15:00 PM EDT [facility] Name Value Range Interpretation Code Description Data Roro rce(s) Supporting Document(s) SARS CORONAVIRUS 2 RNA [facility] This lab was ordered by [facility] and reported by [facility]. Procedure Social History Code Duration Value Status Description Data Source(s ) Smoking 06/15/2020 12:00:00 AM EST Never Smoker completed Never S moker eCW1 ([facility]) Smoking 05/13/2020 12:00:00 AM EST Never Smoker completed Never S moker eCW1 ([facility] Includes [facility]) Vital Signs ID Date Data Source UNK Name Value Range Interpretation Code Description Data Source(s) Diastolic blood pressure 72 mm[Hg] 72 mm[Hg] eCW1 ([facility]) Systolic blood pressure 120 mm[Hg] 120 mm[Hg] e CW1 ([facility]cludes [facility]) Body temperature 97.3 [degF] 97.3 [degF] eCW1 ( [facility]cludes [facility]) Respiratory rate 20 /min 20 /min eCW1 ([facility]) Heart rate 98 /min 98 /min eCW1 ([facility]) Body mass index (BMI) [Ratio] 32.42 kg/m2 32.42 kg/m2 [facility] (Count Includes [facility]) Body height 70 [in_i] 70 [in_i] W1 ([facility]) Body weight 226 [lb_av] 226 [lb_av] eCW1 ([facility] Diastolic blood pressure 78 mm[Hg] 78 mm[Hg] eCW1 ([facility]) Systolic blood pressure 122 mm[Hg] 122 mm[Hg] e CW1 ([facility]) Body temperature 97.7 [degF] 97.7 [degF] eCW1 ( [facility]) Respiratory rate 20 /min 20 /min eCW1 ([facility]) Heart rate 106 /min 106 /min eCW1 ([facility]) Body mass index (BMI) [Ratio] 33.00 kg/m2 33.00 kg/m2 W1 ([facility]) Body height 70 [in_i] 70 [in_i] eCW1 ([facility]) Body weight 230 [lb_av] 230 [lb_av] eCW1 ([facility]) Diastolic blood pressure 74 mm[Hg] 74 mm[Hg] eCW1 ([facility]) Systolic blood pressure 120 mm[Hg] 120 mm[Hg] e CW1 ([facility]cludes [facility]) Body temperature 95.7 [degF] 95.7 [degF] eCW1 ( [facility]cludes [facility]) Respiratory rate 20 /min 20 /min eCW1 ([facility]) Heart rate 120 /min 120 /min eCW1 ([facility]) Body mass index (BMI) [Ratio] 28.12 kg/m2 28.12 kg/m2 eCW1 ([facility]) Body height 70 [in_us] 70 [in_us] eCW1 ([facility]) Body weight Measured 196 [lb_av] 196 [lb_av] eC W1 ([facility]cludes [facility]) Diastolic blood pressure 70 mm[Hg] 70 mm[Hg] eCW1 ([facility]) Systolic blood pressure 120 mm[Hg] 120 mm[Hg] e CW1 ([facility]) Body temperature 96.3 [degF] 96.3 [degF] eCW1 ( [facility]cludes [facility]) Respiratory rate 20 /min 20 /min eCW1 ([facility]) Heart rate 120 /min 120 /min eCW1 ([facility]) Body mass index (BMI) [Ratio] 28.12 kg/m2 28.12 kg/m2 eCW1 ([facility]) Body height 70 [in_us] 70 [in_us] eCW1 ([facility]) Body weight Measured 196 [lb_av] 196 [lb_av] eC W1 ([facility] Includes [facility]) Diastolic blood pressure 60 mm[Hg] 60 mm[Hg] eCW1 ([facility]cludes [facility]) Systolic blood pressure 110 mm[Hg] 110 mm[Hg] e CW1 ([facility]cludes [facility]) Body temperature 98.6 [degF] 98.6 [degF] eCW1 ( [facility]cludes [facility]) Respiratory rate 20 /min 20 /min eCW1 ([facility]) Heart rate 111 /min 111 /min eCW1 ([facility]) Body mass index (BMI) [Ratio] 26.40 kg/m2 26.40 kg/m2 eCW1 ([facility]cludes [facility]) Body height 70 [in_us] 70 [in_us] eCW1 ([facility]) Body weight Measured 184 [lb_av] 184 [lb_av] eC W1 ([facility]cludes [facility]) ID Date Data Source [id number] 06/21/2020 07:01:32 PM EST [facility] Name Value Range Interpretation Code Description Data Source(s) TRANSFER FROM [facility] Patient Treatment Plan of Care Planned Activity Planned Date Details Description Data Source (s) Fluticasone Propionate 50 MCG/ACT 05/14/2019 12:00:00 AM EST eCW1 ([facility]) 200 ACTUAT Albuterol 0.09 MG/ACTUAT Metered Dose Inhal er [ProAir] 05/14/2019 12:00:00 AM EST eCW1 ([facility]) Fluticasone Propionate 50 MCG/ACT 05/14/2019 12:00:00 AM EST eCW1 ([facility]cludes [facility]) 200 ACTUAT Albuterol 0.09 MG/ACTUAT Metered Dose Inhal er [ProAir] 05/14/2019 12:00:00 AM EST eCW1 ([facility])
[2020-06-22 18:16] VITALS: BP 137/88
[2020-06-22] MEDS: traZODone 50 MG TAB PO PRN (20:46)
[2020-06-23 06:43] VITALS: BP 110/57
[2020-06-23] MEDS: VITAMIN D 1,000 INTERNATIONAL UNITS TABLET PO SCH (08:24)
[2020-06-23] MEDS: SERTRALINE 100 MG TAB PO SCH (08:24)
[2020-06-23] MEDS ORDERED: PALIPERIDONE PALMITATE 234MG/1.5ML INJ (INVEGA)(FREE PSY INPT ONLY) IM ONE (11:00)
--- NOTE | 2020-06-23 18:09 | HPEPDOC ---
General Date of Admission Jun 22, 2020 at 16:56 Date of Service: Jun 23, 2020 Chief Complaint The patient is a 24-year-old male admitted with a reason for visit of Unspecified Dressive Disorder. Source: Patient Exam Limitations: No limitations History of Present Illness Patient is 24 years old male with history of depression, asthma, anxiety, schizophrenia presented to the hospital with psychosis. Patient stated that he had suicidal ideation. Patient was not compliant with his treatment and developed psychosis. Patient denies fever, chills, nausea, diarrhea, dysuria Home Medications Scheduled Cholecalciferol (Vitamin D3) (Vitamin D3) 1,000 Unit Tablet, 1,000 UNITS PO DAILY, (Reported) Hydroxyzine HCl (Hydroxyzine HCl) 50 Mg Tablet, 50 MG PO BID, (Reported) Paliperidone Palmitate (Invega Sustenna) 234 Mg/1.5 Ml Syringe, 234 MG IM QMONTH for antipsychotic Sertraline Hcl (Zoloft) 100 Mg Tablet, 200 MG PO DAILY, (Reported) Allergies Coded Allergies: No Known Drug Allergies (Verified Allergy, Unknown, 10/13/18) Past Medical History Medical History depression, asthma, anxiety, schizophrenia Social History * Smoker: Denies Alcohol: Denies Drugs: denies A-FIB/CHADSVASC A-FIB History Current/History of A-Fib/PAF?: No Current PO Anticoag Therapy: No Review of Systems Constitutional: Denies: Chills Eyes: Denies: Pain ENT: Denies: Head Aches Skin: Denies: Rash Pulmonary: Denies: Dyspnea Cardiovascular: Denies: Chest Pain Gastrointestinal: Denies: Nausea, Vomiting Genitourinary: Denies: Dysuria Hematologic: Denies: Bruising Endocrine: Denies: Polydipsia Musculoskeletal: Denies: Neck Pain, Back Pain Neurological: Denies: Weakness Psych: Reports: Anxiety, Depression Physical Examination General Exam: Negative: Alert, Cooperative Eye Exam: Positive: PERRLA ENT Exam: Positive: Atraumatic Neck Exam: Positive: Supple; Negative: JVD Chest Exam: Positive: Clear to auscultation Heart Exam: Positive: Rate Normal Telemetry: Positive: No significant arrhythmia Abdomen Exam: Positive: Normal bowel sounds Extremity Exam: Negative: Clubbing, Cyanosis Skin Exam: Positive: Nl turgor and temperature Neuro Exam: Positive: Strength at 5/5 X4 ext Psych Exam: Positive: Anxiety Vital Signs Vital Signs Date Time Temp Pulse Resp B/P (MAP) Pulse Ox O2 Delivery O2 Flow Rate FiO2 06/23/20 11:13 Room Air 06/23/20 06:43 97.5 90 16 110/57 (74) 95 Assessment/Plan Patient is 24 years old male with history of depression, asthma, anxiety, schizophrenia presented to the hospital with psychosis. Patient stated that he had suicidal ideation. Patient was not compliant with his treatment and developed psychosis. Patient denies fever, chills, nausea, diarrhea, dysuria Problems (1) Suicidal ideation Status: Acute Problem Text: defer to psych team (2) Asthma Status: Chronic Problem Text: continue inhalers Not in acte exacerbations Plan / VTE VTE Prophylaxis Ordered?: No VTE Exclusion Mechanical Proph: Low Risk for VTE ENEDELIA GABRIEL DO Jun 23, 2020 18:09
[2020-06-23] MEDS ORDERED: ALBUTEROL 90 MCG/ACT 8GM HFA INHALER INH PRN (18:15)
[2020-06-23 19:16] VITALS: BP 148/81
[2020-06-23] MEDS: traZODone 50 MG TAB PO PRN (20:06)
[2020-06-24 06:44] VITALS: BP 121/69
[2020-06-24] MEDS: SERTRALINE 100 MG TAB PO SCH (08:20)
[2020-06-24] MEDS: VITAMIN D 1,000 INTERNATIONAL UNITS TABLET PO SCH (08:20)
--- NOTE | 2020-06-24 13:08 | MHIPNPDOC ---
[facility] Progress Note Progress Note DATE OF SERVICE: 06/24/20 HISTORY: Patient is a 24 year old Single, Disabled, Domiciled, Male who reports to the ED with depression and suicidal thoughts to hang himself. Paulina chavez has had numerous psychiatric admissions to this facility. He states that due to recent verbal altercation with neighbors and his parents he has become very anxious, depressed and suicidal. He states that neighbors have been drunk, smoking crack cocaine and fighting with other neighbors including his family and making it difficult for him. He had a verbal altercation with them on Saturday in which they told him he was a "failure." Patient reports that much of his anxiety is that he has been unable to do some of the things he use to enjoy due to weather, COVID and unable to get a job. VITAL SIGNS: See below. CURRENT MEDICATIONS: See below. MENTAL STATUS EXAMINATION: Patient is a 24 year old Single, Disabled, Domiciled, Male who reports to the ED with depression and suicidal thoughts. Dressed appropriately in hospital scrubs and his hygiene and grooming is fair. Eye contact is minimal, denies psychomotor changes Speech: Is low volume, rate and tone Language skills are intact Thought processes including: linear and goal oriented Thought content: reports continued depression and anxiety. Denies suicida l/homicidal ideation, planning or intent. Abstract reasoning, and computation: fair Description of associations: denies, none observed Description of abnormal or psychotic thoughts: auditory hallucinations but low. Judgment: fair Insight: fair Orientation: alert and oriented to person, place, time and situation Recent and remote memory: intact Attention span and concentration: fair Language: average Fund of knowledge: below Mood: Depressed Mood Affect: Flat DIAGNOSES 1. Schizophrenia Disorder 2. Intellectual Disability ASSESSMENT: Patient reports that he continues to have depressive and anxiety symptoms today. States that "Loud Voice and Fighting" scares him and makes him have self harm thoughts. He had thoughts about hanging himself. Patient is mildly withdrawn and guarded in the interview. He states that he can contract for safety in the hospital. He is observed calm and cooperative on the unit, mildly isolative. MANAGEMENT PLAN: Continue all medications as ordered, we will discharge when patient is stable TIME SPENT: 25 minutes. Vital Signs Vital Signs Date Time Temp Pulse Resp B/P (MAP) Pulse Ox O2 Delivery O2 Flow Rate FiO2 06/24/20 06:44 97.8 93 14 121/69 (86) 96 Room Air Current Medications Current Medications Medications (Trade) Dose Ordered Sig/Gerson Route PRN Reason Start Time Stop Time Status Last Admin Dose Admin Acetaminophen (Tylenol Tab) 650 mg Q6HP PRN PO HEADACHE or DISCOMFORT 06/22/20 17:00 Al Hydrox/Mg Hydrox/Simethicone (Mylanta) 30 ml Q4HP PRN PO HEARTBURN/INDIGESTION 06/22/20 17:00 Albuterol Sulfate (Proventil, Ventolin Hfa) 2 puff Q6HP PRN INH SHORTNESS OF BREATH 06/23/20 18:15 Home Med (Med Rec Complete!) ASDIRECTED XX 06/21/20 20:30 06/21/20 20:22 DC Hydroxyzine HCl (Atarax) 50 mg BIDP PRN PO anxiety 06/22/20 17:00 Magnesium Hydroxide (Milk Of Magnesia) 30 ml DAILYPRN PRN PO CONSTIPATION 06/22/20 17:00 Sertraline HCl (Zoloft) 200 mg DAILY PO 06/23/20 09:00 06/24/20 08:20 Trazodone HCl (Desyrel) 50 mg QHSP PRN PO INSOMNIA 06/22/20 17:00 06/23/20 20:06 Vitamin D (Vitamin D) 1,000 units DAILY PO 06/23/20 09:00 06/24/20 08:20 Allergies Coded Allergies: No Known Drug Allergies (Verified Allergy, Unknown, 10/13/18) RENEE APREDES NP Jun 24, 2020 13:08
--- NOTE | 2020-06-24 15:15 | MHHPE ---
[facility] HISTORY AND PHYSICAL DATE OF ADMISSION: 06/22/2020 ATTENDING: Dr. Inés Lopez REASON FOR ADMISSION: Patient is a 24-year-old single, disabled, domiciled male who has a long history of psychiatric admissions to this facility for similar complaints. On this occurrence he is reporting depression and suicidal ideation. Patient self-presented to the emergency department (ED) accompanied by his father after expressing suicidal ideation to his psychiatrist, Dr. Ziegler, during his appointment. This prompted Dr. Ziegler to instruct patient's father to bring patient in to the emergency department for a mental health evaluation. Patient reports that he has been experiencing suicidal thoughts for approximately 1 week. States he thought the thoughts come and go "like a roller coaster." He reports increased anxiety and depression. Feels as though he has nothing left to do and that he has done everything he wants to do. He currently resides with his parents and younger brother. He is disabled, so he does not work or attend school. Patient states he feels useless because he does not do much at home and lacks a purpose. Patient does not attend school or work. He also reports that he has even less to do because or COVID preventing him from doing some the activities and daily routine that he had prior to COVID. Additionally, his other stressors are the bad weather, feeling that his depression medications is not working well. States that his schizophrenia is messing with him. Reports that he is due for his Invega injection that that his stress level and symptoms increase when he gets close to being due for his injection. He also states that his father was recently in a car accident, which increased his anxiety. He reports no current or history of homicidal ideation. Has a history of suicidal ideation and admits to current suicidal ideation. He does not have a current plan but has thought of hanging himself. States that he tied bed sheets together but did not actually put the bed sheets around his neck. He reports that approximately 2 weeks he was going to take an overdose of Vicodin but that a family member saw him opening the bottle and stopped him. He states that this resulted in his most recent admission to [facility] and states that if admitted today this would be his fifth inpatient stay. He reports a history of schizophrenia, depression, anxiety, and insomnia. Also reports a family history of bipolar on his paternal side. Currently seeks outpatient services with Dr. Ziegler at [facility]. Reports that he has had poor energy, anhedonia, lack of motivation, poor sleep, and states that he has negative voices telling him to kill himself. On interview, patient reports that he has been feeling depressed. On further investigation, patient reports that he felt depressed last week. His parents were fighting with neighbors and told them they had to be quiet. Patient reports that these neighbors are doing drugs and now fighting with his parents, this fighting including him and the neighbors telling him to mind his own "damn business," and he telling them that he needs to stay in control. The neighbors then in turn told him to get the "blank" out of here. PAST PSYCHIATRIC HISTORY: Patient reports five hospitalizations. This would be the fifth. Has a history of schizophrenia, schizoaffective, unspecified anxiety disorder, intellectual disability. Patient currently taking Invega Sustenna. Patient was due for that on Saturday next week. He received that injection today on 06/24/2020. SUICIDE AND HOMICIDE HISTORY: Patient reports in the past he has only had suicidal ideation, thoughts to hang himself. No reports of any homicidal ideation, planning, or intent. ALCOHOL AND DRUG HISTORY: Patient denies any alcohol or drug history. MEDICAL HISTORY: Patient reports surgery of double hernia, asthma. No other chronic or acute medical history. ALLERGIES: No known drug allergies. FAMILY HISTORY: Patient reports no medical history, no addictions, no psychiatric history, no reports of suicide attempts or completed suicide. SOCIAL HISTORY: Patient was born in [place], currently living with his parents and younger brother. He graduated high school but attended [employer]. Reports that his grandmother recently . Mother has multiple sclerosis, and this is a traumatic event for him. Has never been arrested. Reports he has never been a victim of crime. Reports no history of trauma. STRESSORS: Patient reports that loud noises and a lot of people bother him. Two supports are his family. MENTAL STATUS EXAMINATION: Patient is alert, oriented to person, place, time, and situation. Calm and cooperative in the interview. Making poor eye contact. His hygiene and grooming is unkempt. Dressed appropriately He is linear and goal oriented. Reporting depression, anxiety, suicidal ideation. No planning or intent. He does report a vague plan to hang himself. He presents with depressed mood and affect is flat is congruent. His cognitive functioning is fair. Reports command hallucinations at times, visual and auditory hallucinations. Insight and judgment are fair. Cognitive functioning is fair. Abstract reasoning is fair and congruent with his intellectual functioning which is below average. Memory is intact. DIAGNOSES 1. Schizoaffective disorder. 2. Intellectual/developmental disability. TREATMENT AND PLAN: Patient at this time reporting depression and suicidal ideation, feeling anxious. He does not appear to be actively suicidal, but based on his history he has had four other admissions with similar complaints. We will at this point start him on his home medications. He received his Invega Sustenna 234 mg intramuscular (IM) injection today. We will titrate medications as needed. We plan to discharge with appropriate followup when he is stable. TROY
[2020-06-24 16:18] VITALS: BP 117/71
[2020-06-24] MEDS: hydrOXYzine 50 MG TAB PO PRN (20:18)
[2020-06-25 06:54] VITALS: BP 120/79
[2020-06-25] MEDS: SERTRALINE 100 MG TAB PO SCH (08:07)
[2020-06-25] MEDS: VITAMIN D 1,000 INTERNATIONAL UNITS TABLET PO SCH (08:07)
--- NOTE | 2020-06-25 13:43 | MHIPNPDOC ---
[facility] Progress Note Progress Note DATE OF SERVICE: 06/25/20 HISTORY: 24-year-old male with numerous inpatient admissions and outpatient care. Presently under the care of Dr. Gregory. He was recently discharged but states within 3 days he felt depressed again. He describes himself as having schizophrenia, depression, anxiety and insomnia. He received his and vague injection here and his Zoloft was increased to 200. VITAL SIGNS: See below. NEW TEST RESULTS: None. CURRENT MEDICATIONS: See below. MENTAL STATUS EXAMINATION: Patient is a. 24-year old male, who is. Readmitted for depression. Speech: Is. Normal. Language skills are abnormalities. Thought processes including:, Feeling worthless. Thought content: As above. Abstract reasoning, and computation: Able to abstract. Description of associations: Loose associations. Description of abnormal or psychotic thoughts: At this time. His most abnormal thoughts were of depression and suicide. Judgment: Fair. Insight: Fair. Orientation: 3. Recent and remote memory: Intact. Attention span and concentration: Intact. Language:. No disturbance. Fund of knowledge: Adequate. Mood:. Improved. Affect: Congruent. DIAGNOSES: 1. Schizoaffective disorder. 2. Anxiety. 3., Insomnia. ASSESSMENT:, 24-year-old male with continued and chronic schizophrenia and depression MANAGEMENT PLAN:. As per ELECTROMECHANICAL ASSEMBLY TECHNICIAN. Outpatient care has been arranged. TIME SPENT: 30 minutes. Vital Signs Vital Signs Date Time Temp Pulse Resp B/P (MAP) Pulse Ox O2 Delivery O2 Flow Rate FiO2 06/25/20 06:54 97.0 87 18 120/79 (93) 98 Room Air Current Medications Current Medications Medications (Trade) Dose Ordered Sig/Gerson Route PRN Reason Start Time Stop Time Status Last Admin Dose Admin Acetaminophen (Tylenol Tab) 650 mg Q6HP PRN PO HEADACHE or DISCOMFORT 06/22/20 17:00 Al Hydrox/Mg Hydrox/Simethicone (Mylanta) 30 ml Q4HP PRN PO HEARTBURN/INDIGESTION 06/22/20 17:00 Albuterol Sulfate (Proventil, Ventolin Hfa) 2 puff Q6HP PRN INH SHORTNESS OF BREATH 06/23/20 18:15 Home Med (Med Rec Complete!) ASDIRECTED XX 06/21/20 20:30 06/21/20 20:22 DC Hydroxyzine HCl (Atarax) 50 mg BIDP PRN PO anxiety 06/22/20 17:00 06/24/20 20:18 Magnesium Hydroxide (Milk Of Magnesia) 30 ml DAILYPRN PRN PO CONSTIPATION 06/22/20 17:00 Sertraline HCl (Zoloft) 200 mg DAILY PO 06/23/20 09:00 06/25/20 08:07 Trazodone HCl (Desyrel) 50 mg QHSP PRN PO INSOMNIA 06/22/20 17:00 06/23/20 20:06 Vitamin D (Vitamin D) 1,000 units DAILY PO 06/23/20 09:00 06/25/20 08:07 Allergies Coded Allergies: No Known Drug Allergies (Verified Allergy, Unknown, 10/13/18) FIDENCIO OCAMPO MD Jun 25, 2020 13:43
[2020-06-25 16:14] VITALS: BP 123/74
[2020-06-25] MEDS: traZODone 50 MG TAB PO PRN (21:07)
[2020-06-26 06:27] VITALS: BP 148/88
[2020-06-26] MEDS: SERTRALINE 100 MG TAB PO SCH (08:33)
[2020-06-26] MEDS: VITAMIN D 1,000 INTERNATIONAL UNITS TABLET PO SCH (08:33)
--- NOTE | 2020-06-26 14:11 | MHIPNPDOC ---
[facility] Progress Note Progress Note DATE OF SERVICE: 06/26/20 HISTORY: Recently discharged Mr. Lozano, experienced hearing voices telling him to kill himself and seeing bugs. VITAL SIGNS: See below. NEW TEST RESULTS: None. CURRENT MEDICATIONS: See below. MENTAL STATUS EXAMINATION: Patient is a 24 -year old male, who is states she is feeling better. Speech: Is normal. Language skills are intact. Thought processes including:. States he is having a better mood and no longer hearing voices. Thought content: As above. Abstract reasoning, and computation:. Able to Abstract. Description of associations . No loose association Description of abnormal or psychotic thoughts:. No psychotic thought or abnormal thought described. Judgment: Improved. Insight:. Fair. Orientation: 3. Recent and remote memory:. No disturbance. Attention span and concentration: Intact. Language: No disturbance. Fund of knowledge: Full Mood: Euthymic. Affect:, Congruent. DIAGNOSES: 1. Schizoaffective disorder. 2. None. 3. None. ASSESSMENT: As above MANAGEMENT PLAN:. As per Sania Frankel. TIME SPENT: 30 minutes. Vital Signs Vital Signs Date Time Temp Pulse Resp B/P (MAP) Pulse Ox O2 Delivery O2 Flow Rate FiO2 06/26/20 06:27 97.1 94 18 148/88 (108) 98 Room Air Current Medications Current Medications Medications (Trade) Dose Ordered Sig/Gerson Route PRN Reason Start Time Stop Time Status Last Admin Dose Admin Acetaminophen (Tylenol Tab) 650 mg Q6HP PRN PO HEADACHE or DISCOMFORT 06/22/20 17:00 Al Hydrox/Mg Hydrox/Simethicone (Mylanta) 30 ml Q4HP PRN PO HEARTBURN/INDIGESTION 06/22/20 17:00 Albuterol Sulfate (Proventil, Ventolin Hfa) 2 puff Q6HP PRN INH SHORTNESS OF BREATH 06/23/20 18:15 Home Med (Med Rec Complete!) ASDIRECTED XX 06/21/20 20:30 06/21/20 20:22 DC Hydroxyzine HCl (Atarax) 50 mg BIDP PRN PO anxiety 06/22/20 17:00 06/24/20 20:18 Magnesium Hydroxide (Milk Of Magnesia) 30 ml DAILYPRN PRN PO CONSTIPATION 06/22/20 17:00 Sertraline HCl (Zoloft) 200 mg DAILY PO 06/23/20 09:00 06/26/20 08:33 Trazodone HCl (Desyrel) 50 mg QHSP PRN PO INSOMNIA 06/22/20 17:00 06/25/20 21:07 Vitamin D (Vitamin D) 1,000 units DAILY PO 06/23/20 09:00 06/26/20 08:33 Allergies Coded Allergies: No Known Drug Allergies (Verified Allergy, Unknown, 10/13/18) FIDENCIO OCAMPO MD Jun 26, 2020 14:11
[2020-06-26 16:14] VITALS: BP 129/84
[2020-06-26] MEDS: traZODone 50 MG TAB PO PRN (20:19)
[2020-06-27] MEDS: hydrOXYzine 50 MG TAB PO PRN (06:42)
[2020-06-27 07:07] VITALS: BP 132/75
[2020-06-27] MEDS: SERTRALINE 100 MG TAB PO SCH (08:49)
[2020-06-27] MEDS: VITAMIN D 1,000 INTERNATIONAL UNITS TABLET PO SCH (08:49)
[2020-06-27] MEDS ORDERED: INVE234I IM (09:17)
--- NOTE | 2020-06-27 12:01 | MHDSPDOC ---
[facility] Discharge Summary Discharge Summary DATE OF ADMISSION: Jun 22, 2020 at 16:56 DATE OF DISCHARGE: Jun 27, 2020 at 1131 DISCHARGE DIAGNOSES: 1. Schizoaffective Disorder, Depressed 2. Intellectual Disability REASON FOR ADMISSION: Patient is a 24 year old Single, Disabled, Domiciled, Male who reports to the ED with depression and suicidal thoughts to hang himself. Patient has had numerous psychiatric admissions to this facility. He states that due to recent verbal altercation with neighbors and his parents he has become very anxious, depressed and suicidal x 1 week. He states that neighbors have been drunk, smoking crack cocaine and fighting with other neighbors including his family and making it difficult for him. He had a verbal altercation with them on Saturday in which they told him he was a "failure." Patient reports that much of his anxiety is that he has been unable to do some of the things he use to enjoy due to weather, COVID and unable to get a job. CONSULTANTS INVOLVED: see Medical H + P by Hospitalist TREATMENT AND PROGRESS ON THE UNIT: Patient was admitted to the [facility] on a 9.39 legal status he was afforded the following treatment modalities: 1) Individual Therapy 2) Group Therapy 3) Medication Management 4) Milieu Therapy 5) Safe Environment HOSPITAL COURSE: Patient was admitted to [facility] on a 9.39 legal status and was started on his home medications. He was on routine observations and encouraged to participate in all of the treatment modalities which he was compliant with. Patient was given in Invega Sustenna a few days early and he was reporting today that he felt better. It appears that the crisis of his wanting to self harm had passed and he is not requesting to be discharged to home today. DISCHARGE ASSESSMENT: : In today's interview, patient is alert and oriented, pts dress is appropriate. Hygiene and grooming is improved. Smiles on approach and is pleasant and engaged in the interview. Denies depression and anxiety. Denies suicidal and homicidal ideation, planning or intent. Denies and is not observed with henri, psychotic symptoms of delusions, bizarre thinking, obsessions, paranoia, ruminations illogical thoughts, flight of ideas or having poor insight and judgement. Patient has normal mentation, declines further hospitalization on a voluntary status and meets criteria for discharge today. Patient encouraged to return to hospital if his symptoms worsen or change and encouraged to call unit if he/she/they needs to speak to provider for questions regarding medications or care. MENTAL STATUS EXAMINATION ON DISCHARGE: Patient is a 24 year old Single, Disabled, Domiciled, Male who reports to the ED with depression and suicidal thoughts to hang himself. Speech: Is fluid, conversant, normal rate, tone and volume Language skills are intact Thought processes including: linear and goal oriented Thought content: denies depression and anxiety. Denies suicidal/homicidal ideation, planning or intent. Abstract reasoning, and computation: fair Description of associations: denies, none observed Description of abnormal or psychotic thoughts: denies, none observed. Judgment: fair Insight: fair Orientation: alert and oriented to person, place, time and situation Recent and remote memory: intact Attention span and concentration: good Language: expansive Fund of knowledge: average Mood: Euthymic Mood Affect: reactive MEDICATIONS ON DISCHARGE: Patient continued on all home medications, his next Invega Sustenna Injection is due 07/21/20 PLAN/FOLLOWUP ARRANGEMENTS: Patient is following up with his psychiatrist Dr. Ziegler at [facility] The amount of time spent in the coordination of care for this patient was approximately 35 minutes. Vital Signs/I&Os Vital Signs Date Time Temp Pulse Resp B/P (MAP) Pulse Ox O2 Delivery O2 Flow Rate FiO2 06/27/20 07:07 99.1 125 16 132/75 (94) 97 Room Air Medications Scheduled Cholecalciferol (Vitamin D3) (Vitamin D3) 1,000 Unit Tablet, 1,000 UNITS PO DAILY, (Reported) Hydroxyzine HCl (Hydroxyzine HCl) 50 Mg Tablet, 50 MG PO BID, (Reported) Paliperidone Palmitate (Invega Sustenna) 234 Mg/1.5 Ml Syringe, 234 MG IM QMONTH for antipsychotic, #1 Injection is due 07/21/20 Sertraline Hcl (Zoloft) 100 Mg Tablet, 200 MG PO DAILY, (Reported) Allergies Coded Allergies: No Known Drug Allergies (Verified Allergy, Unknown, 10/13/18) RENEE PAREDES NP Jun 27, 2020 11:49
== END 2020-06-27 11:39 | disposition home or self-care (01) | DRG 750 ==
LOC: M ED 11:54 → M ED INP 06-22 16:56 → M PSY 06-22 17:51
PROVIDERS: ADMIT Dentist Oral and Maxillofacial Surgery; ATTEND Psychiatry & Neurology Psychiatry
DX: F25.1 Schizoaffective disorder, depressive type (principal); F79 Unspecified intellectual disabilities; R45.851 Suicidal ideations; Z91.5 Personal history of self-harm; J45.909 Unspecified asthma, uncomplicated; Z79.899 Other long term (current) drug therapy; F41.9 Anxiety disorder, unspecified; G47.00 Insomnia, unspecified

== ENCOUNTER 2020-11-26 20:58 | Emergency (ER) | payer MEDICAID, OTHER ==
[~2020-11-26] VITALS: Ht 185.4 cm; Wt 102.7 kg
[~2020-11-26 20:58] MED LIST changes: +ZOLO100T PO
[2020-11-26 21:45] LABS: HEMATOCRIT 42.3 % (42.0-52.0); HEMOGLOBIN 14.5 g/dl (13.5-17.5); MEAN CORPUSCULAR HEMOGLOBIN 26.8 pg (27.0-33.0); MEAN CORPUSCULAR HGB CONC 34.3 g/dl (32.0-36.5); MEAN CORPUSCULAR VOLUME 78.2 fl (80.0-96.0); PLATELET COUNT, AUTOMATED 334 10^3/uL (150-450); RED BLOOD COUNT 5.41 10^6/uL (4.30-6.10); WHITE BLOOD COUNT 7.9 10^3/uL (4.0-10.0)
[2020-11-26 22:16] LABS: AMPHETAMINES LEVEL URINE NEGATIVE (NEGATIVE); BARBITURATES URINE NEGATIVE (NEGATIVE); BENZODIAZEPINES URINE NEGATIVE (NEGATIVE); CANNABINOIDS URINE NEGATIVE (NEGATIVE); COCAINE METABOLITE URINE NEGATIVE (NEGATIVE); METHADONE URINE NEGATIVE (NEGATIVE); OPIATES URINE NEGATIVE (NEGATIVE); PHENCYCLIDINE URINE NEGATIVE (NEGATIVE)
[2020-11-26 22:31] LABS: ACETAMINOPHEN LEVEL < 2.0 UG/ML (10.0-30.0); ALBUMIN 3.8 GM/DL (3.2-5.2); ALT/SGPT 50 U/L (12-78); BILIRUBIN,DIRECT 0.1 MG/DL (0.0-0.2); BILIRUBIN,TOTAL 0.3 MG/DL (0.2-1.0); BLOOD UREA NITROGEN 9 MG/DL (7-18); CALCIUM LEVEL 8.7 MG/DL (8.5-10.1); CARBON DIOXIDE LEVEL 28 MEQ/L (21-32); CHLORIDE LEVEL 105 MEQ/L (98-107); CREATININE FOR GFR 0.88 MG/DL (0.70-1.30); ETHYL ALCOHOL (ETHANOL) < 0.003 % (0.000-0.010); GLOMERULAR FILTRATION RATE > 60.0 (>60); GLUCOSE, FASTING 113 MG/DL (70-100); SALICYLATE LEVEL < 1.7 MG/DL (5.0-30.0); SODIUM LEVEL 138 MEQ/L (136-145); TOTAL PROTEIN 7.9 GM/DL (6.4-8.2)
[2020-11-26] MEDS ORDERED: INVE234I IM (22:59)
[2020-11-26 23:38] LABS: RSV AMPLIFICATION NEGATIVE (NEGATIVE)
[2020-11-27 04:54] VITALS: BP 131/85
--- NOTE | 2020-11-28 20:14 | ECGEPIP ---
[facility] - ED Test Date: 2020-11-26 Pat Name: ELLYN BUSCH Department: Room: - Gender: Male Line Rider: KARLA : 1995 Requested By: LAMBERTO Phipps Order Number: [id number] Reading MD: Savanah Yo Measurements Intervals [place] Rate: 68 P: 49 NC: 132 QRS: 50 QRSD: 108 T: 56 QT: 400 QTc: 425 Interpretive Statements Normal sinus rhythm Incomplete right bundle branch block decreased rate 06/21/20 Electronically Signed on 11-28-2020 20:14:22 EDT by Savanah Yo
== END 2020-11-27 05:06 ==
LOC: M ED 20:58
DX: R45.851 Suicidal ideations (principal); I45.19 Other right bundle-branch block; J45.909 Unspecified asthma, uncomplicated; F33.9 Major depressive disorder, recurrent, unspecified; F20.9 Schizophrenia, unspecified; F41.9 Anxiety disorder, unspecified; G47.00 Insomnia, unspecified; Z79.899 Other long term (current) drug therapy

== ENCOUNTER 2021-03-06 03:06 | Inpatient (IN) | payer MEDICAID ==
[~2021-03-06] VITALS: Ht 185.4 cm; Wt 104.1 kg
[2021-03-06 04:12] LABS: HEMATOCRIT 39.2 % (42.0-52.0); HEMOGLOBIN 13.4 g/dl (13.5-17.5); MEAN CORPUSCULAR HEMOGLOBIN 26.5 pg (27.0-33.0); MEAN CORPUSCULAR HGB CONC 34.2 g/dl (32.0-36.5); MEAN CORPUSCULAR VOLUME 77.5 fl (80.0-96.0); PLATELET COUNT, AUTOMATED 332 10^3/uL (150-450); RED BLOOD COUNT 5.06 10^6/uL (4.30-6.10); WHITE BLOOD COUNT 10.8 10^3/uL (4.0-10.0)
[2021-03-06 04:31] LABS: AMPHETAMINES LEVEL URINE NEGATIVE (NEGATIVE); BARBITURATES URINE NEGATIVE (NEGATIVE); BENZODIAZEPINES URINE NEGATIVE (NEGATIVE); CANNABINOIDS URINE NEGATIVE (NEGATIVE); COCAINE METABOLITE URINE NEGATIVE (NEGATIVE); METHADONE URINE NEGATIVE (NEGATIVE); OPIATES URINE NEGATIVE (NEGATIVE); PHENCYCLIDINE URINE NEGATIVE (NEGATIVE)
[2021-03-06 04:50] LABS: ACETAMINOPHEN LEVEL < 2.0 UG/ML (10.0-30.0); ALBUMIN 3.4 GM/DL (3.2-5.2); ALT/SGPT 37 U/L (12-78); BILIRUBIN,DIRECT < 0.1 MG/DL (0.0-0.2); BILIRUBIN,TOTAL 0.2 MG/DL (0.2-1.0); BLOOD UREA NITROGEN 13 MG/DL (7-18); CALCIUM LEVEL 9.1 MG/DL (8.5-10.1); CARBON DIOXIDE LEVEL 29 MEQ/L (21-32); CHLORIDE LEVEL 105 MEQ/L (98-107); CREATININE FOR GFR 0.89 MG/DL (0.70-1.30); ETHYL ALCOHOL (ETHANOL) < 0.003 % (0.000-0.010); GLOMERULAR FILTRATION RATE > 60.0 (>60); GLUCOSE, FASTING 105 MG/DL (70-100); POTASSIUM SERUM 3.9 MEQ/L (3.5-5.1); SALICYLATE LEVEL < 1.7 MG/DL (5.0-30.0); SODIUM LEVEL 140 MEQ/L (136-145); TOTAL PROTEIN 7.5 GM/DL (6.4-8.2)
[2021-03-06] MEDS ORDERED: SERTRALINE 100 MG TAB PO ONE (07:45)
[2021-03-06 10:00] LABS: RSV AMPLIFICATION NEGATIVE (NEGATIVE)
--- NOTE | 2021-03-06 14:55 | MHIPNPDOC ---
[facility] Progress Note Progress Note DATE OF SERVICE: 03/06/21 HISTORY: As per previous history and presentation at the ED: "Patient arrived here ambulatory during the platform inspector hours. He is a vague historian who reports h/o gender identity issues. He says that he was dx with Schizophrenia a couple of years ago & currently sees Dr. Ziegler at [facility]. He reports feeling increasingly depressed over the last couple of weeks, although is unable to identify any stressors or concerns other than his gender dysphoria.He states that he has been sleeping excessively and had no energy over that span as well. He states that he had a suicidee attempt last night before presenting here, but trying to strangle himself with a shirt. At this moment he denies active SI, although says that he continues to feeling like hurting himself. He notes that the last time he felt this way, the suicidal thoughts returned within 24 hours. Patient denies h/o substance use." This proposal lead writer discussed patient's case and presentation with Avtar Smith and a decison was made in favor to admit the patient to an Inpatient Mental health Unit since at this time, he is not safe, he is a danger to self as is evidenced by hi saying he tried to commit suicide last night becofre going to the ED by trying to strangle himself with a shirt. He needs to be stabilized with medications, receive therapy and to be monitored for safety. Vital Signs Vital Signs Date Time Temp Pulse Resp B/P (MAP) Pulse Ox O2 Delivery O2 Flow Rate FiO2 03/06/21 03:06 97.5 99 18 126/80 (95) 97 Room Air Laboratory Data 24H Labs Laboratory Tests 2 03/06/21 03:18: Nucleated Red Blood Cells % (auto) 0.0, Anion Gap 6L, Glomerular Filtration Rate > 60.0, Calcium Level 9.1, Total Bilirubin 0.2, Direct Bilirubin < 0.1, Aspartate Amino Transf (AST/SGOT) 18, Alanine Aminotransferase (ALT/SGPT) 37, Alkaline Phosphatase 94, Total Protein 7.5, Albumin 3.4, Albumin/Globulin Ratio 0.8, Thyroid Stimulating Hormone (TSH) 5.320H, Salicylates Level < 1.7L, Urine Opiates Screen NEGATIVE, Urine Methadone Screen NEGATIVE, Acetaminophen Level < 2.0L, Urine Barbiturates Screen NEGATIVE, Urine Phencyclidine Screen NEGATIVE, Urine Amphetamines Screen NEGATIVE, Urine Benzodiazepines Screen NEGATIVE, Urine Cocaine Metabolite Screen NEGATIVE, Urine Cannabinoids Screen NEGATIVE, Ethyl Alcohol Level < 0.003 03/06/21 08:58: Coronavirus (COVID-19)(PCR) NEGATIVE, Influenza Type A (RT-PCR) NEGATIVE, Influenza Type B (RT-PCR) NEGATIVE, Respiratory Syncytial Virus (PCR) NEGATIVE CBC/BMP Laboratory Tests 03/06/21 03:18 Allergies Coded Allergies: No Known Drug Allergies (Verified Allergy, Unknown, 10/13/18) LUIS CHAN MD Mar 06, 2021 14:55
[2021-03-06] MEDS ORDERED: ACETAMINOPHEN TAB 650MG DOSE (2X325MG) PO PRN (17:15)
[2021-03-06] MEDS ORDERED: MAALOX 30 ML SUSP *UDC PO PRN (17:15)
[2021-03-06] MEDS ORDERED: traZODone 50 MG TAB PO PRN (17:15)
[2021-03-06] MEDS ORDERED: MOM 30ML SUSPENSION UDC PO PRN (17:15)
[2021-03-06 22:00] VITALS: BP 140/92
[2021-03-06] MEDS: PALIPERIDONE 3 MG ER TAB (INVEGA) PO SCH (22:19)
[2021-03-07 07:07] VITALS: BP 132/70
[2021-03-07] MEDS ORDERED: hydrOXYzine 50 MG TAB PO PRN (09:10)
--- NOTE | 2021-03-07 09:26 | MHHPEPDOC ---
General Date Of Admission: Mar 06, 2021 Legal Status: 9.39 Chief Complaint " I was not honest with my family, I was not opening up with my emotions." History of Present Illness HISTORY OF THE PRESENT ILLNESS: Patient is a 25 -year-old single, unemployed, domiciled , male, who is reporting suicidal ideations and depression. For the past month, feeling depressed and reports wanting to sleep excessively. [place] like sleeping forever. Suicidal plans to strangle himself with his shirt. States that he did strangle himself two nights ago but it wasn't working because "I am not good at tying knots." States like he feels like he is in the wrong body because "I feel more comfortable as a woman." States that he has crossed dress at times. He is fine to share a room with another male room mate PER ED REPORT: Patient arrived here ambulatory during the telehealth nurse educator hours. He is a vague historian who reports history of gender identity issues. He says that he was diagnosed with schizophrenia a couple years ago and currently sees Dr. Gregory at [facility]. He reports feeling increasingly depressed over the last couple of weeks, although he is unable to identify any stressors or concerns other than his gender dysphoria. He states that he has been sleeping excessively and has no energy of that span as well. He states that he has had a suicide attempt last night before presenting here, but trying to strangle himself with a shirt. At this moment he denies active suicidal ideation, although says that he continues to feel like hurting himself. He notes that the last time he felt this way, the suicidal thoughts returned within 24 hours Psychiatric Review of Systems Depression (2 or more weeks): depressed mood, insomnia/hypersomnia (excessive sleeping), decreased energy, psychomotor changes, suicidal thoughts, other (helpless) Sandi (4 or more days of): denies Psychosis: visual hallucination (fuzzy balls) PTSD: denies Anxiety: situational anxiety Anxiety/ 6 months or more of: restlessness, keyed up, easily fatigued, difficulty concentrating, sleep disturbance Past Psychiatric History Previous Psychiatric Diagnosis: History of schizophrenia, schizoaffective, unspecified anxiety disorder, intellectual disability Previous Psychiatric Admissions: 6 hospitalizations last hospitalization 06/22/2020 Suicide Attempts: Has suicidal gestures of choking himself with a shirt thoughts of hanging himself history of ideations only. Psychiatric Follow-up: He sees Dr. Gregory at [facility] Psychiatric medications: Invega Sustenna 234 mg last dose 04/03/2021, Invega oral 3 mg at at bedtime Past Medical History Medical Problems Asthma History of double hernia surgery Lung infection when he was born No known drug allergies Head Injury: No Seizures: No Hospitalizations: Yes Surgeries: Yes Family Medical/Psychiatric HX Medical Problems Mother, multiple sclerosis Fatherfibromyalgia Psychiatric Disorders: No Addiction: Yes (FatherEtOH) Suicide Attemps/Completions: No Addiction History denies Social History Childhood: Born in [facility] currently living with his parents and younger brother Abuse/Trauma: Denies history of abuse Current Living Situation: Lives with parents Education: Graduated high school, attended [employer], intellectual disability. Employment: Unemployed/disabled Social Support: Parents are supports Legal: No history of arrests or legal charge. Marital: Single, no children. Stressors: Patient reports that loud noises and a lot of people bother him. Mental Status Examination General Appearance: well groomed, appears stated age, hospital scubs/clothing Build: overweight Demeanor: guarded Eye Contact: average Activity: average Behavior: loss of interests Speech: clear Mood: depressed, anxious Affect: constricted Thought Process: logical/linear Thought Content (Other): none reported Thought Content (Aggressive): none reported Perception (Hallucinations): none reported Perception (Other): none reported Cognition (Impairment of): none reported Cognition(Intelligence Est.): borderline Oriented: Awake, Alert, Oriented times three Insight: fair Judgment: Fair Psychosis: Denies Diagnoses Schizoaffective disorder Intellectual /developmental disability A-FIB/CHADSVASC A-FIB History Current/History of A-Fib/PAF?: No Current PO Anticoag Therapy: No Assessment Patient is a 25-year-old single, intellectually disabled, domiciled, male who reports increased depression suicidal thoughts and body dysmorphia. He reports for the past month being depressed, feeling unmotivated, reporting inability to express his emotions to his family, and stating that he feels that he should have been born a woman. He had a recent suicidal gesture 2 nights ago of strangling himself with a shirt. He is not reporting to be actively suicidal at this time he has had 5 other psychiatric admissions with similar complaints with the exception of the body dysmorphia. Patient recently received his Invega Sustenna 234 mg on 04/03/2021. Patient to start his home medication with the addition of hydroxyzine 50 mg every 6 hours as needed for anxiety or agitation. We will titrate medications to therapeutic levels. Patient to be afforded individual and group therapy, medication management, milieu therapy and safe environment. Patient to be discharged to [facility] when he is stable. Initial Treatment Plan 1. Patient was admitted on a [9.39] status. 2. Complete history was obtained. 3. With patients permission, family will be contacted and database will be expanded. 4. Patients medication regimen will be reviewed and changed accordingly. 5. Patient will be provided with protected environment. 6. Patient will be treated with individual, group, and milieu therapies. 7. Patient will receive supportive psych-education. 8. Discharge planning will commence immediately. 9. Outpatient follow-up treatment will be strongly recommended. 10. The initial treatment plan will focus initially on: * Depression. * Risk for suicide. ESTIMATED LENGTH OF STAY: 5 -7 DAYS. TIME SPENT COUNSELING AND COORDINATING INITIAL CARE: 60 minutes. Tobacco Cessation Screen If Patient is a Smoker Patient is not a smoker Ordered/Pending Vital Signs Vital Signs Date Time Temp Pulse Resp B/P (MAP) Pulse Ox O2 Delivery O2 Flow Rate FiO2 03/07/21 07:07 98.5 90 16 132/70 (90) 96 Room Air Laboratory Data 24H Labs Laboratory Tests 2 03/06/21 08:58: Coronavirus (COVID-19)(PCR) NEGATIVE, Influenza Type A (RT-PCR) NEGATIVE, Influenza Type B (RT-PCR) NEGATIVE, Respiratory Syncytial Virus (PCR) NEGATIVE Medications Scheduled Cholecalciferol (Vitamin D3) (Vitamin D3) 1,000 Unit Tablet, 1,000 UNITS PO DAILY, (Reported) Paliperidone Palmitate (Invega Sustenna) 234 Mg/1.5 Ml Syringe, 234 MG IM QMONTH, (Reported) last dose in October 2020 Sertraline Hcl (Zoloft) 100 Mg Tablet, 200 MG PO DAILY, (Reported) Allergies Coded Allergies: No Known Drug Allergies (Verified Allergy, Unknown, 10/13/18) RENEE PAREDES PRODUCE ASSOCIATE Mar 07, 2021 07:29
[2021-03-07] MEDS ORDERED: ALBUTEROL 90 MCG/ACT 8GM HFA INHALER INH PRN (19:00)
--- NOTE | 2021-03-07 19:03 | HPEPDOC ---
General Date of Admission Mar 06, 2021 at 17:11 Date of Service: Mar 07, 2021 Chief Complaint The patient is a 25-year-old male admitted with a reason for visit of Schizoaffective Disorder. Source: Patient Exam Limitations: No limitations History of Present Illness Patient is 25 years old male with past medical history of asthma, of schizophrenia presented to hospital with suicidal ideation and depression For the past month, feeling depressed and reports wanting to sleep excessively. [place] like sleeping forever. Suicidal plans to strangle himself with his shirt. During my interview patient denied fever, chills, nausea, itching, diarrhea dysuria Home Medications Scheduled Cholecalciferol (Vitamin D3) (Vitamin D3) 1,000 Unit Tablet, 1,000 UNITS PO DAILY, (Reported) Paliperidone Palmitate (Invega Sustenna) 234 Mg/1.5 Ml Syringe, 234 MG IM QMONTH, (Reported) last dose in October 2020 Sertraline Hcl (Zoloft) 100 Mg Tablet, 200 MG PO DAILY, (Reported) Allergies Coded Allergies: No Known Drug Allergies (Verified Allergy, Unknown, 10/13/18) Past Medical History Medical History History of schizophrenia, schizoaffective, unspecified anxiety disorder, intellectual disability, asthma Surgical History History of double hernia surgery Family History Mother has multiple sclerosis, father fibromyalgia Social History * Smoker: Denies Alcohol: Denies Drugs: denies A-FIB/CHADSVASC A-FIB History Current/History of A-Fib/PAF?: No Current PO Anticoag Therapy: No Review of Systems Constitutional: Denies: Chills, Fever Eyes: Denies: Pain ENT: Denies: Head Aches Pulmonary: Denies: Dyspnea Cardiovascular: Denies: Chest Pain Gastrointestinal: Denies: Nausea Genitourinary: Denies: Dysuria Hematologic: Denies: Bruising Endocrine: Denies: Polydipsia Musculoskeletal: Denies: Neck Pain Neurological: Denies: Weakness Psych: Reports: Anxiety, Depression Physical Examination General Exam: Positive: Alert, Cooperative Eye Exam: Positive: PERRLA ENT Exam: Positive: Atraumatic Neck Exam: Positive: Supple; Negative: JVD Chest Exam: Positive: Clear to auscultation Heart Exam: Positive: Rate Normal Telemetry: Positive: No significant arrhythmia Abdomen Exam: Positive: Normal bowel sounds Extremity Exam: Positive: Clubbing Skin Exam: Positive: Nl turgor and temperature Neuro Exam: Positive: Normal Gait Psych Exam: Positive: Oriented x 3 Vital Signs Vital Signs Date Time Temp Pulse Resp B/P (MAP) Pulse Ox O2 Delivery O2 Flow Rate FiO2 03/07/21 07:07 98.5 90 16 132/70 (90) 96 Room Air Assessment/Plan Patient is 25 years old male with past medical history of asthma, of schizophrenia presented to hospital with suicidal ideation and depression For the past month, feeling depressed and reports wanting to sleep excessively. [place] like sleeping forever. Suicidal plans to strangle himself with his shirt. During my interview patient denied fever, chills, nausea, itching, diarrhea dysuria Problems (1) Asthma Status: Chronic Problem Text: Not in acute exacerbation Albuterol inhaler as needed (2) Depression with suicidal ideation Status: Acute Problem Text: Defer treatment to his psych team Plan / VTE VTE Prophylaxis Ordered?: No VTE Exclusion Mechanical Proph: Low Risk for VTE ENEDELIA GABRIEL DO Mar 07, 2021 19:03
[2021-03-07 19:05] VITALS: BP 135/86
[2021-03-07] MEDS: PALIPERIDONE 3 MG ER TAB (INVEGA) PO SCH (21:56)
[2021-03-08 06:15] VITALS: BP 141/82
[2021-03-08] MEDS: SERTRALINE 100 MG TAB PO SCH (12:04)
[2021-03-08] MEDS ORDERED: HOME MED LIST COMPLETE! XX SCH (14:30)
[2021-03-08] MEDS ORDERED: HYDR-3363 PO (14:30)
--- NOTE | 2021-03-08 15:45 | MHIPNPDOC ---
[facility] Progress Note Progress Note DATE OF SERVICE: 03/08/21 HISTORY: 22-year-old male with history of schizoaffective disorder admitted for suicide ideations. Cedrick has been on the unit for 2 days at this point in [facility], he denies suicidal ideation and reports that his mood is improved. He is interested in when he will be able to leave from the hospital. We reviewed his medications and discussed timing of his last injectable dose as well as what medication he was taking at home and how they have been working for him. He feels that Zoloft was not a good medication and would be interested in restarting it as this is not started on admission. Currently denies any side effects from his current medications. VITAL SIGNS: See below. NEW TEST RESULTS: See below. CURRENT MEDICATIONS: See below. MENTAL STATUS EXAMINATION: Patient is a 25-year old male, who is dressed in hospital clothing, wearing a mask and compliance with pandemic regulations. Speech: Is speech was spontaneous, clear, with regular rate, rhythm, and volume. Language skills are intact. Thought processes including: Logical, linear, goal oriented. Thought content: Denies SI, HI; reports feeling better and wanting to know more about his time that he will be spending on the unit. Abstract reasoning, and computation: [place]. Description of associations: Linear. Description of abnormal or psychotic thoughts: Denies AVH, does not appear paranoid or delusional. Judgment: Fair. Insight: Poor. Orientation: X3. Recent and remote memory: Intact. Attention span and concentration: Intact. Mood: "Better". Affect: Euthymic, blunted range, congruent to stated mood. DIAGNOSES: 1. Schizoaffective disorder, depressed type. 2. Intellectual disability. ASSESSMENT: Cedrick is improving with the stable unit. It is likely that his minor icide ideation was an expression of frustration. He does note that historically his time of year is difficult for him as he has lost several people who are important to him around this time a year and he is spends his time thinking about it, but strives his depression. Due to his changes in medications we will continue to monitor for safety and stabilization at this time and ensure continued progress. Oral Invega will be stopped as he received his last injection of sustained on 03/02/2021, and has been receiving this monthly as prescribed. Sertraline will be restarted 100 mg for a few nights and then 20 mg to get back to his original dose. MANAGEMENT PLAN: See above, will continue to work on observation for discharge planning. TIME SPENT: 15 minutes. Vital Signs Vital Signs Date Time Temp Pulse Resp B/P (MAP) Pulse Ox O2 Delivery O2 Flow Rate FiO2 03/08/21 06:15 98.1 103 14 141/82 (101) 97 Room Air Current Medications Current Medications Medications (Trade) Dose Ordered Sig/Gerson Route PRN Reason Start Time Stop Time Status Last Admin Dose Admin Acetaminophen (Tylenol Tab) 650 mg Q6HP PRN PO HEADACHE or MILD DISCOMFORT 03/06/21 17:15 Al Hydrox/Mg Hydrox/Simethicone (Mylanta) 30 ml Q4HP PRN PO HEARTBURN/INDIGESTION 03/06/21 17:15 03/07/21 13:19 Albuterol Sulfate (Proventil, Ventolin Hfa) 2 puff Q6HP PRN INH SHORTNESS OF BREATH 03/07/21 19:00 Hydroxyzine HCl (Atarax) 50 mg Q6HP PRN PO ANXIETY/AGITATION 03/07/21 09:10 Magnesium Hydroxide (Milk Of Magnesia) 30 ml DAILYPRN PRN PO CONSTIPATION 03/06/21 17:15 Paliperidone (Invega) 3 mg QHS PO 03/06/21 21:00 03/08/21 11:56 DC 03/07/21 21:56 Sertraline HCl (Zoloft) 100 mg Taper DAILY PO 03/08/21 09:00 03/12/21 08:59 03/08/21 12:04 Trazodone HCl (Desyrel) 50 mg QHSP PRN PO INSOMNIA 03/06/21 17:15 Allergies Coded Allergies: No Known Drug Allergies (Verified Allergy, Unknown, 10/13/18) FIDENCIO VENTURA MD Mar 08, 2021 12:40
[2021-03-08 18:31] VITALS: BP 133/75
[2021-03-09 06:25] VITALS: BP 152/95
[2021-03-09] MEDS: SERTRALINE 100 MG TAB PO SCH (08:00)
--- NOTE | 2021-03-09 15:49 | MHIPNPDOC ---
[facility] Progress Note Progress Note DATE OF SERVICE: 03/09/21 HISTORY: 22-year-old male with history of schizoaffective disorder admitted for suicide ideations. Cedrick has been on the unit for 2 days at this point in [facility], he denies suicidal ideation and reports that his mood is improved. He is interested in when he will be able to leave from the hospital. We reviewed his medications and discussed timing of his last injectable dose as well as what medication he was taking at home and how they have been working for him. He feels that Zoloft was not a good medication and would be interested in restarting it as this is not started on admission. Currently denies any side effects from his current medications. INTERVAL: Reports no difficulties with stopping of the Invega and increasing the sertraline. Does note that he tried utilizing trazodone last night and felt that he was quite sleepy with this. Overall feeling much improved, is interested in possibly being able to discharge leave the hospital tomorrow. Continues to deny suicidal ideation and has been participating in groups. Appears to be progressing well. VITAL SIGNS: See below. NEW TEST RESULTS: See below. CURRENT MEDICATIONS: See below. MENTAL STATUS EXAMINATION: Patient is a 25-year old male, who is dressed in hospital clothes, some staining noted on the chest of his shirt. Speech: Is speech was spontaneous, clear, with regular rate, rhythm, and volume. Language skills are intact. Thought processes including: Logical, linear, goal oriented. Thought content: Denies SI, HI, AVH; focused on being able to leave the hospital, feels that he is doing quite well. Abstract reasoning, and computation: Intact. Description of associations: Linear. Description of abnormal or psychotic thoughts: Denies AVH, no paranoia or delusions noted on interview. Judgment: Fair. Insight: Fair. Orientation: X3. Recent and remote memory: Intact. Attention span and concentration: Intact. Mood: "Pretty good". Affect: Euthymic, congruent to stated mood. DIAGNOSES: 1. Schizoaffective disorder depressed type. 2. Intellectual disability. ASSESSMENT: 22-year-old male with history intellectual disability and schizoaffective disorder with a depressed type who presented for worsening of mood and related to anniversaries of losses. Today Cedrick's reports that he is doing better, he acknowledges that he will continue to have thoughts about people that he has lost throughout his life but that he does not want to take his own life in relation to this. He does feel that the medications are working well and denies current side effects. Is interested in be able to leave the hospital as soon as he is able to. MANAGEMENT PLAN: Continue current medications as prescribed; will coordinate with case planner, patient already has appointment scheduled with his outpatient psychiatrist and therapist over the next 2 weeks. TIME SPENT: 15 minutes. Vital Signs Vital Signs Date Time Temp Pulse Resp B/P (MAP) Pulse Ox O2 Delivery O2 Flow Rate FiO2 03/09/21 06:25 98.3 87 16 152/95 (114) 95 Room Air Current Medications Current Medications Medications (Trade) Dose Ordered Sig/Gerson Route PRN Reason Start Time Stop Time Status Last Admin Dose Admin Acetaminophen (Tylenol Tab) 650 mg Q6HP PRN PO HEADACHE or MILD DISCOMFORT 03/06/21 17:15 Al Hydrox/Mg Hydrox/Simethicone (Mylanta) 30 ml Q4HP PRN PO HEARTBURN/INDIGESTION 03/06/21 17:15 03/07/21 13:19 Albuterol Sulfate (Proventil, Ventolin Hfa) 2 puff Q6HP PRN INH SHORTNESS OF BREATH 03/07/21 19:00 Home Med (Home Med List Complete!) ASDIRECTED XX 03/08/21 14:30 03/08/21 14:44 DC Hydroxyzine HCl (Atarax) 50 mg Q6HP PRN PO ANXIETY/AGITATION 03/07/21 09:10 Magnesium Hydroxide (Milk Of Magnesia) 30 ml DAILYPRN PRN PO CONSTIPATION 03/06/21 17:15 Paliperidone (Invega) 3 mg QHS PO 03/06/21 21:00 03/08/21 11:56 DC 03/07/21 21:56 Sertraline HCl (Zoloft) 100 mg Taper DAILY PO 03/08/21 09:00 03/12/21 08:59 03/09/21 08:00 Trazodone HCl (Desyrel) 50 mg QHSP PRN PO INSOMNIA 03/06/21 17:15 03/08/21 20:08 Allergies Coded Allergies: No Known Drug Allergies (Verified Allergy, Unknown, 10/13/18) FIDENCIO VENTURA MD Mar 09, 2021 15:49
[2021-03-09] MEDS ORDERED: traZODone 25MG PER 1/2 TABLET PO PRN (15:50)
[2021-03-09 19:26] VITALS: BP 127/78
[2021-03-10 06:10] VITALS: BP 137/90
[2021-03-10] MEDS: SERTRALINE 100 MG TAB PO SCH (09:40)
--- NOTE | 2021-03-10 10:30 | MHDSPDOC ---
[facility] Discharge Summary Discharge Summary DATE OF ADMISSION: Mar 06, 2021 at 17:11 DATE OF DISCHARGE: 03/10/2021 DISCHARGE DIAGNOSES: 1. Schizoaffective disorder, depressed type. 2. Intellectual disability. REASON FOR ADMISSION: Depressed mood with suicidal ideation and plan to strangle himself CONSULTANTS INVOLVED: Internal medicine for routine evaluation TREATMENT AND PROGRESS ON THE UNIT : Cedrick was admitted to the unit upon which time he expressed a lowered suicide ideation. He was briefly restarted on 3 mg of Invega at nighttime due to unclear indication of when he had received his last injection. Upon verifying that have been received on 02/28/2021 the Invega was stopped, additionally he was restarted on his home dose of sertraline, however due to a few days of missing it was at 100 mg will be increased to 200 mg for his regular dose upon discharge from the hospital. During his time on the unit he routinely engaged in groups, and found that he was less sad when interacting with people. He did acknowledge that he would always have his painful memories, but stated that he was finding ways to help himself not think about them in the future. HOSPITAL COURSE: Invega 3 mg started at admission, stopped on day 2 of admission after verification of his last outpatient injectable dose. Sertraline was held and was started on day 2 at 100 mg, will be increased to 200 mg for his regular dose upon discharge from the hospital. Throughout his stay Cedrick participated in groups and was pleasant and respectful. He denied any side effects from the medications, and was able to develop skills through attendance at group therapy. Overall was calm and cooperative with staff, and showed significant improvement upon admission. 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 We reviewed safety plans and discussed what he might need from others, he he stated that he would be able to talk with his family the next time he was having such negative/depressing thoughts. He has consistently denied suicidal ideation throughout my examinations of him, and reports that he is confident in his ability to maintain his safety upon discharge. He already has scheduled outpatient appointments with his regular providers Dr. Arredondo and Kyler May at the [facility] outpatient behavioral health clinic. He endorses plans to attend these, and states that he is looking forward to being able to return home and see his family again. MENTAL STATUS EXAMINATION ON DISCHARGE: Patient is a 25-year old male, who is dressed in hospital clothes, hygiene and grooming are fair. Wearing glasses, some stubble seen on his face. Speech is speech was spontaneous, clear, with regular rate, rhythm, and volume. Language skills are intact. Thought processes including: Logical, linear, goal oriented. Thought content: Focused on wanting to attend the opening of a new store; denies suicidal or homicidal ideation at this time. Abstract reasoning, and computation: Intact. Description of associations: Linear. Description of abnormal or psychotic thoughts: Denies AVH, paranoia or delusions. No paranoid delusions elicited on interview, did not appear internally preoccupied. Judgment: Fair. Insight: Fair. Orientation to x3. Recent and remote memory: Intact. Attention span and concentration: Intact. Fund of knowledge: Appropriate for age and educational level. Mood: "Good". Affect: Euthymic, stable, congruent to stated mood. MEDICATIONS ON DISCHARGE: -Sertraline 200 mg a day for depression. -Invega Sustenna 234 mg, next dose due 03/31/2021 for psychosis and mood stability. PLAN/FOLLOWUP ARRANGEMENTS: Discharged to home in care of self. Follow-up appointment scheduled with his regular providers, will see Dr. Ziegler on 03/15/2021, and Kyler May on 03/24/2021. The amount of time spent in the coordination of care for this patient was approximately 25 minutes. ETOH/Disorder Med Rx ETOH/DRUG DISORDER RX: N/A Vital Signs/I&Os Vital Signs Date Time Temp Pulse Resp B/P (MAP) Pulse Ox O2 Delivery O2 Flow Rate FiO2 03/10/21 06:10 96.5 93 18 137/90 (106) 96 Room Air Medications Scheduled Paliperidone Palmitate (Invega Sustenna) 234 Mg/1.5 Ml Syringe, 234 MG IM QMONTH for , (Reported) GOT LAST MONTH Sertraline Hcl (Zoloft) 100 Mg Tablet, 200 MG PO DAILY for , (Reported) Scheduled PRN Hydroxyzine HCl (Hydroxyzine HCl) 25 Mg Tablet, 25 MG PO DAILY PRN for ANXIETY, (Reported) Allergies Coded Allergies: No Known Drug Allergies (Verified Allergy, Unknown, 10/13/18) FIDENCIO VENTURA MD Mar 10, 2021 10:26
== END 2021-03-10 13:04 | disposition home or self-care (01) | DRG 750 ==
LOC: M ED 03:06 → M ED INP 17:11 → M PSY 20:40
PROVIDERS: ADMIT Psychiatry & Neurology Psychiatry; ATTEND Psychiatry & Neurology Psychiatry
DX: F25.1 Schizoaffective disorder, depressive type (principal); F79 Unspecified intellectual disabilities; J45.909 Unspecified asthma, uncomplicated; R45.851 Suicidal ideations; Z20.822 Contact with and (suspected) exposure to COVID-19; Z79.899 Other long term (current) drug therapy; Z63.4 Disappearance and death of family member

== ENCOUNTER → 2021-10-20 | Outpatient (CLI) | payer MEDICAID, OTHER ==
[~2021-10-20] MED LIST changes: -D31000TA2 PO; +HYDR-3363 PO; +VITA100093 PO
[2021-10-20 16:11] LABS: CHOLESTEROL RISK RATIO 5.838 (<5)
== END ==
LOC: M PLALAB 13:42
PROVIDERS: ATTEND Family Medicine
DX: Z13.220 Encounter for screening for lipoid disorders (principal)

== ENCOUNTER → 2025-01-27 | Outpatient (REF) | payer OTHER, MEDICAID ==
[2025-01-27 12:54] LABS: TOTAL 25(OH) VITAMIN D 29.2 NG/ML (20.0-100.0)
[2025-01-27 12:56] LABS: ALT/SGPT 31 U/L (7.0-40); AST/SGOT 18 U/L (<34); CALCIUM LEVEL 9.2 MG/DL (8.5-10.1); CARBON DIOXIDE LEVEL 27 MMOL/L (20-31); CHLORIDE LEVEL 101 MMOL/L (98-107); CHOLESTEROL LEVEL 154 MG/DL (<200); CHOLESTEROL RISK RATIO 4.35 (<5); CREATININE FOR GFR 0.84 MG/DL (0.70-1.30); GLOMERULAR FILTRATION RATE > 90.0 (>60); LDL CHOLESTEROL 96.0 MG/DL (<100); NON-HDL-C 118.6 MG/DL; POTASSIUM SERUM 3.8 MMOL/L (3.5-5.1); SODIUM LEVEL 134 MMOL/L (136-145); TRIGLYCERIDES LEVEL 113 MG/DL (<150)
[2025-01-27 13:34] LABS: ESTIMATED AVERAGE GLUCOSE 94.0 MG/DL (60-110)
== END ==
LOC: M LAB REF 12:06
PROVIDERS: ATTEND Student in an Organized Health Care Education/Training Program
DX: Z68.31 Body mass index [BMI] 31.0-31.9, adult (principal); E55.9 Vitamin D deficiency, unspecified